=== PATIENT | female | born 1960 | race Caucasian/White ===

== ENCOUNTER 2023-12-01 02:53 | Emergency (ER) | payer OTHER, MEDICARE, SELFPAY ==
--- NOTE | 2023-12-01 02:40 | ED.FALL ---
HPI - Fall General Chief Complaint: Fall Stated Complaint: fall going to BR History of Present Illness HPI Narrative: 63-year-old female who presents with right shoulder pain after falling from standing height while attempting to return to bed after going to the bathroom. No head injury or loss of consciousness reported. Patient reports being in her usual state of health prior to incident. Patient stated right shoulder pain is described as a dull, throbbing ache that is worse with range of motion and palpation. No medications used for symptom relief. EMS contacted the patient arrives via ambulance awake, alert, oriented x3, in no apparent distress and maintaining her own airway. Related Data Previous Rx's Medication Instructions Recorded oxycodone-acetaminophen 5 mg-325 1 tab PO Q4-6H PRN pain #20 tabs 12/01/23 mg tablet (Percocet) Allergies Allergy/AdvReac Type Severity Reaction Status Date / Time Sulfa (Sulfonamide Allergy Verified 12/01/23 03:16 Antibiotics) Penicillins AdvReac Verified 12/01/23 03:16 Review of Systems Review of Systems Narrative: See HPI for pertinent positives, otherwise review of systems negative Exam Initial Vital Signs Initial Vital Signs: Vital Signs Temperature 98.0 F 12/01/23 03:01 Pulse Rate 100 H 12/01/23 03:01 Respiratory Rate 22 12/01/23 03:01 Blood Pressure 161/70 H 12/01/23 03:01 Pulse Oximetry 95 12/01/23 03:01 Oxygen Delivery Method Room Air 12/01/23 03:01 Const General: cooperative, well developed, well groomed and No acute distress [facility] Head: normal to inspection, normocephalic, atraumatic, No contusion, No hematoma, No palpable skull fracture and No scalp tenderness Ears: external ears normal and TM's normal bilaterally Mouth: oral mucosae normal, tongue normal and oropharynx normal Teeth and gingiva: dentition normal Throat: uvula midline Eyes General: Yes appearance normal, both eyes and all related structures Neck Neck: normal visual inspection and full ROM Chest Chest: normal inspection of the chest, No crepitus and No tenderness Resp Effort & Inspection: normal respiratory effort and able to speak in complete sentences Cardio Rate: regular rate Rhythm: regular rhythm Pulses: radial pulses present GI Inspection: normal to inspection Palpation: soft, No guarding and No tender Other: Exam deferred Back/Spine/Pelvis Back: normal to inspection, No back tenderness, No ecchymosis and No erythema Cervical Spine: No cervical spinal tenderness and No step off deformity Thoracic/Lumbar Spine: thoracic and lumbar spine normal to inspection, No thoracic spinal tenderness and No lumbar spinal tenderness Skin General: no rashes or lesions noted Neuro General: patient alert, patient awake, patient oriented x3 and moves all extremities Extrem General: normal to inspection and capillary refill normal Other: Diffuse right tenderness, no obvious deformity, ecchymoses. Distal sensation and circulation intact of right upper extremity Psych Appearance: grossly normal (obese) Speech and Movement: speech and movement normal, agitated, speech clear and restless Mood: anxious mood and labile mood Course Course Course Narrative: See MDM Orders Ordered: ED Orders 12/01/23 02:54 XR shoulder RT 1V Stat 12/01/23 03:20 XR hand LT min 3V Stat Discontinued Medications Fentanyl (Fentanyl 100 Mcg/2 Ml Inj) 25 mcg IV NOW ONE Stop: 12/01/23 02:55 Last Admin: 12/01/23 03:17 Dose: 25 mcg Lidocaine (Lidocaine 5% Patch) 1 each TOP NOW ONE Stop: 12/01/23 03:05 Last Admin: 12/01/23 03:39 Dose: 1 each Midazolam HCl (Midazolam 2 Mg/2 Ml Vial) 0.5 mg IV NOW ONE Stop: 12/01/23 03:17 Last Admin: 12/01/23 03:30 Dose: 0.5 mg Morphine Sulfate (Morphine 4 Mg/Ml Inj) 4 mg IV NOW ONE Stop: 12/01/23 03:28 Last Admin: 12/01/23 03:38 Dose: 4 mg Morphine Sulfate (Morphine 4 Mg/Ml Inj) 4 mg IV NOW ONE Stop: 12/01/23 04:03 Last Admin: 12/01/23 04:13 Dose: 4 mg Vital Signs Vital signs: Vital Signs - 8 hr 12/01/23 03:01 12/01/23 03:02 12/01/23 03:02 Temperature 98.0 F Pulse Rate 100 H 107 H Respiratory Rate 22 Blood Pressure 161/70 H 188/88 H Pulse Oximetry 95 93 Oxygen Delivery Method Room Air 12/01/23 03:12 12/01/23 03:12 12/01/23 03:30 Temperature Pulse Rate 103 H 101 H Respiratory Rate Blood Pressure 161/70 H Pulse Oximetry 93 94 Oxygen Delivery Method 12/01/23 04:04 Temperature Pulse Rate 98 H Respiratory Rate 20 Blood Pressure Pulse Oximetry 94 Oxygen Delivery Method Room Air MDM - Fall Differential Diagnosis Differential diagnosis: Likely dislocation of shoulder region and other (Shoulder contusion, shoulder strain, left hand contusion, left neck strain) Imaging Data Shoulder and hand XR: My Impression: Right proximal humeral fracture, left hand x-ray not suggestive acute disease, fracture dislocation MDM Narrative Medical decision making narrative: Patient presents with mechanical fall from standing height while attempting to return from going to the bathroom. Patient denies head injury and loss of consciousness. No emergent imaging patient's head is warranted at this time looking for calvarial fracture, hemorrhage or infarct. Patient appears very anxious and acutely agitated with anxiety largely driving patient is Dung/presenting symptoms. Imaging shows right proximal humeral fracture. Splint given along with pain control and anxiolysis. Lidoderm patch given for further pain control. Orthopedic follow-up recommended for further evaluation and management. Return precautions given. Patient discharged home in stable condition. Discharge Plan Departure Patient Disposition: Home Clinical Impression: Contusion of right shoulder, initial encounter, Contusion of left hand, initial encounter Proximal humeral fracture Qualifiers: Encounter type: initial encounter Fracture type: closed Fracture morphology: unspecified fracture morphology Laterality: right Qualified Code(s): S42.201A - Unspecified fracture of upper end of right humerus, initial encounter for closed fracture Acute strain of neck muscle Qualifiers: Encounter type: initial encounter Qualified Code(s): S16.1XXA - Strain of muscle, fascia and tendon at neck level, initial encounter Instructions: DI for Contusion, How to Prevent Falls, DI for Humeral Fracture Activity Restrictions/Additional Instructions: No use of right upper extremity until cleared by orthopedics Prescriptions: New oxycodone-acetaminophen [Percocet] 5-325 mg tablet 1 tab PO Q4-6H PRN (Reason: pain) Qty: 20 0RF Referrals: Munir Navarrete MD [Physician] - As soon as possible (Right proximal humerus fracture) Elsa Munson ARNP [Primary Care Provider] - Stand Alone Forms: Patient Portal/API
--- NOTE | 2023-12-01 02:54 | DI.RAD.S_ITS ---
PROCEDURE: XR SHOULDER RT 1V INDICATIONS: fall with right shoulder pain TECHNIQUE: One-view of the shoulder was acquired. COMPARISON: None. FINDINGS: Bones: No acute fractures or dislocations on this single AP view. No suspicious bony lesions. Visualized ribs appear intact. Soft tissues: No suspicious soft tissue calcifications. IMPRESSION: No gross acute osseous abnormality on this single view. If clinical suspicion and/or symptoms persist, additional imaging with repeat plain films, or advanced imaging (e.g. CT, MRI) may be helpful for further assessment. Approved by: Amaury Roberts M.D. on 12/01/2023 at 8:01
[2023-12-01 03:01] VITALS: BP 161/70; PULSE 100; RESP 22; TEMP 36.7; O2SAT 95; BMI 42.3
[2023-12-01 03:02] VITALS: BP 188/88; PULSE 107; O2SAT 93
[2023-12-01 03:12] VITALS: BP 161/70; PULSE 103; O2SAT 93
[2023-12-01] MEDS: fentaNYL 100 MCG/2 ML INJ 25 MCG IV (03:17)
--- NOTE | 2023-12-01 03:20 | DI.RAD.S_ITS ---
PROCEDURE: XR HAND LT MIN 3V INDICATIONS: fall with left thumb bruising TECHNIQUE: Three views of the hand acquired. COMPARISON: None. FINDINGS: Bones: Small ossification is seen ulnar to the 1st metacarpal head and there is mild osseous irregularity at the ulnar base of the 1st proximal phalanx seen which could represent a displaced avulsion fracture fragment. Is subtle linear lucency is seen at the radial styloid that may be related to prominent trabecular markings although a nondisplaced fracture is not excluded. Carpal bones are normally aligned. Area of refraction versus small lucent lesion in the 2nd metacarpal shaft. [id number] osteoarthrosis throughout the hand and wrist. Bones are osteopenic. Soft tissues: No suspicious soft tissue calcifications. IMPRESSION: 1. Suspected small displaced avulsion fracture at the ulnar base of the 1st proximal phalanx. 2. Questionable lucency of the radial styloid on one view only could is likely related to the orientation of the trabecular markings although a nondisplaced fracture is not excluded. Recommend correlation for point tenderness. 3. Small lucent lesion in the 2nd metacarpal shaft is nonspecific but could represent an enchondroma versus focal osteopenia/refraction, although other osseous lesions are not excluded. Recommend correlation with any prior radiographs if available and follow-up radiographs in 6 months if asymptomatic. Findings of 1st proximal phalangeal fracture were discussed with Dr. Romero by telephone on 12/01/2023 at 8:25 AM. Approved by: Amaury Roberts M.D. on 12/01/2023 at 8:27
[2023-12-01 03:30] VITALS: PULSE 101; O2SAT 94
[2023-12-01] MEDS: MIDAZOLAM 2 MG/2 ML VIAL 0.5 MG IV (03:30)
[2023-12-01] MEDS: MORPHINE 4 MG/ML INJ IV ×2 (03:38→04:13)
[2023-12-01] MEDS: LIDOCAINE 5% PATCH 1 EACH TOP (03:39)
--- NOTE | 2023-12-01 04:03 | PC.NURSE ---
pt assisted to [facility] to urinate w/ tech, pt able to stand and bear weight to bilateral lower extremities, R arm in sling, pt able to manuever self w/ standby assist and gait belt in place. transferred to after.
[2023-12-01 04:04] VITALS: PULSE 98; RESP 20; O2SAT 94
== END 2023-12-01 04:28 | disposition home or self-care (01) ==
PROVIDERS: Emergency Provider Emergency Medicine; PCP Nurse Practitioner Family
DX: S42.201A Unspecified fracture of upper end of right humerus, initial encounter for closed fracture (principal); S16.1XXA Strain of muscle, fascia and tendon at neck level, initial encounter; S40.011A Contusion of right shoulder, initial encounter; S60.222A Contusion of left hand, initial encounter; W06.XXXA Fall from bed, initial encounter
CPT/HCPCS: 73020; 73130; 96374; 96375; 96376; 99283; 99284; J2250; J2270; J3010

== ENCOUNTER 2023-12-05 06:16 | Observation (INO) | payer OTHER, MEDICARE, SELFPAY ==
[2023-12-05] VITALS (39 sets, daily range): BP systolic 141–219; BP diastolic 68–100; PULSE 98–144; RESP 16–37; TEMP 36.1–36.8; O2SAT 91–98; BMI 37.4
--- NOTE | 2023-12-05 07:47 | DI.CT.S_ITS ---
PROCEDURE: CT CERVICAL SPINE WO CON INDICATIONS: neck injury tender midline TECHNIQUE: Noncontrast 3 mm thick sections acquired from the skull base to the T4 level. Sagittal and coronal reformats were then constructed. For radiation dose reduction, the following was used: automated exposure control, adjustment of mA and/or kV according to patient size. COMPARISON: [facility], CT, CT HEAD/BRAIN WO CON, 12/05/2023, 8:21. FINDINGS: Image quality: Excellent. Bones: No fractures or dislocations. Visualized superior ribs are intact. Multilevel degenerative changes. Soft tissues: Prevertebral soft tissues are normal in thickness. No paravertebral hematomas. No apical pneumothoraces. IMPRESSION: Multilevel degenerative changes without visualized fracture. Dictated by: Andreea Nava M.D. on 12/05/2023 at 8:42 Approved by: Andreea Nava M.D. on 12/05/2023 at 8:44
--- NOTE | 2023-12-05 07:47 | DI.RAD.S_ITS ---
PROCEDURE: XR CHEST 1V INDICATIONS: dyspnea TECHNIQUE: One view of the chest was acquired. COMPARISON: None. FINDINGS: Surgical changes and devices: None. Lungs and pleura: Lungs are clear. No pleural effusions or pneumothorax. Mediastinum: Mediastinal contours appear normal. Heart size is enlarged. Bones and chest wall: No suspicious bony lesions. Overlying soft tissues appear unremarkable. IMPRESSION: No acute cardiopulmonary abnormality is seen. Dictated by: Yoel Iyer M.D. on 12/05/2023 at 8:23 Approved by: Yoel Iyer M.D. on 12/05/2023 at 8:23
--- NOTE | 2023-12-05 07:47 | DI.CT.S_ITS ---
PROCEDURE: CT HEAD/BRAIN WO CON INDICATIONS: head injury, on plavix TECHNIQUE: Noncontrast 4.5 mm thick angled axial sections acquired from the foramen magnum to the vertex, with coronal and sagittal reformats. For radiation dose reduction, the following was used: automated exposure control, adjustment of mA and/or kV according to patient size. COMPARISON: None. FINDINGS: Image quality: Diagnostic. CSF spaces: Basal cisterns are patent. No extra-axial fluid collections. Ventricles are normal in size and shape. Brain: No midline shift. No intracranial masses or hemorrhage. Smith-white matter interface is normal. Hypodensities in the periventricular and subcortical white matter present as well as ildia suggestive of chronic microvascular ischemia. Skull and face: Calvarium and visualized facial bones are intact, without suspicious lesions. Sinuses: Visualized sinuses and mastoids are clear. IMPRESSION: 1. No acute intracranial process. 2. Mild chronic microvascular ischemic changes. Dictated by: Andreea Nava M.D. on 12/05/2023 at 8:45 Approved by: Andreea Nava M.D. on 12/05/2023 at 8:46
--- NOTE | 2023-12-05 07:50 | ED_ITS ---
HPI - Weakness General Chief complaint: Weakness Stated complaint: Weakness Time Seen by Provider: 12/05/23 07:07 Source: patient Mode of arrival: EMS History of Present Illness HPI Narrative: This is a 63-year-old female with a history of multiple strokes and residual right-sided weakness. She comes in today by ambulance with a chief complaint of generalized pain. Had a ground level fall and was seen here on the 01 of December. Had x-rays of the right shoulder that showed no fracture x-rays of the left hand that showed a couple of small fractures and she was splinted on the left hand and has a right arm in a sling. At baseline she walks with a walker. She says she is having difficulty getting around also today hurts all over feels generally weak, short of breath, and her legs feel ?tight? he is difficult to bend her knees. She has not having any chest pain nausea vomiting. She does have a headache. She says she takes Plavix she also has neck pain. Related Data Home Medications Medication Instructions Recorded Confirmed atorvastatin 80 mg tablet 80 mg PO DAILY 12/05/23 12/05/23 clopidogrel 75 mg tablet 75 mg PO DAILY 12/05/23 12/05/23 ergocalciferol (vitamin D2) 1,250 1,250 mcg PO 12/05/23 mcg (50,000 unit) capsule fenofibrate 54 mg tablet 54 mg PO DAILY 12/05/23 12/05/23 gabapentin 100 mg capsule PO 12/05/23 gabapentin 100 mg capsule PO 12/05/23 insulin glargine 100 unit/mL (3 unit SUBCUT 12/05/23 mL) subcutaneous pen (Lantus Solostar U-100 Insulin) insulin glargine-yfgn 100 unit/mL unit SUBCUT 12/05/23 (3 mL) subcutaneous pen insulin lispro 100 unit/mL SUBCUT 12/05/23 subcutaneous pen (Humalog KwikPen (U-100) Insulin) isosorbide mononitrate 30 mg 30 mg PO DAILY 12/05/23 12/05/23 tablet,extended release 24 hr metformin 500 mg tablet,extended 500 mg PO BID 12/05/23 12/05/23 release 24 hr metoprolol succinate 25 mg 25 mg PO DAILY 12/05/23 12/05/23 tablet,extended release 24 hr oxycodone-acetaminophen 5 mg-325 1 tab PO 4XD PRN Pain (Scale Score 12/05/23 12/05/23 mg tablet 7-10) pantoprazole 40 mg tablet,delayed 40 mg PO DAILY 12/05/23 12/05/23 release trazodone 100 mg tablet 100 mg PO ONCE PM 12/05/23 12/05/23 valsartan 320 mg tablet 320 mg PO DAILY 12/05/23 12/05/23 Previous Rx's Medication Instructions Recorded oxycodone-acetaminophen 5 mg-325 1 tab PO Q4-6H PRN pain #20 tabs 12/01/23 mg tablet (Percocet) Allergies Allergy/AdvReac Type Severity Reaction Status Date / Time Sulfa (Sulfonamide Allergy Verified 12/01/23 03:16 Antibiotics) Penicillins AdvReac Verified 12/01/23 03:16 Exam Initial Vital Signs Initial Vital Signs: Vital Signs Pulse Rate 127 H 12/05/23 06:24 Respiratory Rate 20 12/05/23 06:24 Blood Pressure 167/82 H 12/05/23 06:24 Pulse Oximetry 92 12/05/23 06:24 Oxygen Delivery Method Room Air 12/05/23 06:24 Const General: in distress and anxious HENMT Head: normocephalic and atraumatic Eyes Pupils: PERRL EOM: EOM intact bilaterally Neck Neck: supple and tender Resp Effort & Inspection: audible wheezes, cough and no respiratory distress Cardio Other: Regular rhythm a rate tachycardic no murmur or gallop GI Other: Often nontender with normal bowel sounds no CVAT Back/Spine/Pelvis Other: Thoracic and lumbar spine are nontender Skin Other: Warm and dry without abrasions or bruising Neuro Cranial Nerves: CN's II-XI intact bilaterally Cognition: abnormal cognition (Appears to be baseline) Speech: speech normal Other: Mild right-sided weakness Extrem Other: Has a splint on her left hand. Sling of the right shoulder tenderness right shoulder without deformity distal neurovascular is intact Course Orders Ordered: ED Orders 12/05/23 07:35 CBC Auto Diff [Complete Blood Count AUTO DIFF] Stat Lactate (Lactic Acid) Stat 12/05/23 07:47 CT cervical spine wo con Stat CT head/brain wo con Stat Chest [XR chest 1V] Stat EKG-12 Lead Stat 12/05/23 07:55 D Dimer Stat 12/05/23 08:35 CMP [Comprehensive Metabolic Panel] Stat Troponin I Stat 12/05/23 08:38 Covid-19 + FLU A/B + RSV - PCR Stat 12/05/23 10:51 BMP [Basic Metabolic Panel] Stat Troponin I Stat 12/05/23 11:13 UA Complete [Urinalysis and Microscopic] Stat Urine Culture Stat 12/05/23 12:14 CK [Creatine Kinase] Stat Nitroglycerin (Nitroglycerin 0.4 Mg Sl Tab) 0.4 mg SL [id number] PRN PRN Reason: Chest Pain Last Admin: 12/05/23 11:18 Dose: 0.4 mg Documented By: NOELLE Discontinued Medications Albuterol/Ipratropium (Albuterol/Ipratropium 3 Ml Ampul) 3 ml INH NOW ONE Stop: 12/05/23 09:33 Last Admin: 12/05/23 09:54 Dose: 3 ml Documented By: KORI Aspirin (Aspirin 81 Mg Chew Tab) 324 mg PO NOW ONE Stop: 12/05/23 10:41 Last Admin: 12/05/23 11:01 Dose: 324 mg Documented By: NOELLE Hydromorphone HCl (Hydromorphone 0.5 Mg Inj) 0.5 mg IV NOW ONE Stop: 12/05/23 07:48 Last Admin: 12/05/23 08:05 Dose: 0.5 mg Documented By: MELVIN Sodium Chloride (Normal Saline 0.9%) 1,000 mls @ 1,000 mls/hr IV BOLUS ONE Stop: 12/05/23 10:31 Last Infusion: 12/05/23 10:50 Dose: Infused Documented By: Admin: 12/05/23 09:50 Dose: 1,000 mls/hr Documented By: NOELLE Calcium Gluconate 4.65 meq/ (Sodium Chloride) 60 mls @ 180 mls/hr IV NOW ONE Stop: 12/05/23 09:51 Last Infusion: 12/05/23 11:19 Dose: Infused Documented By: Admin: 12/05/23 10:55 Dose: 180 mls/hr Documented By: NOELLE Ceftriaxone Sodium 2,000 mg/ (Sodium Chloride) 100 mls @ 200 mls/hr IV NOW ONE Stop: 12/05/23 12:01 Metoprolol Tartrate (Metoprolol Tartrate 5 Mg/5 Ml Inj) 5 mg IV Q5M [facility] Stop: 12/05/23 10:56 Last Admin: 12/05/23 11:31 Dose: 5 mg Documented By: Admin: 12/05/23 11:16 Dose: 5 mg Documented By: Admin: 12/05/23 11:04 Dose: 5 mg Documented By: NOELLE Metoprolol Tartrate (Metoprolol Ir 25 Mg Tablet) 25 mg PO NOW ONE Stop: 12/05/23 12:03 Nitroglycerin (Nitroglycerin Oint 1 Inch/Gm Oint...G.) 1 inch TOP NOW ONE Stop: 12/05/23 11:28 Last Admin: 12/05/23 11:48 Dose: 1 inch Documented By: NOELLE Vital Signs Vital signs: Vital Signs - 8 hr 12/05/23 06:24 12/05/23 07:30 12/05/23 08:00 Pulse Rate 127 H 120 H 121 H Respiratory Rate 20 37 H Blood Pressure 167/82 H 187/84 H 188/78 H Pulse Oximetry 92 93 92 Oxygen Delivery Method Room Air Room Air Room Air 12/05/23 08:31 12/05/23 08:35 12/05/23 09:20 Pulse Rate 128 H 128 H 137 H Respiratory Rate 30 H 27 H Blood Pressure 141/70 H 141/70 H 219/91 H Pulse Oximetry 92 91 97 Oxygen Delivery Method Room Air Nasal Cannula Nasal Cannula 12/05/23 09:20 12/05/23 09:30 12/05/23 09:30 Pulse Rate 138 H 137 H Respiratory Rate 35 H 27 H Blood Pressure 209/100 H Pulse Oximetry 98 97 Oxygen Delivery Method 12/05/23 09:40 12/05/23 09:40 12/05/23 09:50 Pulse Rate 133 H Respiratory Rate 21 Blood Pressure 190/79 H 194/89 H Pulse Oximetry 95 Oxygen Delivery Method 12/05/23 09:50 12/05/23 10:00 12/05/23 10:00 Pulse Rate 132 H 134 H Respiratory Rate 20 17 Blood Pressure 186/82 H Pulse Oximetry 94 91 Oxygen Delivery Method Room Air 12/05/23 10:11 12/05/23 10:11 12/05/23 10:20 Pulse Rate 140 H Respiratory Rate 24 Blood Pressure 181/83 H 187/85 H Pulse Oximetry 92 Oxygen Delivery Method 12/05/23 10:20 12/05/23 10:30 12/05/23 10:30 Pulse Rate 144 H 141 H Respiratory Rate 27 H 25 H Blood Pressure 183/73 H Pulse Oximetry 93 93 Oxygen Delivery Method 12/05/23 10:46 12/05/23 10:46 12/05/23 11:00 Pulse Rate 139 H 138 H Respiratory Rate 27 H 22 Blood Pressure 186/84 H Pulse Oximetry 93 92 Oxygen Delivery Method Room Air 12/05/23 11:00 12/05/23 11:10 12/05/23 11:10 Pulse Rate 119 H Respiratory Rate 23 Blood Pressure 178/77 H 180/80 H Pulse Oximetry 91 Oxygen Delivery Method 12/05/23 11:15 12/05/23 11:15 12/05/23 11:18 Pulse Rate 119 H 120 H Respiratory Rate 22 Blood Pressure 176/77 H 176/77 H Pulse Oximetry 92 Oxygen Delivery Method 12/05/23 11:20 12/05/23 11:20 12/05/23 11:25 Pulse Rate 121 H Respiratory Rate 19 Blood Pressure 155/74 H 142/68 H Pulse Oximetry 92 Oxygen Delivery Method 12/05/23 11:25 12/05/23 11:30 12/05/23 11:30 Pulse Rate 113 H 114 H Respiratory Rate 27 H 22 Blood Pressure 163/75 H Pulse Oximetry 92 92 Oxygen Delivery Method 12/05/23 11:35 12/05/23 11:35 12/05/23 11:40 Pulse Rate 109 H Respiratory Rate 25 H Blood Pressure 163/77 H 164/77 H Pulse Oximetry 92 Oxygen Delivery Method 12/05/23 11:40 12/05/23 11:45 12/05/23 11:45 Pulse Rate 110 H 111 H Respiratory Rate 21 20 Blood Pressure 166/73 H Pulse Oximetry 91 92 Oxygen Delivery Method Room Air 12/05/23 11:48 Pulse Rate 114 H Respiratory Rate Blood Pressure 166/73 H Pulse Oximetry Oxygen Delivery Method MDM - Weakness Medical Records Medical records narrative: Obtain discharge summary from [place] and reviewed discharge summary from 2019 Lab Data Lab results narrative: Initial potassium on [facility] is 6.0, repeat is 0.5. CBC with diff is unremarkable. Troponin is elevated, 0.66 trending down on rechecked. D-dimer is normal when adjusted for age, urinalysis shows pyuria and bacteriuria 12/05/23 07:35 12/05/23 10:51 Labs: Lab Results 12/05/23 12/05/23 12/05/23 Range/Units 07:35 07:55 08:35 WBC 10.4 (4.5-11.0) X10^3/uL RBC 4.33 (4.0-5.2) X10^6/uL Hgb 12.3 (12.0-16.0) g/dL Hct 37.2 (36-46) % MCV 85.8 (80-100) fL MCH 28.5 (26-34) PG MCHC 33.2 (30-36) % RDW 15.9 H (11.6-14.8) % Plt Count 271 (150-400) X10^3/uL Neut % (Auto) 79.9 H (50-75) % Lymph % (Auto) 9.7 L (25-40) % [place] % (Auto) 7.2 (3-14) % Eos % (Auto) 2.1 (2-4) % Baso % (Auto) 1.1 (0-2) % Neut # (Auto) 8300 H (5808-7738) /uL Lymph # (Auto) 1000 L (9015-6263) /uL [place] # (Auto) 800 (0-900) /uL Eos # (Auto) 200 (0-450) /uL Baso # (Auto) 100 (0-100) /uL D-Dimer 618 H (<500) ng/ml Sodium 135 L (137-145) mmol/L Potassium 6.0 H (3.4-5.1) mmol/L Chloride 102 (98-107) mmol/L Carbon Dioxide 23 (22-32) mmol/L BUN 56 H (7-17) mg/dL Creatinine 1.32 H (0.52-1.04) mg/dL Estimated GFR 45 L (>60) mL/min BUN/Creatinine Ratio 42.4 H (6-22) Glucose 184 H (80-110) mg/dL Lactate 1.4 (0.7-2.1) mmol/L Calcium 10.2 (8.4-10.2) mg/dL Total Bilirubin 0.9 (0.2-1.3) mg/dL AST 49 H (14-36) IU/L ALT 31 (<35) IU/L Alkaline Phosphatase 75 (38-126) U/L Troponin I 0.066 H (0.01-0.034) ng/mL Total Protein 7.9 (6.3-8.2) g/dL Albumin 4.3 (3.5-5.0) g/dL Globulin 3.6 (1.7-4.1) g/dL Albumin/Globulin Ratio 1.2 (1.0-2.8) Urine Color Urine Appearance Urine pH (4.5-8.0) Ur Specific [place] (1.000-1.035) Urine Protein (Negative) Urine Glucose (UA) (Negative) g/dL Urine Ketones (NEGATIVE) Urine Occult Blood (Negative) Urine Nitrate (Negative) Urine Bilirubin (NEGATIVE) Urine Urobilinogen (0.2) E.U./dL Ur Leukocyte Esterase (NEGATIVE) Urine RBC (0-5/HPF) Urine WBC (0-5/HPF) Ur Squamous Epith Cells (0-5/HPF) Urine Bacteria (None) Ur Culture Indicated? SARS-CoV-2 (PCR) (Negative) Influenza A (RT-PCR) (NEGATIVE) Influenza B (RT-PCR) (NEGATIVE) RSV (PCR) (Negative) 12/05/23 12/05/23 12/05/23 Range/Units 08:38 10:51 11:13 WBC (4.5-11.0) X10^3/uL RBC (4.0-5.2) X10^6/uL Hgb (12.0-16.0) g/dL Hct (36-46) % MCV (80-100) fL MCH (26-34) PG MCHC (30-36) % RDW (11.6-14.8) % Plt Count (150-400) X10^3/uL Neut % (Auto) (50-75) % Lymph % (Auto) (25-40) % [place] % (Auto) (3-14) % Eos % (Auto) (2-4) % Baso % (Auto) (0-2) % Neut # (Auto) (2216-9593) /uL Lymph # (Auto) (0372-5947) /uL [place] # (Auto) (0-900) /uL Eos # (Auto) (0-450) /uL Baso # (Auto) (0-100) /uL D-Dimer (<500) ng/ml Sodium 135 L (137-145) mmol/L Potassium 5.5 H (3.4-5.1) mmol/L Chloride 103 (98-107) mmol/L Carbon Dioxide 24 (22-32) mmol/L BUN 52 H (7-17) mg/dL Creatinine 1.26 H (0.52-1.04) mg/dL Estimated GFR 47 L (>60) mL/min BUN/Creatinine Ratio 41.3 H (6-22) Glucose 180 H (80-110) mg/dL Lactate (0.7-2.1) mmol/L Calcium 9.6 (8.4-10.2) mg/dL Total Bilirubin (0.2-1.3) mg/dL AST (14-36) IU/L ALT (<35) IU/L Alkaline Phosphatase (38-126) U/L Troponin I 0.046 H (0.01-0.034) ng/mL Total Protein (6.3-8.2) g/dL Albumin (3.5-5.0) g/dL Globulin (1.7-4.1) g/dL Albumin/Globulin Ratio (1.0-2.8) Urine Color Yellow Urine Appearance Sl cloudy Urine pH 5.5 (4.5-8.0) Ur Specific [place] 1.015 (1.000-1.035) Urine Protein Negative (Negative) Urine Glucose (UA) Negative (Negative) g/dL Urine Ketones Negative (NEGATIVE) Urine Occult Blood Negative (Negative) Urine Nitrate Positive H (Negative) Urine Bilirubin Negative (NEGATIVE) Urine Urobilinogen 0.2 (0.2) E.U./dL Ur Leukocyte Esterase 2+ H (NEGATIVE) Urine RBC 0-1/hpf (0-5/HPF) Urine WBC 10-30/hpf H (0-5/HPF) Ur Squamous Epith Cells 0-1 /hpf (0-5/HPF) Urine Bacteria Many (>30) H (None) Ur Culture Indicated? Specimen cultured SARS-CoV-2 (PCR) Negative (Negative) Influenza A (RT-PCR) Flu a negative (NEGATIVE) Influenza B (RT-PCR) Flu b negative (NEGATIVE) RSV (PCR) Negative (Negative) Imaging Data Chest x-ray: My Impression: Independently reviewed, no acute findings Radiologist Impression: No acute abnormality reported by Radiology CT scan - head: My Impression: Independent review no acute findings Radiologist Impression: No acute findings reported by Radiology CT - cervical spine: My Impression: Independent review, no acute findings Radiologist Impression: No acute findings reported by Radiology ECG Data Interpretation: EKG shows a regular rhythm that is probably sinus with a left bundle-branch block. Rate is 128 no old EKGs available for comparison. MDM Narrative Medical decision making narrative: 63-year-old female complaining of generalized weakness and generalized pain on arrival. She is noted to be hypertensive and tachycardic on arrival as well, is also wheezy. She was treated with albuterol and wheezing improved. EKG showed a left bundle-branch block, we have no old EKG available for comparison. Potassium and troponin were elevated, she was treated with IV fluids, nitrates aspirin calcium gluconate, hypertension was treated with metoprolol. She remained hypertensive heart rate is trending down, she has not having chest pain did have some chest tightness earlier but never endorsed chest pain. Urine looked infected she was given ceftriaxone IV. She will be admitted to the hospitalist service Discharge Plan Departure Patient Disposition: Admitted As Inpatient Clinical Impression: Acute hyperkalemia, Elevated troponin I level Urinary tract infection Qualifiers: Urinary tract infection type: site unspecified Hematuria presence: without hematuria Qualified Code(s): N39.0 - Urinary tract infection, site not specified
[2023-12-05 08:03] LABS: Add Manual Diff / Slide Review NO; Basophils Absolute Auto 100 /uL (0-100); Basophils Percent Auto 1.1 % (0-2); Eosinophils Absolute Auto 200 /uL (0-450); Eosinophils Percent Auto 2.1 % (2-4); Hematocrit 37.2 % (36-46); Hemoglobin 12.3 g/dL (12.0-16.0); Lymphocytes Absolute Auto 1000 /uL (1100-4500); Lymphocytes Percent Auto 9.7 % (25-40); Mean Corpuscular HGB Conc 33.2 % (30-36); Mean Corpuscular Hemoglobin 28.5 PG (26-34); Mean Corpuscular Volume 85.8 fL (80-100); Monocytes Absolute Auto 800 /uL (0-900); Monocytes Percent Auto 7.2 % (3-14); Neutrophils Absolute Auto 8300 /uL (1500-7000); Neutrophils Percent Auto 79.9 % (50-75); Platelet Count 271 X10^3/uL (150-400); Red Blood Cell Count 4.33 X10^6/uL (4.0-5.2); Red Cell Distribution Width 15.9 % (11.6-14.8); White Blood Cell Count 10.4 X10^3/uL (4.5-11.0)
[2023-12-05] MEDS: HYDROMORPHONE 0.5 MG INJ IV (08:05)
--- NOTE | 2023-12-05 08:12 | PC.NURSE ---
Pt came to the ED because she was having increased and uncontrollable pain in right arm from recent fall. Pt was seen here on 12/01 and dx with right humerus fx and right hand fx. Pt reports that she is feeling weaker and tired and every time she moves a sharp, shooting pain radiates down her right arm that she rates as a 10/10. Pt also c/o generalized weakness and has hx of stroke. Denies any n/v, sob, cp. Pt HR 124, bp 189/88, o2 98% on RA and RR 30. Skin pale and cool to touch. Pt answers all questions appropriately and a&ox4 but must stop frequently due to pain and exhaustion. Pt reports that she does not want to go home because she does not feel as though she or her are able care for her. Pt awaiting RN WOUND CARE consult. Dr Jacobsen notified of pt condition.
[2023-12-05 08:18] LABS: Lactate (Lactic Acid) 1.4 mmol/L (0.7-2.1)
[2023-12-05 08:53] LABS: Alanine Aminotransferase 31 IU/L (<35); Albumin 4.3 g/dL (3.5-5.0); Albumin Globulin Ratio 1.2 (1.0-2.8); Alkaline Phosphatase 75 U/L (38-126); Aspartate Aminotransferase 49 IU/L (14-36); BUN Creatinine Ratio 42.4 (6-22); Bilirubin Total 0.9 mg/dL (0.2-1.3); Blood Urea Nitrogen 56 mg/dL (7-17); Calcium 10.2 mg/dL (8.4-10.2); Carbon Dioxide 23 mmol/L (22-32); Chloride 102 mmol/L (98-107); Estimated Glomerular Filt Rate 45 mL/min (>60); Globulin 3.6 g/dL (1.7-4.1); Glucose 184 mg/dL (80-110); HEMOLYSIS < 15 (0-50); Sodium 135 mmol/L (137-145); Total Protein 7.9 g/dL (6.3-8.2)
[2023-12-05 09:22] LABS: Influenza A - CEPHEID Flu A NEGATIVE (NEGATIVE); Influenza B - CEPHEID Flu B NEGATIVE (NEGATIVE); Respiratory Syncytial Virus Negative (Negative)
[2023-12-05 09:23] LABS: COVID-19 CEPHEID 4-PLEX PCR Negative (Negative)
--- NOTE | 2023-12-05 09:31 | PC.NURSE ---
This RNs first interaction with patient. Pt moved from room 13 to room 6. Full bedding and gown change immediately after room change. Purewick device in place. Pt resting comfortably, AOx4, GCS 15.
[2023-12-05 09:46] LABS: D Dimer 618 ng/ml (<500)
[2023-12-05] MEDS: SODIUM CHLORIDE 0.9% 1,000 ML 1000 ML IV (09:50)
[2023-12-05] MEDS: ALBUTEROL/IPRATROPIUM 3 ML AMPUL INH (09:54)
[2023-12-05 10:01] LABS: Troponin I 0.066 ng/mL (0.01-0.034)
[2023-12-05] MEDS: CALCIUM GLUCONATE 4.65 MEQ in SODIUM CHLORIDE 0.9% 50 ML 180 MEQ IV (10:55)
[2023-12-05] MEDS: ASPIRIN 81 MG CHEW TAB 324 MG PO (11:01)
[2023-12-05] MEDS: METOPROLOL TARTRATE 5 MG/5 ML INJ IV ×3 (11:04→11:31)
[2023-12-05] MEDS: NITROGLYCERIN 0.4 MG SL TAB SL (11:18)
[2023-12-05 11:21] LABS: BUN Creatinine Ratio 41.3 (6-22); Blood Urea Nitrogen 52 mg/dL (7-17); Calcium 9.6 mg/dL (8.4-10.2); Carbon Dioxide 24 mmol/L (22-32); Chloride 103 mmol/L (98-107); Estimated Glomerular Filt Rate 47 mL/min (>60); Glucose 180 mg/dL (80-110); HEMOLYSIS < 15 (0-50); Potassium 5.5 mmol/L (3.4-5.1); Sodium 135 mmol/L (137-145)
[2023-12-05 11:22] LABS: Appearance Urine UA SL CLOUDY; Bilirubin Urine UA NEGATIVE (NEGATIVE); Color Urine UA YELLOW; Glucose Urine UA NEGATIVE (Negative); Ketones Urine UA NEGATIVE (NEGATIVE); Leukocyte Esterase Urine UA 2+ (NEGATIVE); Nitrite Urine UA POSITIVE (Negative); Occult Blood Urine UA NEGATIVE (Negative); Protein Urine UA NEGATIVE (Negative); Specific Gravity Urine UA 1.015 (1.000-1.035); Urobilinogen Urine UA 0.2 E.U./dL (0.2)
[2023-12-05 11:23] LABS: pH Urine UA 5.5 (4.5-8.0)
[2023-12-05 11:31] LABS: Troponin I 0.046 ng/mL (0.01-0.034)
[2023-12-05 11:35] LABS: Bacteria Urine Many (>30); Culture Indicated Urine Specimen Cultured; RBC Urine 0-1/HPF (0-5/HPF); Squamous Epithelial Cell Urine 0-1 /HPF (0-5/HPF); WBC Urine 10-30/HPF (0-5/HPF)
[2023-12-05] MEDS: NITROGLYCERIN OINT 1 INCH/GM OINT...G. TOP (11:48)
[2023-12-05] MEDS: METOPROLOL IR 25 MG TABLET PO (12:17)
[2023-12-05] MEDS: cefTRIAXone 2,000 MG in SODIUM CHLORIDE 0.9% 100 ML 200 MG IV (12:18)
[2023-12-05 13:03] LABS: Creatine Kinase 557 U/L (30-135)
--- NOTE | 2023-12-05 13:22 | PM.HP.1 ---
History of Present Illness History of Present Illness Date Patient Seen: 12/05/23 Chief complaint: Weakness Narrative: Mary Small is a 63yo F with PMH of multiple strokes on plavix, chronic R-sided deficits and uses walker, DM2 on insulin, hypertension, hyperlipidemia, GERD and insomnia who presents with R shoulder pain, falls and INGRIS. Patient states she became acutely weak at home today and fell. She recently fell at home and broke her R shoulder which has been in a sling. She also broke her L thumb which has been in a spica splint. Was suppoed to see ortho yesterday but she missed the appt. She reports significant pain in her R shoulder with movement. In the ED found to have an INGRIS and hyperkalemia of 6. Given IVF and this improved. She denies CP, NV, abd pain or diarrhea. PFSH Social History household members: spouse Smoking Status: Former smoker Meds Home Medications and Allergies Home Medications Medication Instructions Recorded Confirmed Type oxycodone-acetaminophen 5 mg-325 1 tab PO Q4-6H PRN pain #20 tabs 12/01/23 12/05/23 Rx mg tablet (Percocet) atorvastatin 80 mg tablet 80 mg PO DAILY 12/05/23 12/05/23 History clopidogrel 75 mg tablet 75 mg PO DAILY 12/05/23 12/05/23 History ergocalciferol (vitamin D2) 1,250 1,250 mcg PO QWEEK 12/05/23 12/05/23 History mcg (50,000 unit) capsule fenofibrate 54 mg tablet 54 mg PO DAILY 12/05/23 12/05/23 History gabapentin 100 mg capsule 100 mg PO QPM 12/05/23 12/05/23 History insulin glargine 100 unit/mL (3 47 unit SUBCUT BID 12/05/23 12/05/23 History mL) subcutaneous pen (Lantus Solostar U-100 Insulin) insulin lispro 100 unit/mL See Protocol SUBCUT AC 12/05/23 12/05/23 History subcutaneous pen (Humalog KwikPen (U-100) Insulin) isosorbide mononitrate 30 mg 30 mg PO DAILY 12/05/23 12/05/23 History tablet,extended release 24 hr metformin 500 mg tablet,extended 500 mg PO BID 12/05/23 12/05/23 History release 24 hr metoprolol succinate 25 mg 25 mg PO DAILY 12/05/23 12/05/23 History tablet,extended release 24 hr oxycodone-acetaminophen 5 mg-325 1 tab PO 4XD PRN Pain (Scale Score 12/05/23 12/05/23 History mg tablet 7-10) pantoprazole 40 mg tablet,delayed 40 mg PO DAILY 12/05/23 12/05/23 History release trazodone 100 mg tablet 100 mg PO ONCE PM 12/05/23 12/05/23 History valsartan 320 mg tablet 320 mg PO DAILY 12/05/23 12/05/23 History Allergies Allergy/AdvReac Type Severity Reaction Status Date / Time Sulfa (Sulfonamide Allergy Verified 12/01/23 03:16 Antibiotics) Penicillins AdvReac Verified 12/01/23 03:16 Review of Systems Review of Systems Narrative: All other systems reviewed with the patient and are negative unless otherwise stated. Exam Vital Signs (past 8 hours): - 12/05/23 06:24 12/05/23 07:30 12/05/23 08:00 Pulse Rate 127 H 120 H 121 H Respiratory Rate 20 37 H Blood Pressure 167/82 H 187/84 H 188/78 H Pulse Oximetry 92 93 92 Oxygen Delivery Method Room Air Room Air Room Air 12/05/23 08:31 12/05/23 08:35 12/05/23 09:20 Pulse Rate 128 H 128 H 137 H Respiratory Rate 30 H 27 H Blood Pressure 141/70 H 141/70 H 219/91 H Pulse Oximetry 92 91 97 Oxygen Delivery Method Room Air Nasal Cannula Nasal Cannula 12/05/23 09:20 12/05/23 09:30 12/05/23 09:30 Pulse Rate 138 H 137 H Respiratory Rate 35 H 27 H Blood Pressure 209/100 H Pulse Oximetry 98 97 Oxygen Delivery Method 12/05/23 09:40 12/05/23 09:40 12/05/23 09:50 Pulse Rate 133 H Respiratory Rate 21 Blood Pressure 190/79 H 194/89 H Pulse Oximetry 95 Oxygen Delivery Method 12/05/23 09:50 12/05/23 10:00 12/05/23 10:00 Pulse Rate 132 H 134 H Respiratory Rate 20 17 Blood Pressure 186/82 H Pulse Oximetry 94 91 Oxygen Delivery Method Room Air 12/05/23 10:11 12/05/23 10:11 12/05/23 10:20 Pulse Rate 140 H Respiratory Rate 24 Blood Pressure 181/83 H 187/85 H Pulse Oximetry 92 Oxygen Delivery Method 12/05/23 10:20 12/05/23 10:30 12/05/23 10:30 Pulse Rate 144 H 141 H Respiratory Rate 27 H 25 H Blood Pressure 183/73 H Pulse Oximetry 93 93 Oxygen Delivery Method 12/05/23 10:46 12/05/23 10:46 12/05/23 11:00 Pulse Rate 139 H 138 H Respiratory Rate 27 H 22 Blood Pressure 186/84 H Pulse Oximetry 93 92 Oxygen Delivery Method Room Air 12/05/23 11:00 12/05/23 11:10 12/05/23 11:10 Pulse Rate 119 H Respiratory Rate 23 Blood Pressure 178/77 H 180/80 H Pulse Oximetry 91 Oxygen Delivery Method 12/05/23 11:15 12/05/23 11:15 12/05/23 11:18 Pulse Rate 119 H 120 H Respiratory Rate 22 Blood Pressure 176/77 H 176/77 H Pulse Oximetry 92 Oxygen Delivery Method 12/05/23 11:20 12/05/23 11:20 12/05/23 11:25 Pulse Rate 121 H Respiratory Rate 19 Blood Pressure 155/74 H 142/68 H Pulse Oximetry 92 Oxygen Delivery Method 12/05/23 11:25 12/05/23 11:30 12/05/23 11:30 Pulse Rate 113 H 114 H Respiratory Rate 27 H 22 Blood Pressure 163/75 H Pulse Oximetry 92 92 Oxygen Delivery Method 12/05/23 11:35 12/05/23 11:35 12/05/23 11:40 Pulse Rate 109 H Respiratory Rate 25 H Blood Pressure 163/77 H 164/77 H Pulse Oximetry 92 Oxygen Delivery Method 12/05/23 11:40 12/05/23 11:45 12/05/23 11:45 Pulse Rate 110 H 111 H Respiratory Rate 21 20 Blood Pressure 166/73 H Pulse Oximetry 91 92 Oxygen Delivery Method Room Air 12/05/23 11:48 12/05/23 11:50 12/05/23 11:50 Pulse Rate 114 H 114 H Respiratory Rate 23 Blood Pressure 166/73 H 176/79 H Pulse Oximetry 91 Oxygen Delivery Method 12/05/23 11:55 12/05/23 11:55 12/05/23 12:00 Pulse Rate 113 H Respiratory Rate 20 Blood Pressure 180/79 H 177/69 H Pulse Oximetry 93 Oxygen Delivery Method 12/05/23 12:00 12/05/23 12:05 12/05/23 12:05 Pulse Rate 113 H 114 H Respiratory Rate 22 19 Blood Pressure 176/76 H Pulse Oximetry 91 93 Oxygen Delivery Method 12/05/23 12:10 12/05/23 12:10 12/05/23 12:15 Pulse Rate 115 H Respiratory Rate 22 Blood Pressure 169/75 H 172/72 H Pulse Oximetry 92 Oxygen Delivery Method 12/05/23 12:15 12/05/23 12:21 12/05/23 12:21 Pulse Rate 116 H 115 H Respiratory Rate 30 H 24 Blood Pressure 186/98 H Pulse Oximetry 93 92 Oxygen Delivery Method 12/05/23 12:25 12/05/23 12:25 12/05/23 12:30 Pulse Rate 113 H Respiratory Rate 24 Blood Pressure 179/77 H 177/81 H Pulse Oximetry 93 Oxygen Delivery Method 12/05/23 12:30 12/05/23 12:35 12/05/23 12:35 Pulse Rate 115 H 115 H Respiratory Rate 18 24 Blood Pressure 164/79 H Pulse Oximetry 92 93 Oxygen Delivery Method 12/05/23 12:40 12/05/23 12:40 Pulse Rate 112 H Respiratory Rate 18 Blood Pressure 161/72 H Pulse Oximetry 93 Oxygen Delivery Method Oxygen Delivery Method Room Air Narrative Exam Narrative: GEN: no acute distress, obese HEENT: moist mucous membranes, PERRL NECK: trachea midline, no JVD CV: regular rate and rhythm, no murmurs PULM: clear bilaterally ABD: soft, nontender, nondistended, no organomegaly EXT: warm and well perfused with no edema, R shoulder in sling NEURO: awake, alert, oriented, R-sided deficits, speech impediment from prior strokes Objective Labs 12/05/23 07:35 12/05/23 10:51 Labs: Laboratory Results - last 24 hr 12/05/23 12/05/23 12/05/23 07:35 07:55 08:35 WBC 10.4 RBC 4.33 Hgb 12.3 Hct 37.2 MCV 85.8 MCH 28.5 MCHC 33.2 RDW 15.9 H Plt Count 271 Neut % (Auto) 79.9 H Lymph % (Auto) 9.7 L [place] % (Auto) 7.2 Eos % (Auto) 2.1 Baso % (Auto) 1.1 Neut # (Auto) 8300 H Lymph # (Auto) 1000 L [place] # (Auto) 800 Eos # (Auto) 200 Baso # (Auto) 100 D-Dimer 618 H Sodium 135 L Potassium 6.0 H Chloride 102 Carbon Dioxide 23 BUN 56 H Creatinine 1.32 H Estimated GFR 45 L BUN/Creatinine Ratio 42.4 H Glucose 184 H Lactate 1.4 Calcium 10.2 Total Bilirubin 0.9 AST 49 H ALT 31 Alkaline Phosphatase 75 Total Creatine Kinase Troponin I 0.066 H Total Protein 7.9 Albumin 4.3 Globulin 3.6 Albumin/Globulin Ratio 1.2 Urine Color Urine Appearance Urine pH Ur Specific Beaman Urine Protein Urine Glucose (UA) Urine Ketones Urine Occult Blood Urine Nitrate Urine Bilirubin Urine Urobilinogen Ur Leukocyte Esterase Urine RBC Urine WBC Ur Squamous Epith Cells Urine Bacteria Ur Culture Indicated? SARS-CoV-2 (PCR) Influenza A (RT-PCR) Influenza B (RT-PCR) RSV (PCR) 12/05/23 12/05/23 12/05/23 08:38 10:51 11:13 WBC RBC Hgb Hct MCV MCH MCHC RDW Plt Count Neut % (Auto) Lymph % (Auto) [place] % (Auto) Eos % (Auto) Baso % (Auto) Neut # (Auto) Lymph # (Auto) [place] # (Auto) Eos # (Auto) Baso # (Auto) D-Dimer Sodium 135 L Potassium 5.5 H Chloride 103 Carbon Dioxide 24 BUN 52 H Creatinine 1.26 H Estimated GFR 47 L BUN/Creatinine Ratio 41.3 H Glucose 180 H Lactate Calcium 9.6 Total Bilirubin AST ALT Alkaline Phosphatase Total Creatine Kinase 557 H Troponin I 0.046 H Total Protein Albumin Globulin Albumin/Globulin Ratio Urine Color Yellow Urine Appearance Sl cloudy Urine pH 5.5 Ur Specific Beaman 1.015 Urine Protein Negative Urine Glucose (UA) Negative Urine Ketones Negative Urine Occult Blood Negative Urine Nitrate Positive H Urine Bilirubin Negative Urine Urobilinogen 0.2 Ur Leukocyte Esterase 2+ H Urine RBC 0-1/hpf Urine WBC 10-30/hpf H Ur Squamous Epith Cells 0-1 /hpf Urine Bacteria Many (>30) H Ur Culture Indicated? Specimen cultured SARS-CoV-2 (PCR) Negative Influenza A (RT-PCR) Flu a negative Influenza B (RT-PCR) Flu b negative RSV (PCR) Negative Assessment & Plan Assessment & Plan narrative: # INGRIS with hyperkalemia -likely prerenal as improving with IVF -continue IVF -hold home valsartan -low K diet -monitor Cr # mildly elevated troponin -likely demand ischemia -no chest pain # generalized weakness and falls -likely due to prior strokes and dehydration -PT/OT evals -NWB on R arm per ortho, pendulum ok # UTI -UA with pyuria -rocephin x3 days # hypertension -holding valsartan due to INGRIS and hyperK # type 2 diabetes -continue lantus and SSI # hyperlipidemia -continue statin # GERD -continue PPI Code status is full code. DVT prophylaxis with heparin. Proxy is . I have reviewed home meds and used all available resources to reconcile the home meds. Case discussed with ED physician/APC and patient will be admitted to the hospitalist service for further workup and management. This patient will be admitted as observation and will require less than 2 midnights of hospital time to treat INGRIS and weakness.
[2023-12-05] MEDS: SODIUM CHLORIDE 0.9% 1,000 ML 100 ML IV (16:01)
--- NOTE | 2023-12-05 16:16 | PT-IP ANOTE ---
PT eval received and EMR reviewed. pt with previous ED visit 12/01/23 and found to have R shoulder fx and R phalangeal fx. pt was placed on a sling and spica thumb splint per ED note. Checked with hospitalist to clarify if pt is needing ortho consult, and to put in sling and weight bearingn orders. hospital will f/u and agreed to do PT eval order after clarifications. will f/u.
--- NOTE | 2023-12-05 16:23 | PT-IP ANOTE ---
PT eval received and EMR reviewed. pt with previous ED visit 12/01/23 and found to have R shoulder fx and L 1st phalangeal fx. pt was placed on a sling and spica thumb splint per ED note. Checked with hospitalist to clarify if pt is needing ortho consult, and to put in sling and weight bearing orders. hospital will f/u and agreed to do PT eval order after clarifications. will f/u. Hospitalist informed PT regarding clarification but to do PT eval tomorrow. Stated that ortho MD Secrist consulted with pt and pt R shoulder is non-operative but is ok to do pendulum, NWB and sling on RUE and also spica thumb splint on L thumb. will checked on pt tomorrow for PT eval.
[2023-12-05] MEDS: OXYCODONE IR 10 MG TABLET PO ×2 (16:32→21:55)
[2023-12-05 16:55] LABS: Hemoglobin A1C% w Est Avg Glu 7.7 % (4.0-6.0)
[2023-12-05] MEDS: INSULIN LISPRO 100 UNIT/ML 3ML VIAL SUBCUT ×2 (17:11→21:36)
[2023-12-05] MEDS: ACETAMINOPHEN 325 MG TABLET 650 MG PO (18:21)
[2023-12-05] MEDS: TRAZODONE 50 MG TABLET 100 MG PO (21:28)
[2023-12-05] MEDS: GABAPENTIN 100 MG CAPSULE PO (21:28)
[2023-12-05] MEDS: INSULIN GLARGINE 100 UNIT/ML 3ML PEN 47 UNIT SUBCUT (21:35)
[2023-12-06] VITALS (7 sets, daily range): BP systolic 134–149; BP diastolic 66–101; PULSE 72–112; RESP 17–18; TEMP 36.2–37; O2SAT 92–98
[2023-12-06] MEDS: SODIUM CHLORIDE 0.9% 1,000 ML 100 ML IV (01:16)
[2023-12-06] MEDS: ACETAMINOPHEN 325 MG TABLET 650 MG PO ×2 (06:02→21:49)
[2023-12-06] MEDS: OXYCODONE IR 10 MG TABLET PO ×4 (06:03→21:49)
[2023-12-06 06:56] LABS: Add Manual Diff / Slide Review NO; Basophils Absolute Auto 100 /uL (0-100); Basophils Percent Auto 1.2 % (0-2); Eosinophils Absolute Auto 200 /uL (0-450); Eosinophils Percent Auto 2.3 % (2-4); Hematocrit 34.3 % (36-46); Hemoglobin 11.4 g/dL (12.0-16.0); Lymphocytes Absolute Auto 1200 /uL (1100-4500); Lymphocytes Percent Auto 14.4 % (25-40); Mean Corpuscular HGB Conc 33.3 % (30-36); Mean Corpuscular Hemoglobin 28.3 PG (26-34); Mean Corpuscular Volume 84.9 fL (80-100); Monocytes Absolute Auto 700 /uL (0-900); Monocytes Percent Auto 8.1 % (3-14); Neutrophils Absolute Auto 6200 /uL (1500-7000); Platelet Count 246 X10^3/uL (150-400); Red Blood Cell Count 4.03 X10^6/uL (4.0-5.2); Red Cell Distribution Width 16.3 % (11.6-14.8); White Blood Cell Count 8.3 X10^3/uL (4.5-11.0)
[2023-12-06 07:09] LABS: BUN Creatinine Ratio 34.5 (6-22); Blood Urea Nitrogen 30 mg/dL (7-17); Calcium 9.5 mg/dL (8.4-10.2); Carbon Dioxide 28 mmol/L (22-32); Chloride 102 mmol/L (98-107); Estimated Glomerular Filt Rate > 60 mL/min (>60); Glucose 139 mg/dL (80-110); HEMOLYSIS < 15 (0-50); Potassium 4.7 mmol/L (3.4-5.1); Sodium 136 mmol/L (137-145)
[2023-12-06 07:12] LABS: Magnesium 1.5 mg/dL (1.6-2.3)
[2023-12-06] MEDS: MAGNESIUM SULFATE 2 GM/50 ML PIGGYBACK IV (08:40)
[2023-12-06] MEDS: FENOFIBRATE, MICRONIZED 67 MG CAPSULE PO (08:52)
[2023-12-06] MEDS: ATORVASTATIN 20 MG TABLET 80 MG PO (08:52)
[2023-12-06] MEDS: PANTOPRAZOLE DR 40 MG TABLET PO (08:52)
[2023-12-06] MEDS: ISOSORBIDE MONONITRATE ER 30 MG TABLET PO (08:52)
[2023-12-06] MEDS: CLOPIDOGREL 75 MG TABLET PO (08:52)
[2023-12-06] MEDS: METOPROLOL ER 25 MG TABLET PO (08:52)
[2023-12-06] MEDS: INSULIN GLARGINE 100 UNIT/ML 3ML PEN 47 UNIT SUBCUT ×2 (08:57→21:57)
[2023-12-06] MEDS: INSULIN LISPRO 100 UNIT/ML 3ML VIAL SUBCUT ×4 (08:58→21:57)
--- NOTE | 2023-12-06 09:55 | PT.IIE ---
Current Diagnoses Acute kidney failure, unspecified (12/05/23) Physical Therapy Inpatient Evaluation/Re-Eval M1 PT/OT-IP Prior Functional Status Start: 12/06/23 11:18 Freq: NEEDED Status: Active Protocol: Document 12/06/23 09:55 AB (Rec: 12/06/23 11:48 AB [email or web address]) Medical Review Prior Functional Status Medical History Reviewed Yes Communication able to make needs known; [place] Mobility and Gait pt stated that she was modified independent with all mobilities and ambulation using a 4WW Prior Functional Level (Other details) pt went to the ED 12/01/23 after a fall. pt was sent home the same day. pt found to have a R shoulder fx and L 1st proximal phalangeal fx and was put on a sling and thumb spica splint. pt presented to the ED yesterday again due to weakness and difficulty moving at home and also c/o pain. Social History Household Members spouse Living Arrangements House Number of Floors (Floors) One Floor Number of Stairs To Enter/Railing? ramp to enter Home Environment Standard Height Toilet,Walk in Shower,Ramp Home Equipment Four Wheel Walker,Manual Wheelchair,Shower Seat with Backrest,Hand Held Shower,Lift Recliner,Grab Bars Near Toilet Additional Social History Comment pt has an adjustable bed at home but has been sleeping on her lift chair since shoulder fx M2 PT-IP Current Condition Start: 12/06/23 11:18 Freq: NEEDED Status: Active Protocol: Document 12/06/23 09:55 AB (Rec: 12/06/23 11:48 AB [email or web address]) Physical Therapy Current Condition Current Condition Evaluation Date 12/06/23 Treatment Diagnosis UTI; s/p fall; R shld fx; L 1st prox phalangeal fx; difficulty in walking Onset Date 12/05/23 M3 PT-IP Subjective Start: 12/06/23 11:18 Freq: NEEDED Status: Active Protocol: Document 12/06/23 09:55 AB (Rec: 12/06/23 11:48 AB [email or web address]) Subjective Physical Therapy Visit Type Type Initial Evaluation Visit Start Time 09:55 Visit Stop Time 11:03 Total Visit Minutes 68 Number of FIRER LOW PRESSURE Visits 0 Physical Therapy Visit Comments Patient Comments anxious and fearful of moving Therapy Pain Assessment Pain When Pain Assessed At Rest Pain Present Pain Present Pain Reported Location Right Shoulder Intensity 8 Scale Used Numeric (0 - 10) M4 PT-IP Mobility and Gait Start: 12/06/23 11:18 Freq: NEEDED Status: Active Protocol: Document 12/06/23 09:55 AB (Rec: 12/06/23 11:48 AB [email or web address]) PT-Bed Mobility Assessment Supine to Sit Supine to Sit Maximum Assistance,2 Person Assistance,Head of Bed Elevated Scooting Scooting to Edge of Bed Maximum Assistance PT-Transfer Assessment Sit to and From Stand Sit to and from Stand Maximum Assistance,2 Person Assistance,Use of Upper Extremities Equipment Transfer Assistive Device Gait Belt,Blue Walker Orthotic/Prosthetic Devices or Brace: No Transfers Transfer Destination Chair Transfer Technique Stand Step Pivot Transfer Ability Level of Assist Maximum Assistance,2 Person Assistance,Use of Upper Extremities Comments Mobility Comments pt supine in bed agreed to do PT but easily gets anxious and fearful of moving. PLOF and home set up obtained. BP: 133/ 78 O2 sat at RA varies: 88-94% MD: 112. pt tends to hold her breath and informed PT that she gets more anxious if she was told to breathe. asked nurse if pt can be given O2 during mobility and agreed . pt provided with 2L/min O2 and O2 sat increased to 98%. Assisted pt with donning of L thumb spica splint. pt completed supine to sit max Ax 2 and max cues with HOB elevated. pt sat on EOB CGA to min A and max cues. c/o increase pain. adjusted R shoulder sling on pt. attempted to obtain BP but pt is anxious and tensing up and unable to get an accurate reading. pt highly anxious and c/o increase pain requiring increase and frequent rest breaks in between activities. educated pt on use of hemiwalker for support. pt completed sit to stand max A x 2 and max cues. pt completed step transfer to chair using hemiwalker max A x 2 and max cues. positioned pt on the chair. Left pt with OT in room. Gait Assessment Comments Gait Comments unable at this time PT-Balance Assessment Sitting Balance and Reactions Static Sitting Balance Ability Fair Dynamic Sitting Balance Ability Fair Standing Balance and Reactions Static Standing Balance Ability Poor Dynamic Standing Balance Ability Poor Device Used hemiwalker M5 PT-IP Objective Assessments Start: 12/06/23 11:18 Freq: NEEDED Status: Active Protocol: Document 12/06/23 09:55 AB (Rec: 12/06/23 11:48 AB [email or web address]) Orientation Orientation/Cognition Level of Alertness Alert Orientation Name,Place,Situation Language Function Ability Hard of Hearing Safety Awareness Decreased Safety Awareness Memory Description No Deficits Noted Gross Range of Motion Lower Extremity ROM Assessment Within Functional Limits Impairments increase LLE extensor tightness Strength Lower Extremity Strength Assessment Bilaterally Impaired Hip 3+/5 Knee 4-/5 M6 PT-IP Treatment Start: 12/06/23 11:18 Freq: NEEDED Status: Active Protocol: Document 12/06/23 09:55 AB (Rec: 12/06/23 11:48 AB [email or web address]) Physical Therapy Treatment Education Education Provided Precautions,Weight Bearing Status,Safety M7 PT-IP Assessment and Plan Start: 12/06/23 11:18 Freq: NEEDED Status: Active Protocol: Document 12/06/23 09:55 AB (Rec: 12/06/23 11:48 AB [email or web address]) PT Summary Assessment and Plan Potential Rehabilitation Potential Fair Status of Condition at Evaluation Evolving Summary Impairments Pain,ROM,Strength,Balance, Coordination,Sensation,Tone, Cognition,Bed Mobility, Transfers,Gait,Activity Tolerance Assessment Summary pt is a 63 y/o F who presented to the ED due to weakness and pain. pt was at the ED 12/01 s/p fall and sustained a R shoulder fx and L thumb fx and was put on a R sling and L thumb spica splint. pt was having difficulty moving at home since pt was using a 4WW at baseline and after recent fall was unable to use a walker due to her fractures. pt requiring max A x 2 with bed mobility and transfers and unable to ambulate at this time. pt will require SNF rehab to improve overall strength and mobility. Goals Bed Mobility Goal Minimal Assistance Transfer Goal Moderate Assistance Gait Goal Moderate Assistance,Blue Walker Gait Distance 25 Other Goals improve bed mobility, transfers, ambulation using LRAD ~ 100 ft SBA Days to Meet Goals 10 Frequency of Treatment Frequency Of Treatment Once a Day Treatment Plan Physical Therapy Treatment Plan Bed Mobility Training,Transfer Training,Gait Training, Therapeutic Exercise,Balance Retraining,Discharge Planning, Hot or Cold Pack,Neuromuscular Re-ed,Coordination Retraining ,Manual Therapy Precautions Shoulder Precautions Sling,Pendulums Weight Bearing Status Weight Bearing Status Non-Weight Bearing Allowed Weight Bearing Amount (enter % RUE NWB or #) (%) Recommendations To Nursing Amount of Assist Needed Mechanical Lift Discharge Recommendations PT Discharge Recommendations SNF Rehab Transportation Needs at Discharge Wheelchair/Cabulance
[2023-12-06] MEDS: cefTRIAXone 1,000 MG in SODIUM CHLORIDE 0.9% 100 ML 200 MG IV (11:07)
--- NOTE | 2023-12-06 11:30 | OT.IP.EVAL ---
Current Diagnoses Acute kidney failure, unspecified (12/05/23) Occupational Therapy Inpatient Evaluation/Re-Eval M1 PT/OT-IP Prior Functional Status Start: 12/06/23 13:44 Freq: NEEDED Status: Active Protocol: Document 12/06/23 10:27 [facility] (Rec: 12/06/23 14:11 [facility] [id number]) Medical Review Prior Functional Status Medical History Reviewed Yes Communication able to make needs known; [place] Mobility and Gait pt stated that she was modified independent with all mobilities and ambulation using a 4WW Activities of Daily Living and IADL's Prior to her fall able to do ADL and IADL needs. Prior Functional Level (Other details) pt went to the ED 12/01/23 after a fall. pt was sent home the same day. pt found to have a R shoulder fx and L 1st proximal phalangeal fx and was put on a sling and thumb spica splint. pt presented to the ED yesterday again due to weakness and difficulty moving at home and also c/o pain. Social History Household Members spouse Living Arrangements House Number of Floors (Floors) One Floor Number of Stairs To Enter/Railing? ramp to enter Home Environment Standard Height Toilet,Walk in Shower,Ramp Home Equipment Four Wheel Walker,Manual Wheelchair,Bedside Commode, Shower Seat with Backrest,Hand Held Shower,Lift Recliner, Grab Bars Near Toilet Additional Social History Comment pt has an adjustable bed at home but has been sleeping on her lift chair since shoulder fx. Pt states had a large personal watermelon size ovarian cyst take out a few years ago and since that time has had a weak core and use of the lift chair to come to stand. M2 OT-IP Current Condition Start: 12/06/23 13:44 Freq: Status: Active Protocol: Document 12/06/23 10:27 [facility] (Rec: 12/06/23 14:11 [facility] [id number]) Occupational Therapy Current Condition Current Condition Evaluation Date 12/06/23 Treatment Diagnosis UTI, Right shoulder fx, Left 1st proximal phalangeal fx Post Operative Precautions Shoulder Precautions Sling Other Precautions RUE in sling, thumb spica for left hand. Weight Bearing Status Allowed Weight Bearing Amount (enter % NWB RUE, avoid pressure on base of left or #) (%) thumb. M3 OT- IP Subjective and Pain Start: 12/06/23 13:44 Freq: Status: Active Protocol: Document 12/06/23 10:27 [facility] (Rec: 12/06/23 14:11 [facility] [id number]) OT- Subjective Occupational Therapy Visit Type Type Initial Evaluation Visit Start Time : Visit Stop Time 11:30 Total Visit Minutes 63 Occupational Therapy Visit Comments Patient Comments Pt agreed to get up and PT also present during initial therapy evals. Patient/Caregiver Goals TO get better. OT Pain Assessment Pain When Pain Assessed During Mobility Pain Present Pain Present Pain Reported Location Right Shoulder Intensity 7 Scale Used Numeric (0 - 10) M4 OT- IP ADL's Start: 12/06/23 13:44 Freq: Status: Active Protocol: Document 12/06/23 10: [facility] (Rec: 12/06/23 14:11 [facility] [id number]) OT [id number] General Evaluation Areas Needing Assistance Cutting Food,Opening Containers Comments OT Self-Feeding Comments Pt needing assist with set-up and has requested finger foods from the kitchen. Pt state not wanting to have enlarged utensils at this time. OT ADL-Grooming General Evaluation Grooming Ability Minimal Assistance Areas Needing Assistance Retrieving/Set-up of Grooming Items,Combing/Brushing Hair Comments OT Grooming Comments Pt able to do with set-up , but needing assist to brush her hair due to difficulty to hold the brush in her left hand . OT ADL-Oral Care General Eval Oral Care Ability Standby Assistance Comments Oral Care Comments Able to do while seated in the recliner. OT ADL-Dressing General Eval Lower Body Dressing Ability Total Assistance Areas Needing Assistance Underpants/Brief,Socks Comments OT Dressing Comments Pt needing total assist at this time due to her NWB for RUE and left hand in the thumb spica. OT ADL-Toileting General Evaluation Toileting Ability Total Assistance Comments OT Toileting Comments Purewick in place at this time . OT ADL-Bathing Comments OT Bathing Comments Sponge bath more appropriate this time due to decreased mobility. M5 OT- IP IADL's Start: 12/06/23 13:44 Freq: Status: Active Protocol: Document 12/06/23 10:27 [facility] (Rec: 12/06/23 14:11 [facility] [id number]) OT-Instrumental Activities of Daily Living Deficits IADL Deficits Identified Deficits Home Safety Awareness Awareness of Need for Assistance at Home Good Awareness Ability to Problem Solve Emergency Able to Problem Solve Situations Medication Management Medication Management Comments Pt will need assist due to decreased use of her hands at this time. Money Management Money Management Caregiver Provides Assistance Meal Preparation Meal Preparation Caregiver Provides Assist Tie In Machine Operator Tie In Machine Operator Caregiver Provides Assist M6 OT- IP Functional Cognition Start: 12/06/23 13:44 Freq: Status: Active Protocol: Document 12/06/23 10:27 [facility] (Rec: 12/06/23 14:11 [facility] [id number]) Cognitive Factors Limiting Selfcare Function Cognitive Ability Level of Alertness Alert Patient Orientation Name,Age,Birthday,Month,Date, Year,Day of Week,Place, Situation Attention Span Ability Capable of Focused Attention, Capable of Sustained Attention Ability to Follow Commands Able to Follow One Step Commands Cognitive Comments Cognitive Assessment Comments Pt able to follow commands for ADL and mobility needs. Pt able to take deep breaths as needed. Pt let therapists know that it makes her more anxious if someone tells her to take deep breaths. OT- Vision and Hearing OT- Hearing Assessment OT- Hearing Assessment WFL OT- Vision Assessment Vision History Cataracts Visual Acuity Glasses All The Time Visual Attentiveness WFL Occular Pursuits WFL M7 OT- IP Mobility and Balance Start: 12/06/23 13:44 Freq: Status: Active Protocol: Document 12/06/23 10:27 [facility] (Rec: 12/06/23 14:11 [facility] [id number]) OT- Bed Mobility Assessment Supine to Sit Supine to Sit Assist Maximum Assistance,2 Person Assistance Scooting Scooting to Edge of Bed Maximum Assistance,1 Person Assistance OT-Transfer Assessment Sit to and From Stand Sit to and from Stand Maximum Assistance,2 Person Assistance Transfers Transfer Ability Maximum Assistance,2 Person Assistance Technique Transfer Destination Bed,Bedside Commode Transfer Technique Stand Step Pivot Devices Transfer Assistive Devices Gait Belt,Blue Walker Comments Mobility Comments MAXA X2 with HOB up and use of green pad to assist pt to get to the edge of the bed. MAX AX 2 to stand to the blue-walker and educated to use the ulnar side of her left hand to push on the blue-walker . In addition OT able to give support at her left forearm for stability. MAX AX 2 to guide pt to the recliner. Pt at this time is very weak and will benefit from use of wandy lift for nursing staff. OT- Balance Assessment Sitting Balance and Reactions Static Sitting Balance Ability Fair Dynamic Sitting Balance Ability Fair Standing Balance and Reactions Static Standing Balance Ability Poor Dynamic Standing Balance Ability Poor M8 OT- IP Objective Assessments Start: 12/06/23 13:44 Freq: Status: Active Protocol: Document 12/06/23 10:27 [facility] (Rec: 12/06/23 14:11 [facility] [id number]) OT Gross Range of Motion Upper Extremity Range of Motion Assessment Bilaterally Impaired OT Strength Upper Extremity Strength Assessment Bilaterally Impaired M9 OT- IP Assessment and Plan Start: 12/06/23 13:44 Freq: Status: Active Protocol: Document 12/06/23 10:27 [facility] (Rec: 12/06/23 14:11 [facility] [id number]) OT Summary Assessment and Plan Potential Rehabilitation Potential Good Analytic Complexity at Evaluation Moderate Summary OT Impairments Pain,Strength,Balance, Functional Mobility,Self- Feeding,Grooming,Dressing, Toileting,Bathing,Toilet Transfers,Shower Transfers, Activity Tolerance Progress Towards Goals Slow Progress due to Pain,Slow Progress due to Medical Issues,Slow Progress due to Activity Tolerance Assessment Summary Pt MOD complexity and main barriers are step at home and now needing use of wandy lift for nursing staff for mobility needs, and extensive assist for ADL needs. Pt will greatly benefit from skilled rehab to work on her core strengthening to improve her mobility needs. Pt looking to go to skilled rehab when medically stable. Goals Self-Feeding Goal Standby Assistance Grooming Goal Standby Assistance Dressing Goal Moderate Assistance Toileting Goal Moderate Assistance Bathing Goal Moderate Assistance Toilet Transfer Goal Standby Assistance Shower Transfer Goal Standby Assistance Days to Meet Goals 30 Frequency of Treatment Frequency Of Treatment Once a Day Treatment Plan OT Treatment Plan ADL Training,Functional Mobility,Patient/Family Education,Discharge Planning Other Treatment Recommendations and Next Transfer to [facility] with MAX AX 2 Treatment Focus with hemiwalker. Discharge Recommendations OT Discharge Recommendations SNF Rehab Transportation Needs at Discharge Stretcher/Ambulance
--- NOTE | 2023-12-06 13:48 | CM.DANOTE ---
Initial DCP Assessment Visit Reviewed EMR and team rounds for pt's medical status and initial anticipated d/c needs. Met with pt/spouse at bedside and introduced self/role. Discussed pt's admission status as OBS, and need to initiate any d/c placement or home planning disposition needs now, in order to ensure that her preferences have time for authorization and coordination. Pt found to be alert/oriented, however easily escalates in anxiety with decision making needs and the thought of leaving the hospital. Pt was assessed by PT/OT today for initial d/c recommendations, and are recommending SNF rehab due to pt's fractures making it too difficult for pt to bear weight/use her walker. She is requiring mechanical lift for care needs at this time. Payor: Alejandro Schwartz PCP: Elsa Munson Pt is a 63 year-old F who presented to the ED via EMS with worsening generalized pain, weakness, and had a second GLF this week. Pt was seen in the ED on 12/01 following a GLF and was found to have a R-shoulder fracture, and L-thumb fracture. She was also found to be hyertensive, hyperkalemic, tachycardic, and wheezing upon arrival. IV fluids and ABO's were started in the ED, and she was admitted for further eval and tx. She ambulates with a walker at baseline, lives with spouse modified-independently in their own home in [place]. This BUSINESS BANKING MANAGER did initiate a referral to [facility], as well as requested an auth from [facility] for SNF rehab, [facility] is pt/family preference. DCP will follow closely and assist with any further evolving d/c needs. Discharge Planning/Care Management CM Discharge Assessment Start: 12/06/23 13:44 Freq: Status: Active Protocol: Document 12/06/23 13:44 [facility] (Rec: 12/06/23 13:48 [facility] [id number]) Discharge Planning Assessment Assigned Power Superintendent SHAMA Pinon Advance Directives? No History Provided By Patient,Significant Other, Medical Record Has Patient been admitted in last 30 No days? Comment Pt presented in the ED on with R-shoulder fracure and L-thumb fracture from GLF. Prior Living Arrangements House Household Members spouse Type of transporation used prior to Relies on Others admit Independent with ADL's Yes: Modified independent. Is patient alert and oriented? Yes Needs Assistance With Home Chores / Shopping DME Already Rented / Owned Wheelchair,Elevated Toilet Seat,FWW / Walker Patient/Family Preference [facility] Facility Comment Pt is non-weight bearing, unable to ambulate due to fractures. Barriers to Discharge Yes Comment Pending [facility] for SNF rehab. Discharge Plan [facility] Community Services Physical Therapy,Occupational Therapy Transportation Arrangement SNF Referrals Initiated [facility] If patient plan is SNF: Has PASSR been No: Will complete once we have completed? obtained an auth from [facility] Inpatient Status as of 12/05/23 Medicare Choice List Provided Yes Medicare choice list reviewed on patient,family electronic tablet with SNF/HH Preference [facility] Has Agency SNF been contacted Yes Whiteboard Updated in Patient Room with Yes name and ext. # of Power Superintendent Review Status In Process Please Provide Date Initial DC 12/06/23 Assessment Was Performed
--- NOTE | 2023-12-06 14:41 | PM.PN.1 ---
Subjective Subjective Interval history: PT/OT rec SNF as patient is 2 person assist. She has no complaints today. at bedside and he was updated. Exam Vital Signs (past 8 hours): - 12/06/23 08:54 12/06/23 09:30 12/06/23 12:00 Temperature 97.1 F L Pulse Rate 104 H 84 112 H Respiratory Rate 18 18 Blood Pressure 134/84 143/101 H Pulse Oximetry 92 98 Oxygen Flow Rate 0 0 Oxygen Delivery Method Room Air Oxygen Flow Rate 0 Narrative Exam Narrative: GEN: no acute distress, obese HEENT: moist mucous membranes, PERRL NECK: trachea midline, no JVD CV: regular rate and rhythm, no murmurs PULM: clear bilaterally ABD: soft, nontender, nondistended, no organomegaly EXT: warm and well perfused with no edema, R shoulder in sling NEURO: awake, alert, oriented, R-sided deficits, speech impediment from prior strokes Objective Labs 12/06/23 06:35 12/06/23 06:35 Labs: Laboratory Results - last 24 hr 12/05/23 12/06/23 07:35 06:35 WBC 8.3 RBC 4.03 Hgb 11.4 L Hct 34.3 L MCV 84.9 MCH 28.3 MCHC 33.3 RDW 16.3 H Plt Count 246 Neut % (Auto) 74.0 Lymph % (Auto) 14.4 L [place] % (Auto) 8.1 Eos % (Auto) 2.3 Baso % (Auto) 1.2 Neut # (Auto) 6200 Lymph # (Auto) 1200 [place] # (Auto) 700 Eos # (Auto) 200 Baso # (Auto) 100 Sodium 136 L Potassium 4.7 Chloride 102 Carbon Dioxide 28 BUN 30 H Creatinine 0.87 Estimated GFR > 60 BUN/Creatinine Ratio 34.5 H Glucose 139 H Hemoglobin A1c 7.7 H Calcium 9.5 Magnesium 1.5 L PFSH Social History household members: spouse Smoking Status: Former smoker Assessment & Plan Assessment & Plan narrative: # INGRIS with hyperkalemia, resolved -likely prerenal as improving with IVF -continue IVF -hold home valsartan -low K diet -CR and K now normal # mildly elevated troponin -likely demand ischemia -no chest pain # generalized weakness and falls -likely due to prior strokes and dehydration -PT/OT eval rec SNF -NWB on R arm per ortho, pendulum ok # UTI -UA with pyuria -rocephin x3 days # hypertension -can resume valsartan # type 2 diabetes -continue lantus and SSI # hyperlipidemia -continue statin # GERD -continue PPI Code status is full code. DVT prophylaxis with heparin. Proxy is . I have reviewed home meds and used all available resources to reconcile the home meds. Dispo: HEALTH POLICY ANALYST arranging SNF.
[2023-12-06] MEDS: VALSARTAN 80 MG TABLET 320 MG PO (15:01)
[2023-12-06] MEDS: HYDROMORPHONE 0.5 MG INJ IV (16:50)
[2023-12-06] MEDS: OXYCODONE IR 5 MG TABLET PO (18:15)
[2023-12-06] MEDS: TRAZODONE 50 MG TABLET 100 MG PO (21:49)
[2023-12-06] MEDS: GABAPENTIN 100 MG CAPSULE PO (21:49)
[2023-12-06] MEDS: SENNOSIDES 8.6 MG TABLET PO (21:49)
[2023-12-07] MEDS: OXYCODONE IR 10 MG TABLET PO ×2 (03:59→12:00)
[2023-12-07] MEDS: ACETAMINOPHEN 325 MG TABLET 650 MG PO (03:59)
[2023-12-07 04:00] VITALS: BP 133/80; PULSE 62; RESP 16; TEMP 37.1; O2SAT 96
[2023-12-07 07:15] LABS: Add Manual Diff / Slide Review NO; Basophils Absolute Auto 100 /uL (0-100); Eosinophils Absolute Auto 200 /uL (0-450); Eosinophils Percent Auto 2.7 % (2-4); Hematocrit 33.2 % (36-46); Hemoglobin 11.1 g/dL (12.0-16.0); Lymphocytes Absolute Auto 1300 /uL (1100-4500); Lymphocytes Percent Auto 17.9 % (25-40); Mean Corpuscular HGB Conc 33.6 % (30-36); Mean Corpuscular Hemoglobin 28.5 PG (26-34); Mean Corpuscular Volume 84.8 fL (80-100); Monocytes Absolute Auto 500 /uL (0-900); Monocytes Percent Auto 7.2 % (3-14); Neutrophils Absolute Auto 5100 /uL (1500-7000); Neutrophils Percent Auto 71.2 % (50-75); Platelet Count 258 X10^3/uL (150-400); Red Blood Cell Count 3.91 X10^6/uL (4.0-5.2); White Blood Cell Count 7.1 X10^3/uL (4.5-11.0)
[2023-12-07 07:28] LABS: BUN Creatinine Ratio 30.4 (6-22); Blood Urea Nitrogen 28 mg/dL (7-17); Calcium 9.6 mg/dL (8.4-10.2); Carbon Dioxide 30 mmol/L (22-32); Chloride 99 mmol/L (98-107); Estimated Glomerular Filt Rate > 60 mL/min (>60); Glucose 155 mg/dL (80-110); HEMOLYSIS < 15 (0-50); Potassium 4.9 mmol/L (3.4-5.1); Sodium 135 mmol/L (137-145)
[2023-12-07 07:30] LABS: Magnesium 1.8 mg/dL (1.6-2.3)
[2023-12-07 08:51] VITALS: BP 147/73; PULSE 106; RESP 18; TEMP 35.9; O2SAT 96
[2023-12-07 08:56] VITALS: BP 147/73
[2023-12-07] MEDS: ATORVASTATIN 20 MG TABLET 80 MG PO (08:56)
[2023-12-07] MEDS: VALSARTAN 80 MG TABLET 320 MG PO (08:56)
[2023-12-07] MEDS: ISOSORBIDE MONONITRATE ER 30 MG TABLET PO (08:56)
[2023-12-07] MEDS: FENOFIBRATE, MICRONIZED 67 MG CAPSULE PO (08:56)
[2023-12-07] MEDS: METOPROLOL ER 25 MG TABLET PO (08:56)
[2023-12-07] MEDS: PANTOPRAZOLE DR 40 MG TABLET PO (08:56)
[2023-12-07] MEDS: INSULIN GLARGINE 100 UNIT/ML 3ML PEN 47 UNIT SUBCUT (08:57)
[2023-12-07] MEDS: CLOPIDOGREL 75 MG TABLET PO (08:57)
[2023-12-07] MEDS: INSULIN LISPRO 100 UNIT/ML 3ML VIAL SUBCUT ×2 (08:58→12:01)
--- NOTE | 2023-12-07 10:45 | CM.DPC ---
Addendum entered and electronically signed by SHAMA Pineda 12/07/23 12:48: [facility] accepts and will f/u with pt post-d/c. Original Note: DCP Cont. Reviewed EMR and team rounds for status updates. Pt has changed her mind, now does not want SNF rehab, but wants to d/c home with her 's assistance and [facility]. This FOREST MANAGEMENT PROFESSOR sent the referral and clinicals for review. Pt will d/c home today once her spouse is available to transport her home. Will monitor status of HH acceptance, and confirm w/pt before she leaves.
--- NOTE | 2023-12-07 10:55 | PT.IPTN ---
Current Diagnoses Acute kidney failure, unspecified (12/05/23) Physical Therapy Treatment Note M2 PT-IP Current Condition Start: 12/06/23 11:18 Freq: NEEDED Status: Active Protocol: Document 12/06/23 09:55 AB (Rec: 12/06/23 11:48 AB [id number]) Physical Therapy Current Condition Current Condition Evaluation Date 12/06/23 Treatment Diagnosis UTI; s/p fall; R shld fx; L 1st prox phalangeal fx; difficulty in walking Onset Date 12/05/23 M3 PT-IP Subjective Start: 12/06/23 11:18 Freq: NEEDED Status: Active Protocol: Document 12/07/23 11:56 TS (Rec: 12/07/23 12:12 TS [id number]) Subjective Physical Therapy Visit Type Type Treatment Note Visit Start Time 10:55 Visit Stop Time 11:20 Total Visit Minutes 25 Notes Split treatment with OT. Number of THERAPIST SPEECH Visits 1 Physical Therapy Visit Comments Patient Comments Pt found resting in bed, agreeable to PT. Therapy Pain Assessment Pain When Pain Assessed During Mobility Pain Present Pain Present Pain Reported M4 PT-IP Mobility and Gait Start: 12/06/23 11:18 Freq: NEEDED Status: Active Protocol: Document 12/07/23 11:56 TS (Rec: 12/07/23 12:12 TS [id number]) PT-Bed Mobility Assessment Supine to Sit Supine to Sit Minimal Assistance,1 Person Assistance Scooting Scooting to Edge of Bed Minimal Assistance PT-Transfer Assessment Sit to and From Stand Sit to and from Stand Moderate Assistance,Maximum Assistance,1 Person Assistance Equipment Transfer Assistive Device None,Gait Belt Orthotic/Prosthetic Devices or Brace: No Transfers Transfer Destination Bed,Chair Transfer Technique Stand Step Pivot Transfer Ability Level of Assist Minimal Assistance,Moderate Assistance,1 Person Assistance Comments Mobility Comments Supine to sit Guy for uprighting trunk, cues provided for pushing through L elbow to assist in sitting EOB. Pt sat EOB with no UE support, required Guy to scoot TO EOB. Sling strap for R shoulder was replaced around waist for proper fit and education was provided to pt and spouse of donning and doffing sling. Sit to stand from bed ModA with LUE pushing from therapists forearm. She performed stand step pivot transfer to chair Guy for balance. Pt sat in chair, breathes heavily, Spo2 96%. Sit stand from chair MaxA with no AD for stand pivot transfer to bed. Spouse performed stand step pivot with pt from bed back to chair . Spouse and pt were educated on proper sequencing of pivot transfers. Pt was left in chair, all needs met. Gait Assessment Gait Gait Assistance Required: Minimum Assistance,Moderate Assistance,1 Person Assist Distance (Feet) 6 Able to Maintain Weight Bearing Status Yes During Gait Assistive Devices Assistive Device None,Gait Belt Orthotic/Prosthetic Devices or Brace: Yes Gait Deviations General Gait Pattern Decreased Stride Length, Decreased Feet Clearance, Lateral Trunk Lean,Step-to Gait,Wide Based Gait Factors Limiting Gait Function Factors Limiting Gait Function Decreased Activity Tolerance, Decreased Strength,Limited Range of Motion,Pain,Poor Balance,Poor Safety Awareness Comments Gait Comments See mobility comments PT-Balance Assessment Sitting Balance and Reactions Static Sitting Balance Ability Fair Dynamic Sitting Balance Ability Fair Standing Balance and Reactions Static Standing Balance Ability Fair Dynamic Standing Balance Ability Fair Device Used No AD M5 PT-IP Objective Assessments Start: 12/06/23 11:18 Freq: NEEDED Status: Active Protocol: Document 12/06/23 09:55 AB (Rec: 12/06/23 11:48 AB [id number]) Orientation Orientation/Cognition Level of Alertness Alert Orientation Name,Place,Situation Language Function Ability Hard of Hearing Safety Awareness Decreased Safety Awareness Memory Description No Deficits Noted Gross Range of Motion Lower Extremity ROM Assessment Within Functional Limits Impairments increase LLE extensor tightness Strength Lower Extremity Strength Assessment Bilaterally Impaired Hip 3+/5 Knee 4-/5 M6 PT-IP Treatment Start: 12/06/23 11:18 Freq: NEEDED Status: Active Protocol: Document 12/07/23 11:56 TS (Rec: 12/07/23 12:12 [id number]) Physical Therapy Treatment Education Education Provided Precautions,Weight Bearing Status,Safety M7 PT-IP Assessment and Plan Start: 12/06/23 11:18 Freq: NEEDED Status: Active Protocol: Document 12/07/23 11:56 TS (Rec: 12/07/23 12:12 TS [id number]) PT Summary Assessment and Plan Potential Rehabilitation Potential Fair Summary Impairments Pain,ROM,Strength,Balance, Coordination,Sensation,Tone, Cognition,Bed Mobility, Transfers,Gait,Activity Tolerance Progress Towards Goals Slow Progress due to Pain,Slow Progress due to Medical Issues,Slow Progress due to Activity Tolerance Assessment Summary Mary made some progress with her mobility but remains limited by fx in RUE and fx in L thumb. She required decreased assistance for bed mobility to Guy x1 PA for sitting up to EOB. She performed sit to stand x4, x2 from higher surface of bed and x1 from lower surface of chair with no AD. She progressed gait with stand step pivot transfer to ~6' with no AD. Spousee and pt were instructed in and performed transfers and donning of gait belt. PT at this time is recommending SNF vs Home. Pt is unsteady with gait and ddecreased activity tolerance, she could benefit from daily PT to progress Ind before returning home. Goals Bed Mobility Goal Minimal Assistance Transfer Goal Moderate Assistance Gait Goal Moderate Assistance,Blue Walker Gait Distance 25 Other Goals improve bed mobility, transfers, ambulation using LRAD ~ 100 ft SBA Days to Meet Goals 10 Frequency of Treatment Frequency Of Treatment Once a Day Treatment Plan Physical Therapy Treatment Plan Bed Mobility Training,Transfer Training,Gait Training, Therapeutic Exercise,Balance Retraining,Discharge Planning, Hot or Cold Pack,Neuromuscular Re-ed,Coordination Retraining ,Manual Therapy Precautions Shoulder Precautions Sling,Pendulums Weight Bearing Status Allowed Weight Bearing Amount (enter % NWB RUE, NWB on base of left or #) (%) thumb. Recommendations To Nursing Amount of Assist Needed 2 Person Assist Discharge Recommendations PT Discharge Recommendations Home Health,Home vs SNF Transportation Needs at Discharge Private Vehicle,Wheelchair/ Cabulance
--- NOTE | 2023-12-07 11:06 | PM.DS.1 ---
History of Present Illness History of Present Illness Chief complaint: Weakness Narrative: Mary Small is a 63yo F with PMH of multiple strokes on plavix, chronic R-sided deficits and uses walker, DM2 on insulin, hypertension, hyperlipidemia, GERD and insomnia who presents with R shoulder pain, falls and INGRIS. Patient states she became acutely weak at home today and fell. She recently fell at home and broke her R shoulder which has been in a sling. She also broke her L thumb which has been in a spica splint. Was suppoed to see ortho yesterday but she missed the appt. She reports significant pain in her R shoulder with movement. In the ED found to have an INGRIS and hyperkalemia of 6. Given IVF and this improved. She denies CP, NV, abd pain or diarrhea. Discharge Providers Provider Date of admission: 12/05/23 12:24 Discharge Date: 12/07/23 Primary care physician: WIL Abraham Consults: 12/05/23 15:38 Consult to Physical Therapy Evaluate & Treat Comment: Physician Instructions: Evaluate and Treat 12/05/23 16:24 Consult to Occupational Therapy Evaluate & Treat Comment: Physician Instructions: Evaluate and treat 12/07/23 10:44 Consult to Home Health Routine Comment: RN, PT, OT Reason For Exam: Home Health Services Discharge provider: Noe Rodríguez DO Summary Hospital Course Discharge Diagnosis: # INGRIS with hyperkalemia, resolved -likely prerenal as improving with IVF -continue IVF -hold home valsartan -low K diet -CR and K now normal -lowered valsartan dose on discharge to 160 from 320 # mildly elevated troponin -likely demand ischemia -no chest pain # generalized weakness and falls -likely due to prior strokes and dehydration -PT/OT eval rec SNF -NWB on R arm per ortho, pendulum ok # R shoulder and L thumb fractures -curbsided ortho who said nonoperable and they will f/up with her in clinic -continue R arm sling and L spica thumb splint # UTI -UA with pyuria -rocephin x3 days # hypertension -lowered valsartan dose on discharge to 160 from 320 to avoid repeat hypkalemia -put on amlodipine 5mg daily to account for this # type 2 diabetes -continue lantus and SSI # hyperlipidemia -continue statin # GERD -continue PPI Hospital Course: Admitted for falls, INGRIS and K of 5.5. INGRIS and K resolved with IVF and holding valsartan. PT rec SNF but patient refused and preferred home health PT. Her home valsartan dose was lowered and amlodipine started. She will f/up with ortho in clinic about her R shoulder and L thumb fractures. Exam Vital Signs (past 8 hours): - 12/07/23 04:00 12/07/23 08:51 12/07/23 08:56 Temperature 98.7 F 96.6 F L Pulse Rate 62 106 H Respiratory Rate 16 18 Blood Pressure 133/80 147/73 H 147/73 H Pulse Oximetry 96 96 Oxygen Flow Rate 0 0 Oxygen Delivery Method Room Air Oxygen Flow Rate 0 Narrative Exam Narrative: GEN: no acute distress, obese HEENT: moist mucous membranes, PERRL NECK: trachea midline, no JVD CV: regular rate and rhythm, no murmurs PULM: clear bilaterally ABD: soft, nontender, nondistended, no organomegaly EXT: warm and well perfused with no edema, R shoulder in sling NEURO: awake, alert, oriented, R-sided deficits, speech impediment from prior strokes Objective Labs 12/07/23 06:30 12/07/23 06:30 Labs: Laboratory Results - last 24 hr 12/07/23 06:30 WBC 7.1 RBC 3.91 L Hgb 11.1 L Hct 33.2 L MCV 84.8 MCH 28.5 MCHC 33.6 RDW 16.0 H Plt Count 258 Neut % (Auto) 71.2 Lymph % (Auto) 17.9 L Bladen % (Auto) 7.2 Eos % (Auto) 2.7 Baso % (Auto) 1.0 Neut # (Auto) 5100 Lymph # (Auto) 1300 Bladen # (Auto) 500 Eos # (Auto) 200 Baso # (Auto) 100 Sodium 135 L Potassium 4.9 Chloride 99 Carbon Dioxide 30 BUN 28 H Creatinine 0.92 Estimated GFR > 60 BUN/Creatinine Ratio 30.4 H Glucose 155 H Calcium 9.6 Magnesium 1.8 PFSH Social History household members: spouse Smoking Status: Former smoker Discharge Plan Discharge Plan Patient Disposition: Home Provider Discharge Comment: You were admitted due to weakness and high potassium. This improved with IV fluids and holding your valsartan. I've lowered your valsartan dose to half what it was, so please cut your pills in half from now on. This medication can raise potassium. To account for this, I've put you on a different blood pressure medication which doesn't affect your potassium. It's called amlodipine and please take it once per day. Dr. Rodríguez Discharge orders & Medications Prescriptions: New amlodipine 5 mg tablet 5 mg PO DAILY Qty: 30 0RF Continued oxycodone-acetaminophen [Percocet] 5-325 mg tablet 1 tab PO Q4-6H PRN (Reason: pain) Qty: 20 0RF atorvastatin 80 mg tablet 80 mg PO DAILY clopidogrel 75 mg tablet 75 mg PO DAILY fenofibrate 54 mg tablet 54 mg PO DAILY insulin lispro [Humalog KwikPen Insulin] 100 unit/mL insulin pen See Protocol SUBCUT AC Protocol: TITRATE PER PROTOCOL Patient Comments: [NO ORIGINAL SIG] isosorbide mononitrate 30 mg tablet extended release 24 hr 30 mg PO DAILY insulin glargine [Lantus Solostar U-100 Insulin] 100 unit/mL (3 mL) insulin pen 47 unit SUBCUT BID Patient Comments: [NO ORIGINAL SIG] metformin 500 mg tablet extended release 24 hr 500 mg PO BID metoprolol succinate 25 mg tablet extended release 24 hr 25 mg PO DAILY oxycodone-acetaminophen 5-325 mg tablet 1 tab PO 4XD PRN (Reason: Pain (Scale Score 7-10)) pantoprazole 40 mg tablet,delayed release (DR/EC) 40 mg PO DAILY trazodone 100 mg tablet 100 mg PO ONCE PM ergocalciferol (vitamin D2) 1,250 mcg (50,000 unit) capsule 1,250 mcg PO QWEEK gabapentin 100 mg capsule 100 mg PO QPM Changed valsartan 320 mg tablet 160 mg PO DAILY Qty: 30 0RF Follow up/Referrals: Elsa Munson ARNP [Primary Care Provider] - 2 Weeks ( [facility] has been notified of your admission & they will call you with a 2 week post hospital stay appointment ) Visit Report/Discharge Packet Instructions: DI for Urinary Tract Infection (UTI), DI for Hyperkalemia, DI for Prescription Opioid Use, Amlodipine Stand Alone Forms: Patient Portal/API, Stroke Signs & Symptoms Discharge Data Primary Care Provider: Elsa Munson Attending Provider: Noe Rodríguez Admit Date/Time: 12/05/23 12:24
--- NOTE | 2023-12-07 11:50 | OT.IP.TRT ---
Current Diagnoses Acute kidney failure, unspecified (12/05/23) Occupational Therapy Treatment Note M2 OT-IP Current Condition Start: 12/06/23 13:44 Freq: Status: Active Protocol: Document 12/06/23 10:27 [facility] (Rec: 12/06/23 14:11 [facility] [id number]) Occupational Therapy Current Condition Current Condition Evaluation Date 12/06/23 Treatment Diagnosis UTI, Right shoulder fx, Left 1st proximal phalangeal fx Post Operative Precautions Shoulder Precautions Sling Other Precautions RUE in sling, thumb spica for left hand. Weight Bearing Status Allowed Weight Bearing Amount (enter % NWB RUE, NWB on base of left or #) (%) thumb. M3 OT- IP Subjective and Pain Start: 12/06/23 13:44 Freq: Status: Active Protocol: Document 12/07/23 11:52 [facility] (Rec: 12/07/23 12:10 [facility] [id number]) OT- Subjective Occupational Therapy Visit Type Type Treatment Note Visit Start Time 11:20 Visit Stop Time 11:50 Total Visit Minutes 30 Occupational Therapy Visit Comments Patient Comments Pt wanting to go home now. Pt' s present for caregiver training. Patient/Caregiver Goals TO go home. OT Pain Assessment Pain When Pain Assessed During Mobility Pain Present Pain Present Pain Reported Location Right Shoulder Pain Behaviors Facial Grimacing,Guarding M4 OT- IP ADL's Start: 12/06/23 13:44 Freq: Status: Active Protocol: Document 12/07/23 11:52 [facility] (Rec: 12/07/23 12:10 [facility] [id number]) OT [id number] Comments OT Self-Feeding Comments Not at meal time. OT ADL-Grooming Comments OT Grooming Comments not performed OT ADL-Oral Care Comments Oral Care Comments not performed OT ADL-Dressing General Eval Upper Body Dressing Ability Total Assistance Lower Body Dressing Ability Total Assistance Comments OT Dressing Comments Educated pt and her how to alecia/doff the sling and talked about clothing options . Able to issue pt a longer sling strap. OT ADL-Toileting General Evaluation Toileting Ability Total Assistance Comments OT Toileting Comments Purewick in place at this time . OT ADL-Bathing Comments OT Bathing Comments Sponge bath more appropriate this time due to decreased mobility. M5 OT- IP IADL's Start: 12/06/23 13:44 Freq: Status: Active Protocol: Document 12/06/23 10:27 [facility] (Rec: 12/06/23 14:11 [facility] [id number]) OT-Instrumental Activities of Daily Living Deficits IADL Deficits Identified Deficits Home Safety Awareness Awareness of Need for Assistance at Home Good Awareness Ability to Problem Solve Emergency Able to Problem Solve Situations Medication Management Medication Management Comments Pt will need assist due to decreased use of her hands at this time. Money Management Money Management Caregiver Provides Assistance Meal Preparation Meal Preparation Caregiver Provides Assist Waste Handling Technician Waste Handling Technician Caregiver Provides Assist M6 OT- IP Functional Cognition Start: 12/06/23 13:44 Freq: Status: Active Protocol: Document 12/07/23 11:52 [facility] (Rec: 12/07/23 12:10 [facility] [id number]) Cognitive Factors Limiting Selfcare Function Cognitive Comments Cognitive Assessment Comments Pt able to follow commands with increased time. Pt is also able to help instruct her to help remind him how to alecia/doff the gait belt . M7 OT- IP Mobility and Balance Start: 12/06/23 13:44 Freq: Status: Active Protocol: Document 12/07/23 11:52 [facility] (Rec: 12/07/23 12:10 [facility] [id number]) OT- Bed Mobility Assessment Supine to Sit Supine to Sit Assist Moderate Assistance,1 Person Assistance OT-Transfer Assessment Sit to and From Stand Sit to and from Stand Maximum Assistance,1 Person Assistance Transfers Transfer Ability Moderate Assistance,Maximum Assistance,1 Person Assistance Technique Transfer Destination Bed,Chair Transfer Technique Stand Step Pivot Devices Transfer Assistive Devices None,Gait Belt Comments Mobility Comments Pt to be sleeping in her lift chair. MAX AX 1 to stand from the recliner and use of momentum to assist. Once on her feet MODA/MAXA x1 to transfer to the from the bed. At this time emphasized if going home best to do just transfers only or use the WC. Pt's needing visual and physical cues to get closer to the pt when assisting her with the transfer as at this time pt not able to use an device to assist with transfers and has to rely of him for stability. OT- Balance Assessment Sitting Balance and Reactions Static Sitting Balance Ability Good Dynamic Sitting Balance Ability Fair Standing Balance and Reactions Static Standing Balance Ability Poor Dynamic Standing Balance Ability Poor M8 OT- IP Objective Assessments Start: 12/06/23 13:44 Freq: Status: Active Protocol: Document 12/06/23 10:27 [facility] (Rec: 12/06/23 14:11 [facility] [id number]) OT Gross Range of Motion Upper Extremity Range of Motion Assessment Bilaterally Impaired OT Strength Upper Extremity Strength Assessment Bilaterally Impaired M9 OT- IP Assessment and Plan Start: 12/06/23 13:44 Freq: Status: Active Protocol: Document 12/07/23 11:52 [facility] (Rec: 12/07/23 12:10 [facility] [id number]) OT Summary Assessment and Plan Potential Rehabilitation Potential Good Analytic Complexity at Evaluation Moderate Summary OT Impairments Pain,Strength,Balance, Functional Mobility,Self- Feeding,Grooming,Dressing, Toileting,Bathing,Toilet Transfers,Shower Transfers, Activity Tolerance Progress Towards Goals Progressing Toward Goals Assessment Summary Pt able to do caregiver training with her for mobility needs and able to assist her for transfers at this time after doing caregiver training. Spoke of equipment needs and how to best handle her ADl and mobility needs as pt now. Still recommend doing skilled rehab as pt is a high fall risk. Pt wanting to go home and will need 24/7 assist and home health. Goals Self-Feeding Goal Standby Assistance Grooming Goal Standby Assistance Dressing Goal Moderate Assistance Toileting Goal Moderate Assistance Bathing Goal Moderate Assistance Toilet Transfer Goal Standby Assistance Shower Transfer Goal Standby Assistance Days to Meet Goals 29 Frequency of Treatment Frequency Of Treatment Once a Day Treatment Plan OT Treatment Plan ADL Training,Functional Mobility,Patient/Family Education,Discharge Planning Discharge Recommendations OT Discharge Recommendations SNF Rehab Other Discharge Recommendations Pt insistent on going home and therefore will need 24/7 assist and home health. Transportation Needs at Discharge Private Vehicle,Wheelchair/ Cabulance
[2023-12-07] MEDS: cefTRIAXone 1,000 MG in SODIUM CHLORIDE 0.9% 100 ML 200 MG IV (11:58)
--- NOTE | 2023-12-07 12:46 | PC.NURSE ---
Pt is dressed and ready for discharge home with Spouse. IV has been removed. Went over d/c instructions with Pt and Spouse. Discussed d/c meds, time of last dose, reviewed stroke education, Pharmacist reviewed new med with Pt and Spouse. Encouraged fluid intake to prevent constipation or dehydration, and follow up appointment. Pt and Spouse denied further questions and will be taken out via w/c by [employer] to POV with Spouse and all belongings.
--- NOTE | 2023-12-07 13:17 | PC.NURSE ---
Pt out via w/c
== END 2023-12-07 13:17 | disposition home or self-care (01) ==
LOC: ED 12:16 → AC 12:29
PROVIDERS: Admitting Provider Student in an Organized Health Care Education/Training Program; Emergency Provider Emergency Medicine; PCP Nurse Practitioner Family; Referring Provider Emergency Medicine; Visit Provider Student in an Organized Health Care Education/Training Program
DX: R53.1 Weakness (principal); N17.9 Acute kidney failure, unspecified; N39.0 Urinary tract infection, site not specified; E87.5 Hyperkalemia; R79.89 Other specified abnormal findings of blood chemistry; I69.351 Hemiplegia and hemiparesis following cerebral infarction affecting right dominant side; I10 Essential (primary) hypertension; E11.9 Type 2 diabetes mellitus without complications; Z79.4 Long term (current) use of insulin; E78.5 Hyperlipidemia, unspecified; K21.9 Gastro-esophageal reflux disease without esophagitis; Z91.81 History of falling
CPT/HCPCS: 0241U; 36415; 70450; 71045; 72125; 80048; 80053; 81001; 82550; 82962; 83036; 83605; 83735; 84484; 85025; 85379; 87077; 87086; 87186; 93005; 93010; 94640; 96361; 96365; 96366; 96372; 96375; 96376; 97163; 97166; 97530; 97535; 99285; G0378; J0612; J0696; J1170; J1815; J3475

== ENCOUNTER → 2024-07-16 13:33 | Outpatient (CLI) | payer OTHER, MEDICARE, SELFPAY ==
[2023-12-05 13:30] VITALS: BMI 37.4
--- NOTE | 2024-08-19 23:40 | DI.NM.S_ITS ---
DATE OF SERVICE: 07/16/2024 NUCLEAR CARDIOLOGY MYOCARDIAL PERFUSION STUDY PROCEDURE: Rest-only myocardial perfusion imaging with gating to assess ejection fraction and regional wall motion. ORDERING PROVIDER: Ingris Khanna M.D. INDICATIONS: The patient is a morbidly obese 63-year-old female with coronary artery calcification and possible diastolic heart failure. She was admitted due to her symptoms and a resting scan was obtained in anticipation of obtaining stress perfusion imaging, but she was transferred for cardiac catheterization prior to completion of the stress portion of the study. Therefore, only resting images are available for review. FINDINGS: RAW DATA: There is fair myocardial tracer uptake with obvious significant breast shadows noted that clearly produce some attenuation artifact. GATED STUDY: Quantitated gated SPECT: Post-stress, her resting ejection fraction appears to be at the lower limits of normal with an estimated ejection fraction of 54%, although visually appears to be possibly slightly lower than this. There are no focal wall motion abnormalities with mild global hypokinesis. Resting end-diastolic volume is normal at 88 mL. MYOCARDIAL PERFUSION SCAN: Resting images show a fairly uniform pattern of tracer activity although with mildly reduced tracer activity in the mid anterior wall, sparing the apex, in a pattern consistent with breast attenuation artifact but no concerning perfuision defects. There are no stress images to assess for any ischemia. IMPRESSION: 1. Rest-only perfusion imaging as the patient was transferred for cardiac catheterization prior to completion of the stress portion of the study. 2. Mild mid anterior perfusion defect that most likely reflects breast attenuation artifact but no concerning perfusion defects. There are no stress images to assess for ischemia or previous infarction. 3. Low-normal left ventricular systolic function with an ejection fraction estimated at 54%, although visually appears to be slighlty lower than this with mild global hypokinesis. Left ventricular volumes appear normal. GeovannyMary - RS/fn/[place] doc#: [id number]/job#: [id number] dd: 08/19/2024 17:38:00 dt: 08/19/2024 23:29:00 DICTATING MD/COPIES TO: Kelton Alex MD; Ingris Khanna M.D. COPIES MNE: VISHNU;
== END ==
LOC: NUCM 13:37
PROVIDERS: PCP Nurse Practitioner Family; Referring Provider Internal Medicine Cardiovascular Disease; Visit Provider Internal Medicine Cardiovascular Disease
DX: I25.10 Atherosclerotic heart disease of native coronary artery without angina pectoris (principal); E66.01 Morbid (severe) obesity due to excess calories; Z68.37 Body mass index [BMI] 37.0-37.9, adult
CPT/HCPCS: 78451; A9502

== ENCOUNTER → 2024-07-17 13:28 | Outpatient (CLI) | payer OTHER, MEDICARE, SELFPAY ==
[2023-12-05 13:30] VITALS: BMI 37.4
--- NOTE | 2024-07-17 13:30 | DI.ECHO.S_ITS ---
[facility] : : [address] : [place] : : [id number] : : Phone: [phone] Echocardiogram Report + + :Name: KEON SOLANO Study Date: 07/17/2024 Height: 67 in : :Hospital ReadingLocation: Weight: 250 lb : : Gender: Female BSA: 2.2 m2 : :: 1960 Age: 63 yrs BP: 133/76 mmHg: :Reason For Study: CHRONIC HEART FAILURE : :Ordering Physician: LAURA, : :INGRIS Nath Performed By: Aure Chavarria : :Referring: INGRIS KHANNA : + + Interpretation Summary The study quality was technically difficult. The ejection fraction is estimated to be 50-55%. Diastolic function could not be accurately assessed due to unobtainable data. The right ventricle is normal in size and function. Mitral annular calcification with extension onto the posterior leaflet without significant mitral stenosis. Pulmonary artery pressures cannot be estimated because of the lack of a measurable TR jet velocity. Procedure: A two-dimensional transthoracic echocardiogram with color flow and Doppler was performed. The study quality was technically difficult. There is no prior echocardiogram noted for this patient. The patient had a bundle branch block rhythm during the exam. The heart rate ranged between 85-100 bpm during the study. Left Ventricle: The left ventricle is normal in size. Left ventricular wall thickness is mildly increased. The ejection fraction is estimated to be 50- 55%. Septal motion is consistent with conduction abnormality. Diastolic function could not be accurately assessed due to unobtainable data. Right Ventricle: The right ventricle is normal in size and function. Atria: The left atrial size is normal. Right atrial size is normal. There is no Doppler evidence for an interatrial shunt. Mitral Valve: There is moderate mitral annular calcification. The mitral valve leaflets appear mildly thickened, but open well. The mitral valve mean gradient is 4.4 mmHg. No significant mitral valve stenosis. There is trace mitral regurgitation. Aortic Valve: The aortic valve is slightly calcified. There is mild aortic valve sclerosis. There is no aortic valve stenosis. No aortic regurgitation is present. Tricuspid Valve: The tricuspid valve is normal in structure and function. No tricuspid regurgitation. Pulmonary artery pressures cannot be estimated because of the lack of a measurable TR jet velocity. Pulmonic Valve: The pulmonic valve leaflets are thin and pliable; valve motion is normal. There is no pulmonic valvular regurgitation. Great Vessels: The aortic root is normal size. The dimensions of the ascending aorta are normal. The inferior vena cava was not well visualized. Pericardium/ Pleura There is no pericardial effusion. There is no pleural effusion. MMode/2D Measurements & Calculations LVIDd: 5.4 cm LVOT diam: 2.0 cm LVIDs: 3.7 cm Ao root diam: 2.8 cm FS: 32.1 % asc Aorta Diam: 3.5 cm IVSd: 1.3 cm Ao Arch Diam (Prox Trans): 2.8 cm LVPWd: 0.96 cm LV wolfe. diameter/BSA (cm/m^2): 2.4 LV sys. diameter/BSA (cm/m^2): 1.6 LA A2 area: 19.7 cm2 RA long axis: 5.3 cm LA A4 area: 17.3 cm2 RA area: 17.7 cm2 LA length (vol): 5.5 cm RA vol: 50.4 ml LA vol: 52.9 ml RA : 22.7 ml/m2 LA vol index: 23.8 ml/m2 RVD1 (basal): 3.7 cm TAPSE: 1.8 cm Doppler Measurements & Calculations Ao V2 max: 175.3 cm/sec LVOT Max Chandra: 106.5 cm/sec Ao V2 mean: 127.9 cm/sec LV V1 max P.5 mmHg Ao max P.3 mmHg LV V1 VTI: 18.8 cm Ao mean P.2 mmHg MEMO(I,D): 1.8 cm2 Ao V2 VTI: 33.0 cm MEMO(V,D): 1.9 cm2 sev ratio: 0.57 MEMO indexed to BSA (cm^2/m^2): 0.82 MV E max chandra: 105.5 cm/sec PA V2 max: 135.2 cm/sec MV A max chandra: 146.1 cm/sec PA V2 mean: 91.0 cm/sec MV E/A: 0.72 PA mean P.8 mmHg Med Peak E' Chandra: 5.7 cm/sec PA pr(Accel): 44.7 mmHg E/E' med: 18.6 Lat Peak E' Chandra: 7.5 cm/sec E/E' lat: 14.1 E/e' average: 16.3 MV dec time: 0.25 sec MVA(VTI): 1.8 cm2 MV V2 mean: 95.8 cm/sec SV(LVOT): 60.3 ml MV mean P.4 mmHg MV V2 VTI: 33.4 cm Reading Physician:02:04 PM
== END ==
PROVIDERS: PCP Family Medicine; Referring Provider Internal Medicine Cardiovascular Disease; Visit Provider Internal Medicine Cardiovascular Disease
DX: I50.32 Chronic diastolic (congestive) heart failure (principal); I51.5 Myocardial degeneration
CPT/HCPCS: 93306

== ENCOUNTER 2024-08-08 11:55 | Inpatient (IN) | payer OTHER, MEDICARE, SELFPAY ==
[2023-12-05 13:30] VITALS: BMI 37.4
[2024-08-08] VITALS (99 sets, daily range): BP systolic 84–182; BP diastolic 50–83; PULSE 103–145; RESP 0–38; TEMP 32–36.9; O2SAT 79–100; BMI 39.5
--- NOTE | 2024-08-08 12:03 | DI.RAD.S_ITS ---
PROCEDURE: XR CHEST 1V INDICATIONS: short of breath TECHNIQUE: One view of the chest was acquired. COMPARISON: [facility], CR, XR CHEST 1V, 12/05/2023, 8:00. FINDINGS: Moderately enlarged cardiopericardial silhouette mildly increased. Increased prominent geovanni, pulmonary vascular congestion with interstitial edema. New small bilateral pleural effusions or pleural thickening. New moderate diffuse peribronchial thickening with diffuse alveolar opacities suspicious for multifocal pneumonia, bronchopneumonia, viral infection or other process. New mild bibasilar subsegmental atelectasis some of which may be related expiratory result. Moderate calcifications of the aortic arch unchanged. Moderate degenerate changes of the thoracic spine unchanged. IMPRESSION: Moderately enlarged cardiopericardial silhouette increased. Increased pulmonary vascular congestion with interstitial edema. New small bilateral pleural effusions. New moderate diffuse peribronchial thickening with diffuse alveolar opacities suspicious for multifocal pneumonia, bronchopneumonia, viral infection or other process. New mild bibasilar subsegmental atelectasis. Continued follow-up is needed. If symptoms persist or worsen, CT chest could be performed Dictated by: Edward Colunga M.D. on 08/08/2024 at 12:23 Approved by: Edward Colunga M.D. on 08/08/2024 at 12:37
[2024-08-08] MEDS: NITROGLYCERIN 0.4 MG SL TAB SL ×2 (12:11→12:36)
[2024-08-08] MEDS: FUROSEMIDE 40 MG/4 ML VIAL IV ×2 (12:12→15:26)
--- NOTE | 2024-08-08 12:17 | EKG_ITS ---
[address] [address] Test Date: 2024-08-08 Pat Name: Mary Small Department: [facility] Room: Gender: Female Battery Checker: LIZBETH : 1960 Requested By: Order Number: [id number] Reading MD: Seamus Valdez Measurements Intervals Ney Rate: 137 P: ID: [id number] QRS: 13 QRSD: 150 T: 150 QT: 348 QTc: 525 Interpretive Statements Sinus tachycardia Left bundle branch block Electronically Signed On 08-09-2024 17:56:23 PDT by Seamus Valdez
[2024-08-08 12:26] LABS: Add Manual Diff / Slide Review NO; Basophils Absolute Auto 100 /uL (0-100); Basophils Percent Auto 0.7 % (0-2); Eosinophils Absolute Auto 100 /uL (0-450); Eosinophils Percent Auto 0.4 % (2-4); Hematocrit 24.3 % (36-46); Hemoglobin 7.1 g/dL (12.0-16.0); Lymphocytes Absolute Auto 2100 /uL (1100-4500); Lymphocytes Percent Auto 11.8 % (25-40); Mean Corpuscular HGB Conc 29.2 % (30-36); Mean Corpuscular Hemoglobin 21.6 PG (26-34); Monocytes Absolute Auto 700 /uL (0-900); Monocytes Percent Auto 3.8 % (3-14); Neutrophils Absolute Auto 15200 /uL (1500-7000); Neutrophils Percent Auto 83.3 % (50-75); Platelet Count 580 X10^3/uL (150-400); Red Blood Cell Count 3.29 X10^6/uL (4.0-5.2); White Blood Cell Count 18.2 X10^3/uL (4.5-11.0)
--- NOTE | 2024-08-08 12:28 | ED_ITS ---
HPI - SOB/Dyspnea General Chief Complaint: Shortness of Breath/Dyspnea Stated Complaint: SOB Time Seen by Provider: 08/08/24 12:03 Source: patient and EMS Mode of arrival: EMS Limitations: no limitations History of Present Illness HPI Narrative: Patient is a 63 female history of multiple strokes on Plavix chronic right-sided weakness uses a walker diabetes on insulin hypertension hyperlipidemia no known history of congestive heart failure but takes Lasix presenting today with increasing shortness of breath. She reports it has been ongoing for the last 24 hours feeling some abdominal pain and swelling. EMS reports that she was hypoxic upon arrival actually started giving her DuoNeb. She is this has she required 6 L nasal cannula she improved somewhat with a DuoNeb however right before arrival she is quickly decompensated. She denies any sort of chest pain he is unable to have a conversation continues to be hypoxic and appears in moderate to severe respiratory distress. Upon further questioning after respiratory distress has improved with BiPAP she reports some right upper quadrant pain and abdominal pain that started 1st and then she suddenly got very short of breath. She also reports that she was having some black tarry stools a couple of days ago but that has since resolved Related Data Home Medications Medication Instructions Recorded Confirmed atorvastatin 80 mg tablet 80 mg PO DAILY 12/05/23 08/08/24 ergocalciferol (vitamin D2) 1,250 1,250 mcg PO QWEEK 12/05/23 12/05/23 mcg (50,000 unit) capsule gabapentin 100 mg capsule 100 mg PO QPM 12/05/23 08/08/24 insulin glargine 100 unit/mL (3 47 unit SUBCUT BID 12/05/23 12/05/23 mL) subcutaneous pen (Lantus Solostar U-100 Insulin) insulin lispro 100 unit/mL See Protocol SUBCUT AC 12/05/23 12/05/23 subcutaneous pen (Humalog KwikPen (U-100) Insulin) isosorbide mononitrate 30 mg 30 mg PO DAILY 12/05/23 08/08/24 tablet,extended release 24 hr metformin 500 mg tablet,extended 500 mg PO BID 12/05/23 08/08/24 release 24 hr metoprolol succinate 25 mg 25 mg PO DAILY 12/05/23 08/08/24 tablet,extended release 24 hr pantoprazole 40 mg tablet,delayed 40 mg PO DAILY 12/05/23 08/08/24 release trazodone 100 mg tablet 100 mg PO ONCE PM 12/05/23 08/08/24 clopidogrel 75 mg tablet 75 mg PO DAILY 08/08/24 08/08/24 fenofibrate 54 mg tablet 54 mg PO DAILY 08/08/24 08/08/24 furosemide 20 mg tablet 20 mg PO BID 08/08/24 08/08/24 potassium chloride 10 mEq 10 meq PO DAILY 08/08/24 08/08/24 tablet,extended release(part/cryst) spironolactone 25 mg tablet 25 mg PO BID 08/08/24 08/08/24 Previous Rx's Medication Instructions Recorded amlodipine 5 mg tablet 5 mg PO DAILY #30 tabs 12/07/23 valsartan 320 mg tablet 160 mg (1/2 x 320 mg) PO DAILY #30 12/07/23 tabs Allergies Allergy/AdvReac Type Severity Reaction Status Date / Time neomycin Allergy Mild Redness of Verified 08/08/24 12:05 Skin Sulfa (Sulfonamide Allergy Verified 08/08/24 12:05 Antibiotics) Patient History Social History household members: spouse Smoking Status: Former smoker alcohol intake: current Smoking Status: Former smoker alcohol intake frequency: holidays/special occasions only Substance Use Type: does not use Exam Initial Vital Signs Initial Vital Signs: Vital Signs Pulse Rate 136 H 08/08/24 12:03 Respiratory Rate 36 H 08/08/24 12:03 Pulse Oximetry 84 L 08/08/24 12:03 Oxygen Delivery Method Nasal Cannula 08/08/24 12:03 Oxygen Flow Rate 6 08/08/24 12:03 GENERAL alert 63-year-old female with moderate to severe respiratory distress HEENT: Head atraumatic,EOMI, pupils reactive, face symmetric, moist mucous membranes CARDIOVASCULAR: Regular rate and rhythm without murmurs, rubs or gallops. RESPIRATORY: Coarse breath sounds tachypneic conversational dyspnea ABDOMEN: Soft, nontender. Normoactive bowel sounds all 4 quadrants. No guarding or rebound. RECTAL: No stool or blood EXTREMITIES: Normal range of motion, no clubbing or edema. Neurovascularly intact NEUROLOGICAL: Alert moving extremities SKIN: Warm, dry, no laceration, no petechiae, no rashes or lesions. Course Orders Ordered: ED Orders 08/08/24 12:03 XR chest 1V Stat EKG-12 Lead Stat 08/08/24 12:10 Complete Blood Count AUTO DIFF Stat Comprehensive Metabolic Panel Stat Lactate (Lactic Acid) Stat Lipase Stat NT-proBNP (BNP-Adult 18+) Stat PTT Partial Thromboplastin Robert Stat Procalcitonin Stat Prothrombin Time INR Stat Troponin & CK Cardiac Panel Stat 08/08/24 12:11 Blood Culture Stat 08/08/24 12:31 Urinalysis and Microscopic Stat Urine Culture Stat 08/08/24 12:42 Respiratory Panel (Film Array) Stat 08/08/24 12:49 US abdomen limited Stat 08/08/24 13:40 PRBC [Packed Cells] Stat Type and Screen Stat 08/08/24 14:18 CT angio Abd/Pel GI Bleed Stat 08/08/24 15:32 Trop I [Troponin I] Stat 08/08/24 16:13 EKG-12 Lead Stat Enoxaparin Sodium (Enoxaparin 40 Mg/0.4 Ml Syringe) 40 mg SUBCUT DAILY [facility] Hydromorphone HCl (Hydromorphone 0.5 Mg Inj) 0.5 mg IV Q2H PRN PRN Reason: Pain, Severe (7-10) Nitroglycerin (Nitroglycerin) 50 mg in 250 mls @ 1.5 mls/hr IV TITRATE [facility]; Protocol Last Admin: 08/08/24 18:21 Dose: 5 mcg/min, 1.5 mls/hr Documented By: MS Piperacillin Sod/Tazobactam (Sod 4.5 gm/ Sodium Chloride) 100 mls @ 25 mls/hr IV Q8H [facility] Insulin Human Lispro (Insulin Lispro 100 Unit/Ml 3ml Vial) 0 unit SUBCUT Q6H [facility]; Protocol Naloxone HCl (Naloxone 0.4 Mg/Ml Vial) 0.2 mg IV Q2MIN PRN PRN Reason: Opiate Reversal Naloxone HCl (Naloxone 0.4 Mg/Ml Vial) 0.2 mg IV Q2MIN PRN PRN Reason: Opiate Reversal Discontinued Medications Furosemide (Furosemide 40 Mg/4 Ml Vial) 40 mg IV NOW ONE Stop: 08/08/24 12:04 Last Admin: 08/08/24 12:12 Dose: 40 mg Documented By: HADLEY Furosemide (Furosemide 40 Mg/4 Ml Vial) 40 mg IV NOW ONE Stop: 08/08/24 15:09 Last Admin: 08/08/24 15:26 Dose: 40 mg Documented By: KARL Hydralazine HCl (Hydralazine 20 Mg/Ml Vial) 10 mg IV NOW ONE Stop: 08/08/24 17:27 Hydralazine HCl (Hydralazine 20 Mg/Ml Vial) 10 mg IV NOW ONE Stop: 08/08/24 18:01 Piperacillin Sod/Tazobactam (Sod 4.5 gm/ Sodium Chloride) 100 mls @ 200 mls/hr IV NOW ONE Stop: 08/08/24 13:13 Last Infusion: 08/08/24 14:30 Dose: Infused Documented By: Admin: 08/08/24 13:37 Dose: 200 mls/hr Documented By: KARL Furosemide 100 mg/ Sodium (Chloride) 60 mls @ 120 mls/hr IV NOW ONE Stop: 08/08/24 17:21 Last Admin: 08/08/24 17:41 Dose: 120 mls/hr Documented By: Nitroglycerin (Nitroglycerin 0.4 Mg Sl Tab) 0.4 mg SL NOW ONE Stop: 08/08/24 12:04 Last Admin: 08/08/24 12:11 Dose: 0.4 mg Documented By: HADLEY Nitroglycerin (Nitroglycerin 0.4 Mg Sl Tab) 0.4 mg SL NOW ONE Stop: 08/08/24 12:36 Last Admin: 08/08/24 12:36 Dose: 0.4 mg Documented By: HADLEY Pantoprazole Sodium (Pantoprazole 40 Mg Vial) 80 mg IV NOW ONE Stop: 08/08/24 13:56 Last Admin: 08/08/24 14:25 Dose: 80 mg Documented By: MIGUE Vital Signs Vital signs: Vital Signs - 8 hr 08/08/24 12:03 08/08/24 12:04 08/08/24 12:04 Temperature Pulse Rate 136 H 140 H Respiratory Rate 36 H 36 H Blood Pressure 132/61 Pulse Oximetry 84 L 79 L Oxygen Delivery Method Nasal Cannula Oxygen Flow Rate 6 Fraction of Inspired Oxygen 08/08/24 12:05 08/08/24 12:06 08/08/24 12:08 Temperature 98.5 F Pulse Rate 145 H 145 H 144 H Respiratory Rate 37 H 37 H 35 H Blood Pressure 132/61 Pulse Oximetry 80 L 99 98 Oxygen Delivery Method Aerosol Mask BiPAP Oxygen Flow Rate 16 Fraction of Inspired Oxygen 08/08/24 12:10 08/08/24 12:12 08/08/24 12:13 Temperature Pulse Rate 140 H 138 H Respiratory Rate 36 H 36 H Blood Pressure Pulse Oximetry 93 97 Oxygen Delivery Method Oxygen Flow Rate Fraction of Inspired Oxygen 75 08/08/24 12:14 08/08/24 12:14 08/08/24 12:15 Temperature Pulse Rate 137 H Respiratory Rate 34 H Blood Pressure 132/63 131/67 Pulse Oximetry 98 Oxygen Delivery Method Oxygen Flow Rate Fraction of Inspired Oxygen 08/08/24 12:15 08/08/24 12:16 08/08/24 12:18 Temperature Pulse Rate 137 H 136 H 138 H Respiratory Rate 37 H 38 H 36 H Blood Pressure Pulse Oximetry 98 96 99 Oxygen Delivery Method Oxygen Flow Rate Fraction of Inspired Oxygen 08/08/24 12:20 08/08/24 12:20 08/08/24 12:22 Temperature Pulse Rate 137 H 138 H Respiratory Rate 32 H 34 H Blood Pressure 127/61 Pulse Oximetry 100 100 Oxygen Delivery Method Oxygen Flow Rate Fraction of Inspired Oxygen 08/08/24 12:24 08/08/24 12:26 08/08/24 12:28 Temperature Pulse Rate 139 H 141 H Respiratory Rate 34 H Blood Pressure 128/68 Pulse Oximetry 99 Oxygen Delivery Method Oxygen Flow Rate Fraction of Inspired Oxygen 08/08/24 12:28 08/08/24 12:30 08/08/24 12:30 Temperature Pulse Rate 137 H 133 H Respiratory Rate 32 H 0 L Blood Pressure 112/59 L Pulse Oximetry 100 100 Oxygen Delivery Method Oxygen Flow Rate Fraction of Inspired Oxygen 08/08/24 12:32 08/08/24 12:34 08/08/24 12:35 Temperature Pulse Rate 134 H 134 H Respiratory Rate Blood Pressure 98/54 L Pulse Oximetry 99 99 Oxygen Delivery Method Oxygen Flow Rate Fraction of Inspired Oxygen 08/08/24 12:35 08/08/24 12:36 08/08/24 12:36 Temperature Pulse Rate 133 H 132 H Respiratory Rate 32 H Blood Pressure 98/54 L Pulse Oximetry 99 99 Oxygen Delivery Method Oxygen Flow Rate Fraction of Inspired Oxygen 08/08/24 12:37 08/08/24 12:37 08/08/24 12:38 Temperature Pulse Rate 131 H 130 H Respiratory Rate 31 H 34 H Blood Pressure 100/50 L Pulse Oximetry 100 100 Oxygen Delivery Method Oxygen Flow Rate Fraction of Inspired Oxygen 08/08/24 12:40 08/08/24 12:40 08/08/24 12:41 Temperature Pulse Rate 130 H Respiratory Rate 28 H Blood Pressure 84/52 L 90/55 L Pulse Oximetry 100 Oxygen Delivery Method Oxygen Flow Rate Fraction of Inspired Oxygen 08/08/24 12:41 08/08/24 12:42 08/08/24 12:44 Temperature Pulse Rate 129 H 127 H 131 H Respiratory Rate 32 H 33 H 32 H Blood Pressure Pulse Oximetry 100 100 100 Oxygen Delivery Method Oxygen Flow Rate Fraction of Inspired Oxygen 08/08/24 12:45 08/08/24 12:45 08/08/24 12:46 Temperature Pulse Rate 128 H 128 H Respiratory Rate 29 H 29 H Blood Pressure 109/52 L Pulse Oximetry 100 99 Oxygen Delivery Method Oxygen Flow Rate Fraction of Inspired Oxygen 08/08/24 13:00 08/08/24 13:00 08/08/24 13:03 Temperature Pulse Rate 126 H Respiratory Rate 26 H Blood Pressure 112/55 L 107/55 L Pulse Oximetry 99 Oxygen Delivery Method Oxygen Flow Rate Fraction of Inspired Oxygen 08/08/24 13:03 08/08/24 13:06 08/08/24 13:06 Temperature Pulse Rate 123 H 122 H Respiratory Rate 29 H 25 H Blood Pressure 99/51 L Pulse Oximetry 98 100 Oxygen Delivery Method Oxygen Flow Rate Fraction of Inspired Oxygen 08/08/24 13:09 08/08/24 13:09 08/08/24 13:12 Temperature Pulse Rate 122 H Respiratory Rate 26 H Blood Pressure 100/53 L 103/52 L Pulse Oximetry 100 Oxygen Delivery Method Oxygen Flow Rate Fraction of Inspired Oxygen 08/08/24 13:12 08/08/24 13:15 08/08/24 13:15 Temperature Pulse Rate 120 H 119 H Respiratory Rate 22 25 H Blood Pressure 103/51 L Pulse Oximetry 99 100 Oxygen Delivery Method Oxygen Flow Rate Fraction of Inspired Oxygen 08/08/24 13:18 08/08/24 13:18 08/08/24 13:21 Temperature Pulse Rate 118 H Respiratory Rate 25 H Blood Pressure 104/51 L 103/54 L Pulse Oximetry 99 Oxygen Delivery Method BiPAP Oxygen Flow Rate Fraction of Inspired Oxygen 08/08/24 13:21 08/08/24 13:24 08/08/24 13:24 Temperature Pulse Rate 118 H 117 H Respiratory Rate 25 H 24 Blood Pressure 107/53 L Pulse Oximetry 100 100 Oxygen Delivery Method Oxygen Flow Rate Fraction of Inspired Oxygen 08/08/24 13:27 08/08/24 13:27 08/08/24 13:30 Temperature Pulse Rate 118 H Respiratory Rate 22 Blood Pressure 105/53 L 112/59 L Pulse Oximetry 100 Oxygen Delivery Method Oxygen Flow Rate Fraction of Inspired Oxygen 08/08/24 13:30 08/08/24 13:33 08/08/24 13:33 Temperature Pulse Rate 122 H 120 H Respiratory Rate 22 23 Blood Pressure 111/58 L Pulse Oximetry 100 100 Oxygen Delivery Method Oxygen Flow Rate Fraction of Inspired Oxygen 08/08/24 13:36 08/08/24 13:36 08/08/24 13:39 Temperature Pulse Rate 120 H Respiratory Rate 24 Blood Pressure 117/58 L 113/55 L Pulse Oximetry 100 Oxygen Delivery Method Oxygen Flow Rate Fraction of Inspired Oxygen 08/08/24 13:39 08/08/24 13:42 08/08/24 13:42 Temperature Pulse Rate 120 H 120 H Respiratory Rate 23 26 H Blood Pressure 122/57 L Pulse Oximetry 100 100 Oxygen Delivery Method Oxygen Flow Rate Fraction of Inspired Oxygen 08/08/24 13:45 08/08/24 13:45 08/08/24 13:46 Temperature Pulse Rate 120 H 120 H Respiratory Rate 26 H 22 Blood Pressure 113/59 L 113/59 L Pulse Oximetry 100 100 Oxygen Delivery Method Oxygen Flow Rate Fraction of Inspired Oxygen 08/08/24 14:00 08/08/24 14:00 08/08/24 14:06 Temperature Pulse Rate 122 H Respiratory Rate 28 H Blood Pressure 111/58 L 113/59 L Pulse Oximetry 100 Oxygen Delivery Method Oxygen Flow Rate Fraction of Inspired Oxygen 08/08/24 14:06 08/08/24 14:15 08/08/24 14:15 Temperature Pulse Rate 123 H 107 H Respiratory Rate 29 H 27 H Blood Pressure 119/59 L Pulse Oximetry 100 100 Oxygen Delivery Method Oxygen Flow Rate Fraction of Inspired Oxygen 08/08/24 14:18 08/08/24 14:18 08/08/24 14:22 Temperature Pulse Rate 115 H Respiratory Rate 28 H Blood Pressure 119/61 119/61 Pulse Oximetry 100 Oxygen Delivery Method Oxygen Flow Rate Fraction of Inspired Oxygen 45 08/08/24 14:30 08/08/24 14:30 08/08/24 14:45 Temperature Pulse Rate 118 H 120 H Respiratory Rate 26 H 26 H Blood Pressure 117/63 Pulse Oximetry 100 98 Oxygen Delivery Method Oxygen Flow Rate Fraction of Inspired Oxygen 08/08/24 14:45 08/08/24 15:00 08/08/24 15:00 Temperature Pulse Rate 120 H Respiratory Rate 26 H Blood Pressure 134/63 127/62 Pulse Oximetry 98 Oxygen Delivery Method Oxygen Flow Rate Fraction of Inspired Oxygen 08/08/24 15:15 08/08/24 15:15 08/08/24 15:30 Temperature Pulse Rate 121 H Respiratory Rate 25 H Blood Pressure 122/62 130/64 Pulse Oximetry 100 Oxygen Delivery Method Oxygen Flow Rate Fraction of Inspired Oxygen 08/08/24 15:30 08/08/24 15:45 08/08/24 15:45 Temperature Pulse Rate 117 H 116 H Respiratory Rate 24 23 Blood Pressure 139/66 Pulse Oximetry 100 98 Oxygen Delivery Method Oxygen Flow Rate Fraction of Inspired Oxygen 08/08/24 15:57 08/08/24 16:00 08/08/24 16:00 Temperature 96.9 F L Pulse Rate 116 H 115 H Respiratory Rate 15 25 H Blood Pressure 139/66 132/66 Pulse Oximetry 99 Oxygen Delivery Method Oxygen Flow Rate Fraction of Inspired Oxygen 08/08/24 16:14 08/08/24 16:15 08/08/24 16:15 Temperature 97.0 F L 97.0 F L Pulse Rate 118 H 118 H Respiratory Rate 18 18 Blood Pressure 134/70 134/70 134/70 Pulse Oximetry Oxygen Delivery Method Oxygen Flow Rate Fraction of Inspired Oxygen 08/08/24 16:15 08/08/24 16:30 08/08/24 16:30 Temperature Pulse Rate 117 H 114 H Respiratory Rate 23 22 Blood Pressure 143/73 H Pulse Oximetry 98 98 Oxygen Delivery Method Oxygen Flow Rate Fraction of Inspired Oxygen MDM - SOB/Dyspnea Lab Data 08/08/24 12:10 08/08/24 12:10 Labs: Lab Results 08/08/24 08/08/24 08/08/24 Range/Units 12:10 12:31 12:38 WBC 18.2 H (4.5-11.0) X10^3/uL RBC 3.29 L (4.0-5.2) X10^6/uL Hgb 7.1 L (12.0-16.0) g/dL Hct 24.3 L (36-46) % MCV 74.0 L (80-100) fL MCH 21.6 L (26-34) PG MCHC 29.2 L (30-36) % RDW 19.0 H (11.6-14.8) % Plt Count 580 H (150-400) X10^3/uL Neut % (Auto) 83.3 H (50-75) % Lymph % (Auto) 11.8 L (25-40) % [place] % (Auto) 3.8 (3-14) % Eos % (Auto) 0.4 L (2-4) % Baso % (Auto) 0.7 (0-2) % Neut # (Auto) 89341 H (3738-2325) /uL Lymph # (Auto) 2100 (8461-4593) /uL [place] # (Auto) 700 (0-900) /uL Eos # (Auto) 100 (0-450) /uL Baso # (Auto) 100 (0-100) /uL PT 11.9 (9.4-12.5) SECONDS INR 1.0 (0.9-1.3) APTT 29 (25.1-36.5) SECONDS ABG Sample Site Right radial ABG pH 7.31 L (7.35-7.45) ABG pCO2 49.3 H (35-45) mmHg ABG pO2 296 H* (80-100) mmHg ABG HCO3 25 (23-27) mmol/L ABG Total CO2 25 (23-27) mmol/L ABG O2 Saturation 100 (95-100) % ABG Base Excess -1.6 (-2-3) mmol/L [place] Test Positive Respiration Rate 15 O2 Delivery Device Bipap Mode of Support Bi-level ventilation FiO2 % 75 % % Pressure Support 16 PEEP or CPAP 6 Sodium 136 L (137-145) mmol/L Potassium 4.7 (3.4-5.1) mmol/L Chloride 100 (98-107) mmol/L Carbon Dioxide 22 (22-32) mmol/L BUN 36 H (7-17) mg/dL Creatinine 1.62 H (0.52-1.04) mg/dL Estimated GFR 35 L (>60) mL/min BUN/Creatinine Ratio 22.2 H (6-22) Glucose 276 H (80-110) mg/dL Lactate 5.0 H* (0.7-2.1) mmol/L Calcium 9.6 (8.4-10.2) mg/dL Total Bilirubin 0.8 (0.2-1.3) mg/dL AST 47 H (14-36) IU/L ALT 24 (<35) IU/L Alkaline Phosphatase 60 (38-126) U/L Total Creatine Kinase 126 (30-135) U/L Troponin I 0.084 H (0.01-0.034) ng/mL NT-Pro-B Natriuret Pep 1130 H (<125) pg/mL Total Protein 8.0 (6.3-8.2) g/dL Albumin 4.5 (3.5-5.0) g/dL Globulin 3.5 (1.7-4.1) g/dL Albumin/Globulin Ratio 1.3 (1.0-2.8) Lipase 95 (23-300) U/L Procalcitonin 0.117 (<0.5) ng/mL Urine Color Yellow Urine Appearance Clear Urine pH 5.0 (4.5-8.0) Ur Specific [place] 1.020 (1.000-1.035) Urine Protein Negative (Negative) Urine Glucose (UA) Negative (Negative) g/dL Urine Ketones Negative (NEGATIVE) Urine Occult Blood Negative (Negative) Urine Nitrate Negative (Negative) Urine Bilirubin Negative (NEGATIVE) Urine Urobilinogen 0.2 (0.2) E.U./dL Ur Leukocyte Esterase Trace H (NEGATIVE) Urine RBC 0-1/hpf (0-5/HPF) Urine WBC 0-1/hpf (0-5/HPF) Ur Squamous Epith Cells 1-5 /hpf (0-5/HPF) Urine Bacteria Many (>30) H (None) Ur Culture Indicated? Specimen cultured Vol Urine Centrifuged 10ml (spun) Chlamy pneumoniae PCR (Not Detect) Adenovirus (PCR) (Not Detect) B.parapertussis DNA PCR (Not Detecte) Coronavirus OC43 (PCR) (Not Detect) Coronavirus HKU1 (PCR) (Not Detect) Coronavirus 229E (PCR) (Not Detect) SARS-CoV-2 (PCR) (Not Detecte) Coronavirus NL63 (PCR) (Not Detect) Human Metapneumovir PCR (Not Detect) Influenza Type A (PCR) (Not Detect) Influenza Type B (PCR) (Not Detect) M. pneumoniae (PCR) (Not Detect) Parainfluenza 1 (PCR) (Not Detect) Parainfluenza 2 (PCR) (Not Detect) Parainfluenza 3 (PCR) (Not Detect) Parainfluenza 4 (PCR) (Not Detect) RSV (PCR) (Not Detect) Entero/Rhino (PCR) (Not Detect) Blood Type Antibody Screen Crossmatch 08/08/24 08/08/24 08/08/24 Range/Units 12:42 13:40 14:02 WBC (4.5-11.0) X10^3/uL RBC (4.0-5.2) X10^6/uL Hgb (12.0-16.0) g/dL Hct (36-46) % MCV (80-100) fL MCH (26-34) PG MCHC (30-36) % RDW (11.6-14.8) % Plt Count (150-400) X10^3/uL Neut % (Auto) (50-75) % Lymph % (Auto) (25-40) % [place] % (Auto) (3-14) % Eos % (Auto) (2-4) % Baso % (Auto) (0-2) % Neut # (Auto) (4485-3680) /uL Lymph # (Auto) (4177-5810) /uL [place] # (Auto) (0-900) /uL Eos # (Auto) (0-450) /uL Baso # (Auto) (0-100) /uL PT (9.4-12.5) SECONDS INR (0.9-1.3) APTT (25.1-36.5) SECONDS ABG Sample Site ABG pH (7.35-7.45) ABG pCO2 (35-45) mmHg ABG pO2 (80-100) mmHg ABG HCO3 (23-27) mmol/L ABG Total CO2 (23-27) mmol/L ABG O2 Saturation (95-100) % ABG Base Excess (-2-3) mmol/L [place] Test Respiration Rate O2 Delivery Device Mode of Support FiO2 % % Pressure Support PEEP or CPAP Sodium (137-145) mmol/L Potassium (3.4-5.1) mmol/L Chloride (98-107) mmol/L Carbon Dioxide (22-32) mmol/L BUN (7-17) mg/dL Creatinine (0.52-1.04) mg/dL Estimated GFR (>60) mL/min BUN/Creatinine Ratio (6-22) Glucose (80-110) mg/dL Lactate 4.2 H* (0.7-2.1) mmol/L Calcium (8.4-10.2) mg/dL Total Bilirubin (0.2-1.3) mg/dL AST (14-36) IU/L ALT (<35) IU/L Alkaline Phosphatase (38-126) U/L Total Creatine Kinase (30-135) U/L Troponin I (0.01-0.034) ng/mL NT-Pro-B Natriuret Pep (<125) pg/mL Total Protein (6.3-8.2) g/dL Albumin (3.5-5.0) g/dL Globulin (1.7-4.1) g/dL Albumin/Globulin Ratio (1.0-2.8) Lipase (23-300) U/L Procalcitonin (<0.5) ng/mL Urine Color Urine Appearance Urine pH (4.5-8.0) Ur Specific [place] (1.000-1.035) Urine Protein (Negative) Urine Glucose (UA) (Negative) g/dL Urine Ketones (NEGATIVE) Urine Occult Blood (Negative) Urine Nitrate (Negative) Urine Bilirubin (NEGATIVE) Urine Urobilinogen (0.2) E.U./dL Ur Leukocyte Esterase (NEGATIVE) Urine RBC (0-5/HPF) Urine WBC (0-5/HPF) Ur Squamous Epith Cells (0-5/HPF) Urine Bacteria (None) Ur Culture Indicated? Vol Urine Centrifuged Chlamy pneumoniae PCR Not detected (Not Detect) Adenovirus (PCR) Not detected (Not Detect) B.parapertussis DNA PCR Not detected (Not Detecte) Coronavirus OC43 (PCR) Not detected (Not Detect) Coronavirus HKU1 (PCR) Not detected (Not Detect) Coronavirus 229E (PCR) Not detected (Not Detect) SARS-CoV-2 (PCR) Not detected (Not Detecte) Coronavirus NL63 (PCR) Not detected (Not Detect) Human Metapneumovir PCR Not detected (Not Detect) Influenza Type A (PCR) Not detected (Not Detect) Influenza Type B (PCR) Not detected (Not Detect) M. pneumoniae (PCR) Not detected (Not Detect) Parainfluenza 1 (PCR) Not detected (Not Detect) Parainfluenza 2 (PCR) Not detected (Not Detect) Parainfluenza 3 (PCR) Not detected (Not Detect) Parainfluenza 4 (PCR) Not detected (Not Detect) RSV (PCR) Not detected (Not Detect) Entero/Rhino (PCR) Not detected (Not Detect) Blood Type A Positive Antibody Screen Negative Crossmatch See Detail 08/08/24 Range/Units 15:32 WBC (4.5-11.0) X10^3/uL RBC (4.0-5.2) X10^6/uL Hgb (12.0-16.0) g/dL Hct (36-46) % MCV (80-100) fL MCH (26-34) PG MCHC (30-36) % RDW (11.6-14.8) % Plt Count (150-400) X10^3/uL Neut % (Auto) (50-75) % Lymph % (Auto) (25-40) % [place] % (Auto) (3-14) % Eos % (Auto) (2-4) % Baso % (Auto) (0-2) % Neut # (Auto) (3256-9473) /uL Lymph # (Auto) (5658-0617) /uL [place] # (Auto) (0-900) /uL Eos # (Auto) (0-450) /uL Baso # (Auto) (0-100) /uL PT (9.4-12.5) SECONDS INR (0.9-1.3) APTT (25.1-36.5) SECONDS ABG Sample Site ABG pH (7.35-7.45) ABG pCO2 (35-45) mmHg ABG pO2 (80-100) mmHg ABG HCO3 (23-27) mmol/L ABG Total CO2 (23-27) mmol/L ABG O2 Saturation (95-100) % ABG Base Excess (-2-3) mmol/L [place] Test Respiration Rate O2 Delivery Device Mode of Support FiO2 % % Pressure Support PEEP or CPAP Sodium (137-145) mmol/L Potassium (3.4-5.1) mmol/L Chloride (98-107) mmol/L Carbon Dioxide (22-32) mmol/L BUN (7-17) mg/dL Creatinine (0.52-1.04) mg/dL Estimated GFR (>60) mL/min BUN/Creatinine Ratio (6-22) Glucose (80-110) mg/dL Lactate (0.7-2.1) mmol/L Calcium (8.4-10.2) mg/dL Total Bilirubin (0.2-1.3) mg/dL AST (14-36) IU/L ALT (<35) IU/L Alkaline Phosphatase (38-126) U/L Total Creatine Kinase (30-135) U/L Troponin I 0.698 H* (0.01-0.034) ng/mL NT-Pro-B Natriuret Pep (<125) pg/mL Total Protein (6.3-8.2) g/dL Albumin (3.5-5.0) g/dL Globulin (1.7-4.1) g/dL Albumin/Globulin Ratio (1.0-2.8) Lipase (23-300) U/L Procalcitonin (<0.5) ng/mL Urine Color Urine Appearance Urine pH (4.5-8.0) Ur Specific [place] (1.000-1.035) Urine Protein (Negative) Urine Glucose (UA) (Negative) g/dL Urine Ketones (NEGATIVE) Urine Occult Blood (Negative) Urine Nitrate (Negative) Urine Bilirubin (NEGATIVE) Urine Urobilinogen (0.2) E.U./dL Ur Leukocyte Esterase (NEGATIVE) Urine RBC (0-5/HPF) Urine WBC (0-5/HPF) Ur Squamous Epith Cells (0-5/HPF) Urine Bacteria (None) Ur Culture Indicated? Vol Urine Centrifuged Chlamy pneumoniae PCR (Not Detect) Adenovirus (PCR) (Not Detect) B.parapertussis DNA PCR (Not Detecte) Coronavirus OC43 (PCR) (Not Detect) Coronavirus HKU1 (PCR) (Not Detect) Coronavirus 229E (PCR) (Not Detect) SARS-CoV-2 (PCR) (Not Detecte) Coronavirus NL63 (PCR) (Not Detect) Human Metapneumovir PCR (Not Detect) Influenza Type A (PCR) (Not Detect) Influenza Type B (PCR) (Not Detect) M. pneumoniae (PCR) (Not Detect) Parainfluenza 1 (PCR) (Not Detect) Parainfluenza 2 (PCR) (Not Detect) Parainfluenza 3 (PCR) (Not Detect) Parainfluenza 4 (PCR) (Not Detect) RSV (PCR) (Not Detect) Entero/Rhino (PCR) (Not Detect) Blood Type Antibody Screen Crossmatch Imaging Data CT scan - abdomen/pelvis: Radiologist's Impression: PROCEDURE: CT ANGIO ABD/PEL GI BLEED INDICATIONS: Shortness of Breath/Dyspnea TECHNIQUE: After the administration of intravenous contrast, 2.5 mm thick sections acquired from the diaphragm to the symphysis. 10 mm maximum-intensity projection (MIP) reformats were then acquired. For radiation dose reduction, the following was used: automated exposure control. COMPARISON: None. FINDINGS: Image Quality: Diagnostic. Abdominal aorta: Normal caliber. Peripheral calcifications. No aneurysm or dissection or stenosis. Mesenteric arteries: Patent without hemodynamically significant stenosis. Renal arteries: The right kidney has 2 relatively small renal arteries. No left renal artery stenosis. OTHER: Lower Chest: Interstitial pulmonary edema and mild alveolar pulmonary edema. Small right pleural effusion. Normal heart size. Trace pericardial effusion. Liver: No solid mass. Gallbladder: No radiopaque gallstones or wall thickening. Biliary ducts: No biliary dilation. Pancreas: No ductal dilation. Spleen: Size is within normal limits. Adrenal Glands: No adrenal nodules. Kidneys and Ureters: No hydronephrosis. No solid mass. No complex renal cystic lesion which requires follow up. Stomach and Bowel: Normal colonic caliber, without significant wall thickening. Peritoneum: No abnormal intraperitoneal fluid. No free air. Ventral Wall: No hernia. Abdominal Nodes: No retroperitoneal or mesenteric adenopathy by size criteria. Vessels: Aorta and inferior vena cava are normal in size. PELVIS: Pelvic Organs: Uterus is surgically absent. No adnexal masses.. Bladder: Completely decompressed by a Luna catheter. Pelvic Nodes: No enlarged lymph nodes. Miscellaneous: Bilateral fat containing inguinal hernias are seen. Bones: No aggressive osseous abnormality. IMPRESSION: 1. Congestive heart failure exacerbation. 2. No acute GI bleed identified. 3. No acute abdominal process. 4. Remote hysterectomy. Dictated by: Solis Wileks M.D. on 08/08/2024 at 15:38 US - abdomen: Radiologist's Impression: PROCEDURE: US ABDOMEN LIMITED INDICATIONS: HIGH AST TECHNIQUE: Real-time scanning was performed of the abdominal and retroperitoneal organs, with image documentation. COMPARISON: None. FINDINGS: Tjhogcsu-ow-vahbbt diffuse increased echogenicity of the liver commonly hepatic steatosis or other intrinsic hepatic disease. Liver measures approximately 16.3 cm in CC dimension of the right lobe within normal limits in size. Hepatic contour is not well delineated but no gross lobulations Hepatic parenchyma is partially imaged due to limited penetration of the ultrasound. Gallbladder is nondistended without echogenic shadowing gallstones. No ultrasound evidence of gallbladder wall thickening or pericholecystic fluid to suggest cholecystitis. Common bile duct 4 mm within normal limits. Pancreas is not visualized due to overlying bowel gas. IMPRESSION: Nqpehpkd-wn-kxclrk diffuse increased echogenicity of the liver. Dictated by: Edward Colunga M.D. on 08/08/2024 at 13:30 ECG Data Attestation: I personally reviewed and interpreted this ECG as follows: Prior ECG tracings: available for review Interpretation: Sinus tachycardia rate 137 ME interval 120 QRS 150 QTC 525 no Sgarbossa criteria similar to previous EKGs MDM Narrative Medical decision making narrative: [facility] CC: Shortness of breath Complicating co-morbidities: Obesity CHF Medical records reviewed: yes Differential considered: Flash pulmonary edema, COPD acute coronary syndrome, pulmonary embolus, GI bleed Exam documented above, pertinent findings include: Acute respiratory distress, no peripheral edema wheezing bilaterally unable to speak in full sentences Lab Test results independently reviewed as above. Pertinent findings: Lactate 5.0-->4.4, hemoglobin 7.1 hematocrit 24.3 previously 11.1 and 33.2 12/07/2023, WBC 18.2 CMP sodium 136 potassium 4.7 chloride 100 carbon dioxide 22 BUN 36 creatinine 1.62 previously 0.9, bilirubin 0.8 AST 47 ALT 24 alk-phos 60 trop 0.084 BNP 1011 130 Respiratory panel negative Independently reviewed EKG as above: Persistent left bundle-branch block tachycardic no Sgarbossa Imaging studies independently reviewed: Chest x-ray increased pulmonary vascular congestion with bilateral pleural effusions Ultrasound no cholecystitis cholelithiasis CT angio no active bleeding or cause for abdominal Consultations: Dr. Zhang cardiology updated patient's symptoms test results agrees that this is likely demand ischemia related troponin. Does not need an urgent or emergent heart catheterization. Does not require heparin especially with anemia agrees with transfusion as needed. Treatments: BiPAP Lasix nitro 1 unit packed red blood cells, Zosyn Re-evaluations: Significant improvement with BiPAP nitro and Lasix Discussion: Patient is 63-year-old female presents today with sudden onset of worsening shortness of breath. It has been ongoing for 24 hours she was some abdominal pain. She reports that a few days ago she had some black tarry stool but says it has resolved she has had no nausea vomiting or bright red blood. Rectal exam there is no gross blood or stool. She did show me a picture of her last bowel movement which was formed brown stool. She does have anemia hemoglobin 7.1 hematocrit 24.3 previously 11.1/33.2. Concern for GI bleed CT angio does not show active bleeding. She is given 1 unit of blood and more Lasix. After the 1st dose of Lasix she actually did not have significant urinary output but did have son some and breathing did improve. He was also found have leukocytosis and elevated lactic acid. I suspect lactic acidosis is secondary to work of breathing and respiratory distress rather than sepsis nonetheless she has given a dose of Zosyn and blood cultures are pending. She has not a candidate for fluid bolus secondary to acute respiratory distress and pulmonary edema. She overall did improve. Dr. Valdez accepts. Dr. Saavedra in ED and updated on patient in person. Critical Care Time Critical Care Time Critical Care Time: Yes Total Critical Care Time: 45 Attestation: The high probability of a clinically significant, sudden or life threatening deterioration of the [cardiovascular] system(s) required my full and direct attention, intervention and personal management. The aggregate critical care time was [45] minutes. This time is in addition to time spent performing reported procedures but includes the following: [x] Data Review and interpretation [x] Patient assessment and monitoring of vital signs [x] Documentation [x] Medication orders and management Discharge Plan Departure Patient Disposition: Admitted As Inpatient Clinical Impression: CHF (congestive heart failure), Respiratory failure, Anemia Admit Date/Time: 08/08/24 16:44 Admit Provider: Noe Rider
[2024-08-08 12:31] LABS: Prothrombin Time 11.9 SECONDS (9.4-12.5)
[2024-08-08 12:34] LABS: Alanine Aminotransferase 24 IU/L (<35); Albumin 4.5 g/dL (3.5-5.0); Albumin Globulin Ratio 1.3 (1.0-2.8); Alkaline Phosphatase 60 U/L (38-126); BUN Creatinine Ratio 22.2 (6-22); Bilirubin Total 0.8 mg/dL (0.2-1.3); Blood Urea Nitrogen 36 mg/dL (7-17); Calcium 9.6 mg/dL (8.4-10.2); Carbon Dioxide 22 mmol/L (22-32); Chloride 100 mmol/L (98-107); Creatine Kinase 126 U/L (30-135); Estimated Glomerular Filt Rate 35 mL/min (>60); Globulin 3.5 g/dL (1.7-4.1); Glucose 276 mg/dL (80-110); Lipase 95 U/L (23-300); PTT Partial Thromboplastin Tim 29 SECONDS (25.1-36.5); Sodium 136 mmol/L (137-145)
[2024-08-08 12:43] LABS: Allen Test for ABG Passed? Positive; Base Excess ABG -1.6 mmol/L (-2-3); Blood Gas Collection Site Right Radial; Blood Gas Mode Bi-Level Ventilation; Delivery System BiPAP; HCO3 ABG 25 mmol/L (23-27); Oxygen Saturation ABG 100 % (95-100); PCO2 ABG 49.3 mmHg (35-45); PEEP 6; PO2 ABG 296 mmHg (80-100); Pressure Support 16; Respiratory Rate 15; TCO2 ABG 25 mmol/L (23-27); pH ABG 7.31 (7.35-7.45)
[2024-08-08 12:44] LABS: NT-proBNP (BNP-Adult 18+) 1130 pg/mL (<125)
[2024-08-08 12:47] LABS: Troponin I 0.084 ng/mL (0.01-0.034)
--- NOTE | 2024-08-08 12:49 | DI.US.S_ITS ---
PROCEDURE: US ABDOMEN LIMITED INDICATIONS: HIGH AST TECHNIQUE: Real-time scanning was performed of the abdominal and retroperitoneal organs, with image documentation. COMPARISON: None. FINDINGS: Owoagblw-wr-yeyfeb diffuse increased echogenicity of the liver commonly hepatic steatosis or other intrinsic hepatic disease. Liver measures approximately 16.3 cm in CC dimension of the right lobe within normal limits in size. Hepatic contour is not well delineated but no gross lobulations Hepatic parenchyma is partially imaged due to limited penetration of the ultrasound. Gallbladder is nondistended without echogenic shadowing gallstones. No ultrasound evidence of gallbladder wall thickening or pericholecystic fluid to suggest cholecystitis. Common bile duct 4 mm within normal limits. Pancreas is not visualized due to overlying bowel gas. IMPRESSION: Ozdlulcx-yl-wpgbsp diffuse increased echogenicity of the liver. Dictated by: Edward Colunga M.D. on 08/08/2024 at 13:30 Approved by: Edward Colunga M.D. on 08/08/2024 at 13:37
[2024-08-08 12:51] LABS: Aspartate Aminotransferase 47 IU/L (14-36); HEMOLYSIS 65 (0-50); Potassium 4.7 mmol/L (3.4-5.1)
[2024-08-08 12:52] LABS: Procalcitonin 0.117 ng/mL (<0.5)
[2024-08-08 13:02] LABS: Appearance Urine UA CLEAR; Bilirubin Urine UA NEGATIVE (NEGATIVE); Color Urine UA YELLOW; Glucose Urine UA NEGATIVE (Negative); Ketones Urine UA NEGATIVE (NEGATIVE); Leukocyte Esterase Urine UA TRACE (NEGATIVE); Nitrite Urine UA NEGATIVE (Negative); Occult Blood Urine UA NEGATIVE (Negative); Protein Urine UA NEGATIVE (Negative); Urobilinogen Urine UA 0.2 E.U./dL (0.2)
[2024-08-08 13:10] LABS: Bacteria Urine Many (>30); Culture Indicated Urine Specimen Cultured; RBC Urine 0-1/HPF (0-5/HPF); Squamous Epithelial Cell Urine 1-5 /HPF (0-5/HPF); Urine Volume 10mL (spun); WBC Urine 0-1/HPF (0-5/HPF)
[2024-08-08] MEDS: PIPERACILLIN/TAZO 4.5 GM in SODIUM CHLORIDE 0.9% 100 ML IV (13:37)
[2024-08-08 13:55] LABS: Reflexed Lactate in 2 Hours Y
[2024-08-08 14:12] LABS: Adenovirus Not Detected (Not Detect); B. parapertussis Not Detected (Not Detecte); Bordetella pertussis Not Detected (Not Detect); Chlamydophila pneumoniae Not Detected (Not Detect); Coronavirus 229E Not Detected (Not Detect); Coronavirus HKU1 Not Detected (Not Detect); Coronavirus NL 63 Not Detected (Not Detect); Coronavirus OC43 Not Detected (Not Detect); Human Metapneumovirus Not Detected (Not Detect); Human Rhinovirus/Enterovirus Not Detected (Not Detect); Influenza A Not Detected (Not Detect); Influenza B Not Detected (Not Detect); Mycoplasma pneumoniae Not Detected (Not Detect); Parainfluenza Virus 1 Not Detected (Not Detect); Parainfluenza Virus 2 Not Detected (Not Detect); Parainfluenza Virus 3 Not Detected (Not Detect); Parainfluenza Virus 4 Not Detected (Not Detect); Respiratory Syncytial Virus Not Detected (Not Detect); SARS- CoV-2 Not Detected (Not Detecte)
--- NOTE | 2024-08-08 14:18 | DI.CT.S_ITS ---
PROCEDURE: CT ANGIO ABD/PEL GI BLEED INDICATIONS: Shortness of Breath/Dyspnea TECHNIQUE: After the administration of intravenous contrast, 2.5 mm thick sections acquired from the diaphragm to the symphysis. 10 mm maximum-intensity projection (MIP) reformats were then acquired. For radiation dose reduction, the following was used: automated exposure control. COMPARISON: None. FINDINGS: Image Quality: Diagnostic. Abdominal aorta: Normal caliber. Peripheral calcifications. No aneurysm or dissection or stenosis. Mesenteric arteries: Patent without hemodynamically significant stenosis. Renal arteries: The right kidney has 2 relatively small renal arteries. No left renal artery stenosis. OTHER: Lower Chest: Interstitial pulmonary edema and mild alveolar pulmonary edema. Small right pleural effusion. Normal heart size. Trace pericardial effusion. Liver: No solid mass. Gallbladder: No radiopaque gallstones or wall thickening. Biliary ducts: No biliary dilation. Pancreas: No ductal dilation. Spleen: Size is within normal limits. Adrenal Glands: No adrenal nodules. Kidneys and Ureters: No hydronephrosis. No solid mass. No complex renal cystic lesion which requires follow up. Stomach and Bowel: Normal colonic caliber, without significant wall thickening. Peritoneum: No abnormal intraperitoneal fluid. No free air. Ventral Wall: No hernia. Abdominal Nodes: No retroperitoneal or mesenteric adenopathy by size criteria. Vessels: Aorta and inferior vena cava are normal in size. PELVIS: Pelvic Organs: Uterus is surgically absent. No adnexal masses.. Bladder: Completely decompressed by a Luna catheter. Pelvic Nodes: No enlarged lymph nodes. Miscellaneous: Bilateral fat containing inguinal hernias are seen. Bones: No aggressive osseous abnormality. IMPRESSION: 1. Congestive heart failure exacerbation. 2. No acute GI bleed identified. 3. No acute abdominal process. 4. Remote hysterectomy. Dictated by: Solis Wilkes M.D. on 08/08/2024 at 15:38 Approved by: Solis Wilkes M.D. on 08/08/2024 at 15:44
[2024-08-08] MEDS: PANTOPRAZOLE 40 MG VIAL 80 MG IV (14:25)
[2024-08-08 14:31] LABS: Lactate 2HR (Lactic Acid Rflx) 4.2 mmol/L (0.7-2.1)
--- NOTE | 2024-08-08 14:32 | PC.NURSE ---
Lab called stated repeat lactate is 4.2. MD Bar made aware
[2024-08-08 16:07] LABS: Troponin I 0.698 ng/mL (0.01-0.034)
--- NOTE | 2024-08-08 16:15 | EKG_ITS ---
[address] [address] Test Date: 2024-08-08 Pat Name: Mary Small Department: [facility] Room: Gender: Female [employer] Systems Engineer: IMTIAZ : 1960 Requested By: Order Number: [id number] Reading MD: Seamus Valdez Measurements Intervals [place] Rate: 117 P: 59 FL: 168 QRS: 20 QRSD: 144 T: 148 QT: 364 QTc: 507 Interpretive Statements Sinus tachycardia Left bundle branch block Electronically Signed On 08-09-2024 17:57:19 PDT by Seamus Valdez
--- NOTE | 2024-08-08 17:18 | PM.HP.1 ---
History of Present Illness History of Present Illness Date Patient Seen: 08/08/24 Chief complaint: SOB Narrative: 63 year old woman under the primary care of Dr. Humza Ferrer with a history of diastolic congestive heart failure, multiple strokes with chronic right-sided weakness and long-term variably controlled diabetes presents with onset of significant increased shortness of breath, abdominal discomfort, swelling and increased lower extremity edema. She notes that for the past 9 months she has had orthopnea symptoms and sleeps in a recliner, with chronic refractory lower extremity edema. She has been followed by Cardiology on diuretic therapy. She was found to be hypoxic in the field with oxygen saturations in the 70s 80s% range, misread 6 L of nasal cannula oxygen and brought to the emergency department. She was placed on BiPAP due to progressive hypoxemia, administered IV furosemide and transferred to the ICU. ER note: Patient is a 63 female history of multiple strokes on Plavix chronic right-sided weakness uses a walker diabetes on insulin hypertension hyperlipidemia no known history of congestive heart failure but takes Lasix presenting today with increasing shortness of breath. She reports it has been ongoing for the last 24 hours feeling some abdominal pain and swelling. EMS reports that she was hypoxic upon arrival actually started giving her DuoNeb. She is this has she required 6 L nasal cannula she improved somewhat with a DuoNeb however right before arrival she is quickly decompensated. She denies any sort of chest pain he is unable to have a conversation continues to be hypoxic and appears in moderate to severe respiratory distress. [facility] Social History household members: spouse Smoking Status: Former smoker alcohol intake: current Meds Home Medications and Allergies Home Medications Medication Instructions Recorded Confirmed Type atorvastatin 80 mg tablet 80 mg PO DAILY 12/05/23 08/08/24 History ergocalciferol (vitamin D2) 1,250 1,250 mcg PO QWEEK 12/05/23 12/05/23 History mcg (50,000 unit) capsule gabapentin 100 mg capsule 100 mg PO QPM 12/05/23 08/08/24 History insulin glargine 100 unit/mL (3 47 unit SUBCUT BID 12/05/23 12/05/23 History mL) subcutaneous pen (Lantus Solostar U-100 Insulin) insulin lispro 100 unit/mL See Protocol SUBCUT AC 12/05/23 12/05/23 History subcutaneous pen (Humalog KwikPen (U-100) Insulin) isosorbide mononitrate 30 mg 30 mg PO DAILY 12/05/23 08/08/24 History tablet,extended release 24 hr metformin 500 mg tablet,extended 500 mg PO BID 12/05/23 08/08/24 History release 24 hr metoprolol succinate 25 mg 25 mg PO DAILY 12/05/23 08/08/24 History tablet,extended release 24 hr pantoprazole 40 mg tablet,delayed 40 mg PO DAILY 12/05/23 08/08/24 History release trazodone 100 mg tablet 100 mg PO ONCE PM 12/05/23 08/08/24 History amlodipine 5 mg tablet 5 mg PO DAILY #30 tabs 12/07/23 Rx valsartan 320 mg tablet 160 mg (1/2 x 320 mg) PO DAILY #30 12/07/23 08/08/24 Rx tabs clopidogrel 75 mg tablet 75 mg PO DAILY 08/08/24 08/08/24 History fenofibrate 54 mg tablet 54 mg PO DAILY 08/08/24 08/08/24 History furosemide 20 mg tablet 20 mg PO BID 08/08/24 08/08/24 History potassium chloride 10 mEq 10 meq PO DAILY 08/08/24 08/08/24 History tablet,extended release(part/cryst) spironolactone 25 mg tablet 25 mg PO BID 08/08/24 08/08/24 History Allergies Allergy/AdvReac Type Severity Reaction Status Date / Time neomycin Allergy Mild Redness of Verified 08/08/24 12:05 Skin Sulfa (Sulfonamide Allergy Verified 08/08/24 12:05 Antibiotics) Review of Systems Review of Systems ROS: Yes All systems reviewed with the patient and are negative except as otherwise documented Exam Vital Signs (past 8 hours): - 08/08/24 12:03 08/08/24 12:04 08/08/24 12:04 Temperature Pulse Rate 136 H 140 H Respiratory Rate 36 H 36 H Blood Pressure 132/61 Pulse Oximetry 84 L 79 L Oxygen Delivery Method Nasal Cannula Oxygen Flow Rate 6 Fraction of Inspired Oxygen 08/08/24 12:05 08/08/24 12:06 08/08/24 12:08 Temperature 98.5 F Pulse Rate 145 H 145 H 144 H Respiratory Rate 37 H 37 H 35 H Blood Pressure 132/61 Pulse Oximetry 80 L 99 98 Oxygen Delivery Method Aerosol Mask BiPAP Oxygen Flow Rate 16 Fraction of Inspired Oxygen 08/08/24 12:10 08/08/24 12:12 08/08/24 12:13 Temperature Pulse Rate 140 H 138 H Respiratory Rate 36 H 36 H Blood Pressure Pulse Oximetry 93 97 Oxygen Delivery Method Oxygen Flow Rate Fraction of Inspired Oxygen 75 08/08/24 12:14 08/08/24 12:14 08/08/24 12:15 Temperature Pulse Rate 137 H Respiratory Rate 34 H Blood Pressure 132/63 131/67 Pulse Oximetry 98 Oxygen Delivery Method Oxygen Flow Rate Fraction of Inspired Oxygen 08/08/24 12:15 08/08/24 12:16 08/08/24 12:18 Temperature Pulse Rate 137 H 136 H 138 H Respiratory Rate 37 H 38 H 36 H Blood Pressure Pulse Oximetry 98 96 99 Oxygen Delivery Method Oxygen Flow Rate Fraction of Inspired Oxygen 08/08/24 12:20 08/08/24 12:20 08/08/24 12:22 Temperature Pulse Rate 137 H 138 H Respiratory Rate 32 H 34 H Blood Pressure 127/61 Pulse Oximetry 100 100 Oxygen Delivery Method Oxygen Flow Rate Fraction of Inspired Oxygen 08/08/24 12:24 08/08/24 12:26 08/08/24 12:28 Temperature Pulse Rate 139 H 141 H Respiratory Rate 34 H Blood Pressure 128/68 Pulse Oximetry 99 Oxygen Delivery Method Oxygen Flow Rate Fraction of Inspired Oxygen 08/08/24 12:28 08/08/24 12:30 08/08/24 12:30 Temperature Pulse Rate 137 H 133 H Respiratory Rate 32 H 0 L Blood Pressure 112/59 L Pulse Oximetry 100 100 Oxygen Delivery Method Oxygen Flow Rate Fraction of Inspired Oxygen 08/08/24 12:32 08/08/24 12:34 08/08/24 12:35 Temperature Pulse Rate 134 H 134 H Respiratory Rate Blood Pressure 98/54 L Pulse Oximetry 99 99 Oxygen Delivery Method Oxygen Flow Rate Fraction of Inspired Oxygen 08/08/24 12:35 08/08/24 12:36 08/08/24 12:36 Temperature Pulse Rate 133 H 132 H Respiratory Rate 32 H Blood Pressure 98/54 L Pulse Oximetry 99 99 Oxygen Delivery Method Oxygen Flow Rate Fraction of Inspired Oxygen 08/08/24 12:37 08/08/24 12:37 08/08/24 12:38 Temperature Pulse Rate 131 H 130 H Respiratory Rate 31 H 34 H Blood Pressure 100/50 L Pulse Oximetry 100 100 Oxygen Delivery Method Oxygen Flow Rate Fraction of Inspired Oxygen 08/08/24 12:40 08/08/24 12:40 08/08/24 12:41 Temperature Pulse Rate 130 H Respiratory Rate 28 H Blood Pressure 84/52 L 90/55 L Pulse Oximetry 100 Oxygen Delivery Method Oxygen Flow Rate Fraction of Inspired Oxygen 08/08/24 12:41 08/08/24 12:42 08/08/24 12:44 Temperature Pulse Rate 129 H 127 H 131 H Respiratory Rate 32 H 33 H 32 H Blood Pressure Pulse Oximetry 100 100 100 Oxygen Delivery Method Oxygen Flow Rate Fraction of Inspired Oxygen 08/08/24 12:45 08/08/24 12:45 08/08/24 12:46 Temperature Pulse Rate 128 H 128 H Respiratory Rate 29 H 29 H Blood Pressure 109/52 L Pulse Oximetry 100 99 Oxygen Delivery Method Oxygen Flow Rate Fraction of Inspired Oxygen 08/08/24 13:00 08/08/24 13:00 08/08/24 13:03 Temperature Pulse Rate 126 H Respiratory Rate 26 H Blood Pressure 112/55 L 107/55 L Pulse Oximetry 99 Oxygen Delivery Method Oxygen Flow Rate Fraction of Inspired Oxygen 08/08/24 13:03 08/08/24 13:06 08/08/24 13:06 Temperature Pulse Rate 123 H 122 H Respiratory Rate 29 H 25 H Blood Pressure 99/51 L Pulse Oximetry 98 100 Oxygen Delivery Method Oxygen Flow Rate Fraction of Inspired Oxygen 08/08/24 13:09 08/08/24 13:09 08/08/24 13:12 Temperature Pulse Rate 122 H Respiratory Rate 26 H Blood Pressure 100/53 L 103/52 L Pulse Oximetry 100 Oxygen Delivery Method Oxygen Flow Rate Fraction of Inspired Oxygen 08/08/24 13:12 08/08/24 13:15 08/08/24 13:15 Temperature Pulse Rate 120 H 119 H Respiratory Rate 22 25 H Blood Pressure 103/51 L Pulse Oximetry 99 100 Oxygen Delivery Method Oxygen Flow Rate Fraction of Inspired Oxygen 08/08/24 13:18 08/08/24 13:18 08/08/24 13:21 Temperature Pulse Rate 118 H Respiratory Rate 25 H Blood Pressure 104/51 L 103/54 L Pulse Oximetry 99 Oxygen Delivery Method BiPAP Oxygen Flow Rate Fraction of Inspired Oxygen 08/08/24 13:21 08/08/24 13:24 08/08/24 13:24 Temperature Pulse Rate 118 H 117 H Respiratory Rate 25 H 24 Blood Pressure 107/53 L Pulse Oximetry 100 100 Oxygen Delivery Method Oxygen Flow Rate Fraction of Inspired Oxygen 08/08/24 13:27 08/08/24 13:27 08/08/24 13:30 Temperature Pulse Rate 118 H Respiratory Rate 22 Blood Pressure 105/53 L 112/59 L Pulse Oximetry 100 Oxygen Delivery Method Oxygen Flow Rate Fraction of Inspired Oxygen 08/08/24 13:30 08/08/24 13:33 08/08/24 13:33 Temperature Pulse Rate 122 H 120 H Respiratory Rate 22 23 Blood Pressure 111/58 L Pulse Oximetry 100 100 Oxygen Delivery Method Oxygen Flow Rate Fraction of Inspired Oxygen 08/08/24 13:36 08/08/24 13:36 08/08/24 13:39 Temperature Pulse Rate 120 H Respiratory Rate 24 Blood Pressure 117/58 L 113/55 L Pulse Oximetry 100 Oxygen Delivery Method Oxygen Flow Rate Fraction of Inspired Oxygen 08/08/24 13:39 08/08/24 13:42 08/08/24 13:42 Temperature Pulse Rate 120 H 120 H Respiratory Rate 23 26 H Blood Pressure 122/57 L Pulse Oximetry 100 100 Oxygen Delivery Method Oxygen Flow Rate Fraction of Inspired Oxygen 08/08/24 13:45 08/08/24 13:45 08/08/24 13:46 Temperature Pulse Rate 120 H 120 H Respiratory Rate 26 H 22 Blood Pressure 113/59 L 113/59 L Pulse Oximetry 100 100 Oxygen Delivery Method Oxygen Flow Rate Fraction of Inspired Oxygen 08/08/24 14:00 08/08/24 14:00 08/08/24 14:06 Temperature Pulse Rate 122 H Respiratory Rate 28 H Blood Pressure 111/58 L 113/59 L Pulse Oximetry 100 Oxygen Delivery Method Oxygen Flow Rate Fraction of Inspired Oxygen 08/08/24 14:06 08/08/24 14:15 08/08/24 14:15 Temperature Pulse Rate 123 H 107 H Respiratory Rate 29 H 27 H Blood Pressure 119/59 L Pulse Oximetry 100 100 Oxygen Delivery Method Oxygen Flow Rate Fraction of Inspired Oxygen 08/08/24 14:18 08/08/24 14:18 08/08/24 14:22 Temperature Pulse Rate 115 H Respiratory Rate 28 H Blood Pressure 119/61 119/61 Pulse Oximetry 100 Oxygen Delivery Method Oxygen Flow Rate Fraction of Inspired Oxygen 45 08/08/24 14:30 08/08/24 14:30 08/08/24 14:45 Temperature Pulse Rate 118 H 120 H Respiratory Rate 26 H 26 H Blood Pressure 117/63 Pulse Oximetry 100 98 Oxygen Delivery Method Oxygen Flow Rate Fraction of Inspired Oxygen 08/08/24 14:45 08/08/24 15:00 08/08/24 15:00 Temperature Pulse Rate 120 H Respiratory Rate 26 H Blood Pressure 134/63 127/62 Pulse Oximetry 98 Oxygen Delivery Method Oxygen Flow Rate Fraction of Inspired Oxygen 08/08/24 15:15 08/08/24 15:15 08/08/24 15:30 Temperature Pulse Rate 121 H Respiratory Rate 25 H Blood Pressure 122/62 130/64 Pulse Oximetry 100 Oxygen Delivery Method Oxygen Flow Rate Fraction of Inspired Oxygen 08/08/24 15:30 08/08/24 15:45 08/08/24 15:45 Temperature Pulse Rate 117 H 116 H Respiratory Rate 24 23 Blood Pressure 139/66 Pulse Oximetry 100 98 Oxygen Delivery Method Oxygen Flow Rate Fraction of Inspired Oxygen 08/08/24 15:57 08/08/24 16:00 08/08/24 16:00 Temperature 96.9 F L Pulse Rate 116 H 115 H Respiratory Rate 15 25 H Blood Pressure 139/66 132/66 Pulse Oximetry 99 Oxygen Delivery Method Oxygen Flow Rate Fraction of Inspired Oxygen 08/08/24 16:14 08/08/24 16:15 08/08/24 16:15 Temperature 97.0 F L 97.0 F L Pulse Rate 118 H 118 H Respiratory Rate 18 18 Blood Pressure 134/70 134/70 134/70 Pulse Oximetry Oxygen Delivery Method Oxygen Flow Rate Fraction of Inspired Oxygen 08/08/24 16:15 08/08/24 16:30 08/08/24 16:30 Temperature Pulse Rate 117 H 114 H Respiratory Rate 23 22 Blood Pressure 143/73 H Pulse Oximetry 98 98 Oxygen Delivery Method Oxygen Flow Rate Fraction of Inspired Oxygen 08/08/24 16:45 08/08/24 16:45 08/08/24 16:59 Temperature 97.7 F Pulse Rate 113 H 120 H Respiratory Rate 23 22 Blood Pressure 143/76 H 143/83 H Pulse Oximetry 98 Oxygen Delivery Method Oxygen Flow Rate Fraction of Inspired Oxygen Fraction of Inspired Oxygen 45 Oxygen Delivery Method BiPAP Oxygen Flow Rate 16 Narrative Exam Narrative: GENERAL: This is an obese female, in severe respiratory distress, BiPAP mask in place, speaking 1-2 words between breaths with accessory muscle use. HEAD: Atraumatic. Normocephalic. No temporal or scalp tenderness. severe and her geniculate jannet. EYES: Pupils equal round and reactive. Extraocular motions intact. No scleral icterus. No injection or drainage. ENT: Mucous membranes pink and moist. NECK: Trachea midline. No JVD, bruits or lymphadenopathy. Supple, nontender, no meningeal signs. CARDIOVASCULAR: Regular rhythm, tachycardic, without audible murmur. RESPIRATORY: Diffuse coarse crackles all lung [place] anteriorly and posteriorly. GASTROINTESTINAL: Abdomen soft, non-tender, nondistended. EXTREMITIES: 2 to 3+ edema to upper thigh. NEUROLOGIC: Alert, oriented, speech fluent, full upper and lower motor strength, no focal deficits evident. DERMATOLOGIC: No rashes or skin lesions. Objective ECG Impression: Sinus tachycardia at 117bpm Left bundle branch block Imaging Chest x-ray: Radiologist's impression: Moderately enlarged cardiopericardial silhouette increased. Increased pulmonary vascular congestion with interstitial edema. New small bilateral pleural effusions. New moderate diffuse peribronchial thickening with diffuse alveolar opacities suspicious for multifocal pneumonia, bronchopneumonia, viral infection or other process. New mild bibasilar subsegmental atelectasis. Continued follow-up is needed. If symptoms persist or worsen, CT chest could be performed US - abdomen: Radiologist's impression: [id number] diffuse increased echogenicity of the liver. CTA Abdomen-pelvis: Radiologist's impression: 1. Congestive heart failure exacerbation. 2. No acute GI bleed identified. 3. No acute abdominal process. 4. Remote hysterectomy. Echocardiogram 07/17/2024:: Radiologist's impression: The study quality was technically difficult. The ejection fraction is estimated to be 50-55%. Diastolic function could not be accurately assessed due to unobtainable data. The right ventricle is normal in size and function. Mitral annular calcification with extension onto the posterior leaflet without significant mitral stenosis. Pulmonary artery pressures cannot be estimated because of the lack of a measurable TR jet velocity. Labs 08/08/24 12:10 08/08/24 12:10 Labs: Laboratory Results - last 24 hr 08/08/24 08/08/24 08/08/24 12:10 12:31 12:38 WBC 18.2 H RBC 3.29 L Hgb 7.1 L Hct 24.3 L MCV 74.0 L MCH 21.6 L MCHC 29.2 L RDW 19.0 H Plt Count 580 H Neut % (Auto) 83.3 H Lymph % (Auto) 11.8 L [place] % (Auto) 3.8 Eos % (Auto) 0.4 L Baso % (Auto) 0.7 Neut # (Auto) 23227 H Lymph # (Auto) 2100 [place] # (Auto) 700 Eos # (Auto) 100 Baso # (Auto) 100 PT 11.9 INR 1.0 APTT 29 ABG Sample Site Right radial ABG pH 7.31 L ABG pCO2 49.3 H ABG pO2 296 H* ABG HCO3 25 ABG Total CO2 25 ABG O2 Saturation 100 ABG Base Excess -1.6 Seamus Test Positive Respiration Rate 15 O2 Delivery Device Bipap Mode of Support Bi-level ventilation FiO2 % 75 % Pressure Support 16 PEEP or CPAP 6 Sodium 136 L Potassium 4.7 Chloride 100 Carbon Dioxide 22 BUN 36 H Creatinine 1.62 H Estimated GFR 35 L BUN/Creatinine Ratio 22.2 H Glucose 276 H Lactate 5.0 H* Calcium 9.6 Total Bilirubin 0.8 AST 47 H ALT 24 Alkaline Phosphatase 60 Total Creatine Kinase 126 Troponin I 0.084 H NT-Pro-B Natriuret Pep 1130 H Total Protein 8.0 Albumin 4.5 Globulin 3.5 Albumin/Globulin Ratio 1.3 Lipase 95 Procalcitonin 0.117 Urine Color Yellow Urine Appearance Clear Urine pH 5.0 Ur Specific [place] 1.020 Urine Protein Negative Urine Glucose (UA) Negative Urine Ketones Negative Urine Occult Blood Negative Urine Nitrate Negative Urine Bilirubin Negative Urine Urobilinogen 0.2 Ur Leukocyte Esterase Trace H Urine RBC 0-1/hpf Urine WBC 0-1/hpf Ur Squamous Epith Cells 1-5 /hpf Urine Bacteria Many (>30) H Ur Culture Indicated? Specimen cultured Vol Urine Centrifuged 10ml (spun) Chlamy pneumoniae PCR Adenovirus (PCR) B.parapertussis DNA PCR Coronavirus OC43 (PCR) Coronavirus HKU1 (PCR) Coronavirus 229E (PCR) SARS-CoV-2 (PCR) Coronavirus NL63 (PCR) Human Metapneumovir PCR Influenza Type A (PCR) Influenza Type B (PCR) M. pneumoniae (PCR) Parainfluenza 1 (PCR) Parainfluenza 2 (PCR) Parainfluenza 3 (PCR) Parainfluenza 4 (PCR) RSV (PCR) Entero/Rhino (PCR) Blood Type Antibody Screen Crossmatch 08/08/24 08/08/24 08/08/24 12:42 13:40 14:02 WBC RBC Hgb Hct MCV MCH MCHC RDW Plt Count Neut % (Auto) Lymph % (Auto) [place] % (Auto) Eos % (Auto) Baso % (Auto) Neut # (Auto) Lymph # (Auto) [place] # (Auto) Eos # (Auto) Baso # (Auto) PT INR APTT ABG Sample Site ABG pH ABG pCO2 ABG pO2 ABG HCO3 ABG Total CO2 ABG O2 Saturation ABG Base Excess [place] Test Respiration Rate O2 Delivery Device Mode of Support FiO2 % Pressure Support PEEP or CPAP Sodium Potassium Chloride Carbon Dioxide BUN Creatinine Estimated GFR BUN/Creatinine Ratio Glucose Lactate 4.2 H* Calcium Total Bilirubin AST ALT Alkaline Phosphatase Total Creatine Kinase Troponin I NT-Pro-B Natriuret Pep Total Protein Albumin Globulin Albumin/Globulin Ratio Lipase Procalcitonin Urine Color Urine Appearance Urine pH Ur Specific [place] Urine Protein Urine Glucose (UA) Urine Ketones Urine Occult Blood Urine Nitrate Urine Bilirubin Urine Urobilinogen Ur Leukocyte Esterase Urine RBC Urine WBC Ur Squamous Epith Cells Urine Bacteria Ur Culture Indicated? Vol Urine Centrifuged Chlamy pneumoniae PCR Not detected Adenovirus (PCR) Not detected B.parapertussis DNA PCR Not detected Coronavirus OC43 (PCR) Not detected Coronavirus HKU1 (PCR) Not detected Coronavirus 229E (PCR) Not detected SARS-CoV-2 (PCR) Not detected Coronavirus NL63 (PCR) Not detected Human Metapneumovir PCR Not detected Influenza Type A (PCR) Not detected Influenza Type B (PCR) Not detected M. pneumoniae (PCR) Not detected Parainfluenza 1 (PCR) Not detected Parainfluenza 2 (PCR) Not detected Parainfluenza 3 (PCR) Not detected Parainfluenza 4 (PCR) Not detected RSV (PCR) Not detected Entero/Rhino (PCR) Not detected Blood Type A Positive Antibody Screen Negative Crossmatch See Detail 08/08/24 15:32 WBC RBC Hgb Hct MCV MCH MCHC RDW Plt Count Neut % (Auto) Lymph % (Auto) [place] % (Auto) Eos % (Auto) Baso % (Auto) Neut # (Auto) Lymph # (Auto) [place] # (Auto) Eos # (Auto) Baso # (Auto) PT INR APTT ABG Sample Site ABG pH ABG pCO2 ABG pO2 ABG HCO3 ABG Total CO2 ABG O2 Saturation ABG Base Excess [place] Test Respiration Rate O2 Delivery Device Mode of Support FiO2 % Pressure Support PEEP or CPAP Sodium Potassium Chloride Carbon Dioxide BUN Creatinine Estimated GFR BUN/Creatinine Ratio Glucose Lactate Calcium Total Bilirubin AST ALT Alkaline Phosphatase Total Creatine Kinase Troponin I 0.698 H* NT-Pro-B Natriuret Pep Total Protein Albumin Globulin Albumin/Globulin Ratio Lipase Procalcitonin Urine Color Urine Appearance Urine pH Ur Specific [place] Urine Protein Urine Glucose (UA) Urine Ketones Urine Occult Blood Urine Nitrate Urine Bilirubin Urine Urobilinogen Ur Leukocyte Esterase Urine RBC Urine WBC Ur Squamous Epith Cells Urine Bacteria Ur Culture Indicated? Vol Urine Centrifuged Chlamy pneumoniae PCR Adenovirus (PCR) B.parapertussis DNA PCR Coronavirus OC43 (PCR) Coronavirus HKU1 (PCR) Coronavirus 229E (PCR) SARS-CoV-2 (PCR) Coronavirus NL63 (PCR) Human Metapneumovir PCR Influenza Type A (PCR) Influenza Type B (PCR) M. pneumoniae (PCR) Parainfluenza 1 (PCR) Parainfluenza 2 (PCR) Parainfluenza 3 (PCR) Parainfluenza 4 (PCR) RSV (PCR) Entero/Rhino (PCR) Blood Type Antibody Screen Crossmatch Assessment & Plan Assessment & Plan narrative: 1. Acute diastolic congestive heart failure. Admit to ICU and treat with BiPAP, furosemide and nitroglycerin infusions, and monitor closely. 2. Bilateral pulmonary infiltrates, severe leukocytosis, possible community-acquired pneumonia. Treat with IV Zosyn. 3. Elevated troponin, consistent with myocardial ischemia. Monitor serial cardiac enzymes. Consider transfer to a tertiary facility if significant myocardial ischemia is present. 4. Chronic left bundle-branch block. 5. Acute hypoxic respiratory failure, multifactorial due to above issues. Treat with BiPAP in ICU setting. Treat above factors. 6. Microcytic anemia, probable chronic GI bleeding. Transfuse 1 unit packed red blood cell in the emergency department. Follow closely given volume overload status. 7. Acute kidney injury. Follow with treatment of congestive heart failure. Possible prerenal due to decreased cardiac output state. 8. Sepsis with elevated serum lactate. Monitor with sepsis bundle protocol. 9. Diabetes mellitus. Monitor with sliding scale insulin coverage. 10. Hypertension. Hold antihypertensives. 11. Hyperlipidemia. Hold atorvastatin while NPO on BiPA P. 12. DVT prophylaxis. Place sequential compression devices. Avoid anticoagulation. 13. Code status: Full code. The patient states that she may reconsider this upon further discussion with her . Plan: -ICU admission -BiPAP -furosemide infusion -nitroglycerin infusion -serial cardiac enzymes and hematocrits -1 unit packed red blood cell transfusion -sepsis protocol -full code status Time-Based Coding :: 60 minutes of critical care time spent with the patient so far today. Quality MIPS - Admit I confirm the patient?s Advance Care Plan is present, Code status is documented, Surrogate decision maker is in patient?s record [If Yes, STOP here]: Yes MIPS - Meds 'Current medications' to include all prescriptions, [id number] products, herbals, cannabis/cannabidiol products, and vitamin/mineral/dietary (nutritional) supplements. I have utilized all available resources to obtain, update, or review the patient?s current medications. [If Yes, STOP here]: Yes PROFEE Charge Codes Critical Care: [id number]
[2024-08-08] MEDS: FUROSEMIDE 100 MG in SODIUM CHLORIDE 0.9% 50 ML 120 MG IV (17:41)
--- NOTE | 2024-08-08 17:58 | PC.NURSE ---
rbcs transfusing without incident upon transfer to icu.
[2024-08-08] MEDS: NITROGLYCERIN 50 MG/250 ML INFUS..BTL IV (18:21)
[2024-08-08 18:32] LABS: Allen Test for ABG Passed? Positive; Base Excess ABG 1.4 mmol/L (-2-3); Blood Gas Collection Site Left Radial; Delivery System BiPAP; HCO3 ABG 26 mmol/L (23-27); Oxygen Saturation ABG 96 % (95-100); PCO2 ABG 41.4 mmHg (35-45); PEEP 6; PO2 ABG 81 mmHg (80-100); Respiratory Rate 15; TCO2 ABG 26 mmol/L (23-27); pH ABG 7.41 (7.35-7.45)
--- NOTE | 2024-08-08 19:27 | PC.ADMIT ---
Addendum entered by Areli Alex R.N. 08/08/24 19:31: BBB, pt shows no signs of distress, no chest pain complaints. Oriented to room and call light system, bed low and locked, bed alarm active, no further needs at this time, will continue to monitor. Original Note: [email or web address] Admission Note: Pt arrived via gurney on 6LNC, intermittent confusion, RT at bedside O2 sats 82%, pt placed back on BIPAP 35% 16/6, Sats 97%. Pt hypertensive, Provider at bedside new orders placed for Nitro gtt and Lasix gtt. PRBC transfusing as ordered, started in ED. Pt connected to all monitoring equipment, tele shows ST with The patient,Mary Small,63 y/o, was given written information regarding hospital policies, unit procedures and contact persons. Patient's smoking status: Former smoker. Vital Signs - 8 hr 08/08/24 12:03 08/08/24 12:04 08/08/24 12:04 Temperature Pulse Rate 136 H 140 H Respiratory Rate 36 H 36 H Blood Pressure 132/61 Pulse Oximetry 84 L 79 L Oxygen Delivery Method Nasal Cannula Oxygen Flow Rate 6 Fraction of Inspired Oxygen 08/08/24 12:05 08/08/24 12:06 08/08/24 12:08 Temperature 98.5 F Pulse Rate 145 H 145 H 144 H Respiratory Rate 37 H 37 H 35 H Blood Pressure 132/61 Pulse Oximetry 80 L 99 98 Oxygen Delivery Method Aerosol Mask BiPAP Oxygen Flow Rate 16 Fraction of Inspired Oxygen 08/08/24 12:10 08/08/24 12:12 08/08/24 12:13 Temperature Pulse Rate 140 H 138 H Respiratory Rate 36 H 36 H Blood Pressure Pulse Oximetry 93 97 Oxygen Delivery Method Oxygen Flow Rate Fraction of Inspired Oxygen 75 08/08/24 12:14 08/08/24 12:14 08/08/24 12:15 Temperature Pulse Rate 137 H Respiratory Rate 34 H Blood Pressure 132/63 131/67 Pulse Oximetry 98 Oxygen Delivery Method Oxygen Flow Rate Fraction of Inspired Oxygen 08/08/24 12:15 08/08/24 12:16 08/08/24 12:18 Temperature Pulse Rate 137 H 136 H 138 H Respiratory Rate 37 H 38 H 36 H Blood Pressure Pulse Oximetry 98 96 99 Oxygen Delivery Method Oxygen Flow Rate Fraction of Inspired Oxygen 08/08/24 12:20 08/08/24 12:20 08/08/24 12:22 Temperature Pulse Rate 137 H 138 H Respiratory Rate 32 H 34 H Blood Pressure 127/61 Pulse Oximetry 100 100 Oxygen Delivery Method Oxygen Flow Rate Fraction of Inspired Oxygen 08/08/24 12:24 08/08/24 12:26 08/08/24 12:28 Temperature Pulse Rate 139 H 141 H Respiratory Rate 34 H Blood Pressure 128/68 Pulse Oximetry 99 Oxygen Delivery Method Oxygen Flow Rate Fraction of Inspired Oxygen 08/08/24 12:28 08/08/24 12:30 08/08/24 12:30 Temperature Pulse Rate 137 H 133 H Respiratory Rate 32 H 0 L Blood Pressure 112/59 L Pulse Oximetry 100 100 Oxygen Delivery Method Oxygen Flow Rate Fraction of Inspired Oxygen 08/08/24 12:32 08/08/24 12:34 08/08/24 12:35 Temperature Pulse Rate 134 H 134 H Respiratory Rate Blood Pressure 98/54 L Pulse Oximetry 99 99 Oxygen Delivery Method Oxygen Flow Rate Fraction of Inspired Oxygen 08/08/24 12:35 08/08/24 12:36 08/08/24 12:36 Temperature Pulse Rate 133 H 132 H Respiratory Rate 32 H Blood Pressure 98/54 L Pulse Oximetry 99 99 Oxygen Delivery Method Oxygen Flow Rate Fraction of Inspired Oxygen 08/08/24 12:37 08/08/24 12:37 08/08/24 12:38 Temperature Pulse Rate 131 H 130 H Respiratory Rate 31 H 34 H Blood Pressure 100/50 L Pulse Oximetry 100 100 Oxygen Delivery Method Oxygen Flow Rate Fraction of Inspired Oxygen 08/08/24 12:40 08/08/24 12:40 08/08/24 12:41 Temperature Pulse Rate 130 H Respiratory Rate 28 H Blood Pressure 84/52 L 90/55 L Pulse Oximetry 100 Oxygen Delivery Method Oxygen Flow Rate Fraction of Inspired Oxygen 08/08/24 12:41 08/08/24 12:42 08/08/24 12:44 Temperature Pulse Rate 129 H 127 H 131 H Respiratory Rate 32 H 33 H 32 H Blood Pressure Pulse Oximetry 100 100 100 Oxygen Delivery Method Oxygen Flow Rate Fraction of Inspired Oxygen 08/08/24 12:45 08/08/24 12:45 08/08/24 12:46 Temperature Pulse Rate 128 H 128 H Respiratory Rate 29 H 29 H Blood Pressure 109/52 L Pulse Oximetry 100 99 Oxygen Delivery Method Oxygen Flow Rate Fraction of Inspired Oxygen 08/08/24 13:00 08/08/24 13:00 08/08/24 13:03 Temperature Pulse Rate 126 H Respiratory Rate 26 H Blood Pressure 112/55 L 107/55 L Pulse Oximetry 99 Oxygen Delivery Method Oxygen Flow Rate Fraction of Inspired Oxygen 08/08/24 13:03 08/08/24 13:06 08/08/24 13:06 Temperature Pulse Rate 123 H 122 H Respiratory Rate 29 H 25 H Blood Pressure 99/51 L Pulse Oximetry 98 100 Oxygen Delivery Method Oxygen Flow Rate Fraction of Inspired Oxygen 08/08/24 13:09 08/08/24 13:09 08/08/24 13:12 Temperature Pulse Rate 122 H Respiratory Rate 26 H Blood Pressure 100/53 L 103/52 L Pulse Oximetry 100 Oxygen Delivery Method Oxygen Flow Rate Fraction of Inspired Oxygen 08/08/24 13:12 08/08/24 13:15 08/08/24 13:15 Temperature Pulse Rate 120 H 119 H Respiratory Rate 22 25 H Blood Pressure 103/51 L Pulse Oximetry 99 100 Oxygen Delivery Method Oxygen Flow Rate Fraction of Inspired Oxygen 08/08/24 13:18 08/08/24 13:18 08/08/24 13:21 Temperature Pulse Rate 118 H Respiratory Rate 25 H Blood Pressure 104/51 L 103/54 L Pulse Oximetry 99 Oxygen Delivery Method BiPAP Oxygen Flow Rate Fraction of Inspired Oxygen 08/08/24 13:21 08/08/24 13:24 08/08/24 13:24 Temperature Pulse Rate 118 H 117 H Respiratory Rate 25 H 24 Blood Pressure 107/53 L Pulse Oximetry 100 100 Oxygen Delivery Method Oxygen Flow Rate Fraction of Inspired Oxygen 08/08/24 13:27 08/08/24 13:27 08/08/24 13:30 Temperature Pulse Rate 118 H Respiratory Rate 22 Blood Pressure 105/53 L 112/59 L Pulse Oximetry 100 Oxygen Delivery Method Oxygen Flow Rate Fraction of Inspired Oxygen 08/08/24 13:30 08/08/24 13:33 08/08/24 13:33 Temperature Pulse Rate 122 H 120 H Respiratory Rate 22 23 Blood Pressure 111/58 L Pulse Oximetry 100 100 Oxygen Delivery Method Oxygen Flow Rate Fraction of Inspired Oxygen 08/08/24 13:36 08/08/24 13:36 08/08/24 13:39 Temperature Pulse Rate 120 H Respiratory Rate 24 Blood Pressure 117/58 L 113/55 L Pulse Oximetry 100 Oxygen Delivery Method Oxygen Flow Rate Fraction of Inspired Oxygen 08/08/24 13:39 08/08/24 13:42 08/08/24 13:42 Temperature Pulse Rate 120 H 120 H Respiratory Rate 23 26 H Blood Pressure 122/57 L Pulse Oximetry 100 100 Oxygen Delivery Method Oxygen Flow Rate Fraction of Inspired Oxygen 08/08/24 13:45 08/08/24 13:45 08/08/24 13:46 Temperature Pulse Rate 120 H 120 H Respiratory Rate 26 H 22 Blood Pressure 113/59 L 113/59 L Pulse Oximetry 100 100 Oxygen Delivery Method Oxygen Flow Rate Fraction of Inspired Oxygen 08/08/24 14:00 08/08/24 14:00 08/08/24 14:06 Temperature Pulse Rate 122 H Respiratory Rate 28 H Blood Pressure 111/58 L 113/59 L Pulse Oximetry 100 Oxygen Delivery Method Oxygen Flow Rate Fraction of Inspired Oxygen 08/08/24 14:06 08/08/24 14:15 08/08/24 14:15 Temperature Pulse Rate 123 H 107 H Respiratory Rate 29 H 27 H Blood Pressure 119/59 L Pulse Oximetry 100 100 Oxygen Delivery Method Oxygen Flow Rate Fraction of Inspired Oxygen 08/08/24 14:18 08/08/24 14:18 08/08/24 14:22 Temperature Pulse Rate 115 H Respiratory Rate 28 H Blood Pressure 119/61 119/61 Pulse Oximetry 100 Oxygen Delivery Method Oxygen Flow Rate Fraction of Inspired Oxygen 45 08/08/24 14:30 08/08/24 14:30 08/08/24 14:45 Temperature Pulse Rate 118 H 120 H Respiratory Rate 26 H 26 H Blood Pressure 117/63 Pulse Oximetry 100 98 Oxygen Delivery Method Oxygen Flow Rate Fraction of Inspired Oxygen 08/08/24 14:45 08/08/24 15:00 08/08/24 15:00 Temperature Pulse Rate 120 H Respiratory Rate 26 H Blood Pressure 134/63 127/62 Pulse Oximetry 98 Oxygen Delivery Method Oxygen Flow Rate Fraction of Inspired Oxygen 08/08/24 15:15 08/08/24 15:15 08/08/24 15:30 Temperature Pulse Rate 121 H Respiratory Rate 25 H Blood Pressure 122/62 130/64 Pulse Oximetry 100 Oxygen Delivery Method Oxygen Flow Rate Fraction of Inspired Oxygen 08/08/24 15:30 08/08/24 15:45 08/08/24 15:45 Temperature Pulse Rate 117 H 116 H Respiratory Rate 24 23 Blood Pressure 139/66 Pulse Oximetry 100 98 Oxygen Delivery Method Oxygen Flow Rate Fraction of Inspired Oxygen 08/08/24 15:57 08/08/24 16:00 08/08/24 16:00 Temperature 96.9 F L Pulse Rate 116 H 115 H Respiratory Rate 15 25 H Blood Pressure 139/66 132/66 Pulse Oximetry 99 Oxygen Delivery Method Oxygen Flow Rate Fraction of Inspired Oxygen 08/08/24 16:14 08/08/24 16:15 08/08/24 16:15 Temperature 97.0 F L 97.0 F L Pulse Rate 118 H 118 H Respiratory Rate 18 18 Blood Pressure 134/70 134/70 134/70 Pulse Oximetry Oxygen Delivery Method Oxygen Flow Rate Fraction of Inspired Oxygen 08/08/24 16:15 08/08/24 16:30 08/08/24 16:30 Temperature Pulse Rate 117 H 114 H Respiratory Rate 23 22 Blood Pressure 143/73 H Pulse Oximetry 98 98 Oxygen Delivery Method Oxygen Flow Rate Fraction of Inspired Oxygen 08/08/24 16:45 08/08/24 16:45 08/08/24 16:59 Temperature 97.7 F Pulse Rate 113 H 120 H Respiratory Rate 23 22 Blood Pressure 143/76 H 143/83 H Pulse Oximetry 98 Oxygen Delivery Method Oxygen Flow Rate Fraction of Inspired Oxygen 08/08/24 17:00 08/08/24 17:15 08/08/24 17:19 Temperature Pulse Rate 120 H 131 H 128 H Respiratory Rate 25 H 22 24 Blood Pressure 145/83 H 182/76 H Pulse Oximetry 90 L 90 L 96 Oxygen Delivery Method BiPAP Oxygen Flow Rate Fraction of Inspired Oxygen 08/08/24 17:30 08/08/24 17:30 08/08/24 17:30 Temperature Pulse Rate 122 H Respiratory Rate 31 H Blood Pressure 182/76 H 169/71 H Pulse Oximetry 97 Oxygen Delivery Method Oxygen Flow Rate Fraction of Inspired Oxygen 35 08/08/24 17:42 08/08/24 17:46 08/08/24 18:00 Temperature 97.2 F L Pulse Rate 121 H Respiratory Rate 28 H Blood Pressure Pulse Oximetry 97 Oxygen Delivery Method BiPAP Oxygen Flow Rate Fraction of Inspired Oxygen 08/08/24 18:01 08/08/24 18:01 08/08/24 18:15 Temperature Pulse Rate 122 H 119 H Respiratory Rate 31 H 26 H Blood Pressure 169/64 H Pulse Oximetry 97 96 Oxygen Delivery Method Oxygen Flow Rate Fraction of Inspired Oxygen 08/08/24 18:30 08/08/24 18:30 08/08/24 18:37 Temperature Pulse Rate 115 H Respiratory Rate 27 H Blood Pressure 147/67 H 147/67 H Pulse Oximetry 97 Oxygen Delivery Method Oxygen Flow Rate Fraction of Inspired Oxygen 35 08/08/24 18:45 08/08/24 19:00 08/08/24 19:00 Temperature Pulse Rate 116 H 113 H Respiratory Rate 27 H 26 H Blood Pressure 168/79 H Pulse Oximetry 97 98 Oxygen Delivery Method Oxygen Flow Rate Fraction of Inspired Oxygen 08/08/24 19:15 08/08/24 19:24 Temperature 97.5 F L Pulse Rate 113 H 116 H Respiratory Rate 32 H 32 H Blood Pressure 167/79 H Pulse Oximetry 98 Oxygen Delivery Method Oxygen Flow Rate Fraction of Inspired Oxygen
[2024-08-08 19:44] LABS: Lactate (Lactic Acid) 2.5 mmol/L (0.7-2.1)
[2024-08-08] MEDS: PIPERACILLIN/TAZO 3.375 GM in SODIUM CHLORIDE 0.9% 100 ML IV (19:58)
[2024-08-08] MEDS: INSULIN LISPRO 100 UNIT/ML 3ML VIAL SUBCUT (20:11)
[2024-08-08] MEDS: HYDROMORPHONE 0.5 MG INJ IV ×2 (20:20→22:13)
[2024-08-08 20:54] LABS: Reflexed Lactate in 2 Hours Y
[2024-08-08] MEDS: INSULIN GLARGINE 100 UNIT/ML 3ML PEN 52 UNIT SUBCUT (22:00)
[2024-08-08 22:07] LABS: Lactate 2HR (Lactic Acid Rflx) 2.4 mmol/L (0.7-2.1)
--- NOTE | 2024-08-08 23:14 | EKG_ITS ---
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
[2024-08-08 23:23] LABS: MRSA (Nasal) PCR NOT DETECTED (Not Detect)
--- NOTE | 2024-08-08 23:46 | DI.ECHO.S_ITS ---
[facility]---------+ [facility] : : [address] : : [place] : : [id number] : : Phone: [phone] Echocardiogram Report + + :Name: KEON SOLANO Study Date: 08/09/2024 Height: 67 in : :Hospital ReadingLocation: Weight: 252 lb : : Gender: Female BSA: 2.2 m2 : :: 1960 Age: 63 yrs BP: 134/64 mmHg: :Reason For Study: ELEVATED TROPONIN : :Ordering Physician: BRADFORD, : :DHAVAL MAHONEY Performed By: Aure Chavarria : :Referring: DHAVAL FELDER MD : + + Interpretation Summary Limited Echo: 1) Normal left ventricular size with mildly reduced systolic function (EF 45- 50%). 2) There is a significant dyssynchronous contraction pattern, consistent with a conduction abnormality. 3) The right ventricle grossly appears normal in size with probable normal systolic function. 4) Compared to the Echo done 07/17/2024, LVEF has decreased slightly from 50- 55% to 45-50% on this study. Procedure: Images were not obtained from all of the standard acoustic windows due to the limited scope of the study. The study quality was technically difficult. Comparison is made with the echocardiogram of 07/17/2024. A contrast injection of Definity was performed to improve assessment of LV function. The patient had a bundle branch block rhythm during the exam. The heart rate ranged between 93-112 bpm during the study. Left Ventricle: The left ventricle is normal in size. Left ventricular wall thickness is mildly increased. The ejection fraction is estimated to be 45- 50%. There is a significant dyssynchronous contraction pattern, consistent with a conduction abnormality. Right Ventricle: The right ventricle grossly appears normal in size with probable normal systolic function. Pericardium/ Pleura There is no pericardial effusion. There is no pleural effusion. MMode/2D Measurements & Calculations LVIDd: 5.6 cm LVIDs: 4.5 cm FS: 19.8 % IVSd: 1.1 cm LVPWd: 1.1 cm LV wolfe. diameter/BSA (cm/m^2): 2.5 LV sys. diameter/BSA (cm/m^2): 2.0 Reading Physician:10:53 AM
--- NOTE | 2024-08-08 23:51 | P.EN_ITS ---
Event Note Event Note (Rapid Response, Code, or fall): Was notified by patient's nurse that trop came back 13 from 0.6. Patient is hemodynamically stable on Bipap and denies any chest pain. 1 unit of pRBC transfused due to hemoglobin of 7.1. No clear source at this time and patient has no active sign of bleeding. Repeat STAT EKG ord ered shows sinus tach but no clear sign of ischemia. I did talk to principal gifts officer personal care service provider Dr. Wang who recommmended that we continue to trend trop and get echo in AM. At this point, Dr. Wang does not think we can add any anticoagulation due to severe anemia. Dr. Wang recommended that we continue to treat underlying anemia, CHF exacerbation and possible pneumonia. I have added pantoprazole 40mg BID first dose now. Will also get stat H/H post transfusion to keep Hb > [address] Wang. Per Dr. Wang, patient does not need to be transfer at this point but to continue with current recommendation as above.
[2024-08-08 23:53] LABS: Hemoglobin 7.7 g/dL (12.0-16.0)
[2024-08-09] VITALS (105 sets, daily range): BP systolic 117–157; BP diastolic 51–72; PULSE 87–115; RESP 13–31; TEMP 36.1–36.6; O2SAT 87–100
[2024-08-09 00:13] LABS: Lactate (Lactic Acid) 2.6 mmol/L (0.7-2.1)
[2024-08-09] MEDS: PANTOPRAZOLE DR 40 MG TABLET PO ×3 (00:19→20:57)
[2024-08-09] MEDS: FUROSEMIDE 40 MG/4 ML VIAL IV (00:45)
[2024-08-09] MEDS: HYDROMORPHONE 0.5 MG INJ IV ×4 (01:06→23:51)
[2024-08-09] MEDS: INSULIN LISPRO 100 UNIT/ML 3ML VIAL SUBCUT ×2 (01:24→06:45)
[2024-08-09 01:27] LABS: Reflexed Lactate in 2 Hours Y
[2024-08-09] MEDS: PIPERACILLIN/TAZO 3.375 GM in SODIUM CHLORIDE 0.9% 100 ML IV ×3 (03:05→18:11)
[2024-08-09 04:27] LABS: Add Manual Diff / Slide Review NO; Basophils Absolute Auto 0 /uL (0-100); Basophils Percent Auto 0.3 % (0-2); Eosinophils Absolute Auto 0 /uL (0-450); Hematocrit 25.9 % (36-46); Hemoglobin 8.4 g/dL (12.0-16.0); Lymphocytes Absolute Auto 800 /uL (1100-4500); Mean Corpuscular HGB Conc 32.4 % (30-36); Mean Corpuscular Hemoglobin 24.3 PG (26-34); Monocytes Absolute Auto 900 /uL (0-900); Neutrophils Absolute Auto 11200 /uL (1500-7000); Neutrophils Percent Auto 86.7 % (50-75); Platelet Count 390 X10^3/uL (150-400); Red Blood Cell Count 3.45 X10^6/uL (4.0-5.2); Red Cell Distribution Width 19.9 % (11.6-14.8)
[2024-08-09 04:29] LABS: BUN Creatinine Ratio 20.5 (6-22); Blood Urea Nitrogen 38 mg/dL (7-17); Calcium 9.4 mg/dL (8.4-10.2); Carbon Dioxide 30 mmol/L (22-32); Chloride 99 mmol/L (98-107); Estimated Glomerular Filt Rate 30 mL/min (>60); Glucose 222 mg/dL (80-110); HEMOLYSIS < 15 (0-50); Potassium 4.7 mmol/L (3.4-5.1); Sodium 136 mmol/L (137-145)
--- NOTE | 2024-08-09 05:00 | DI.RAD.S_ITS ---
PROCEDURE: XR CHEST 1V INDICATIONS: CHF TECHNIQUE: One view of the chest was acquired. COMPARISON: [facility], CR, XR CHEST 1V, 08/08/2024, 12:03. FINDINGS: Moderately enlarged cardiopericardial silhouette unchanged. Moderately prominent geovanni, pulmonary vascular congestion and interstitial edema mildly decreased. Underlying prominent hilar lymph nodes not excluded. Small bilateral pleural effusions or pleural thickening unchanged. Moderate diffuse peribronchial thickening with diffuse alveolar opacities suspicious for multifocal pneumonia, bronchopneumonia, viral infection or other process unchanged. Mild bibasilar subsegmental atelectasis unchanged. Moderate calcifications of the aortic arch unchanged. No pneumothorax IMPRESSION: Mildly decreased pulmonary vascular congestion and interstitial edema as discussed above. Remainder of the exam unchanged. Continued follow-up is needed. Dictated by: Edward Colunga M.D. on 08/09/2024 at 8:44 Approved by: Edward Colunga M.D. on 08/09/2024 at 8:50
--- NOTE | 2024-08-09 05:08 | PC.NURSE ---
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 BBB. EKG repeated after troponin went from 0.698 to 13.0 - unchanged from previous. BP high - nitro gtt titrated to keep SBP <140 GI: NPO d/t pt reporting black tarry stools 3 days ago. No BM here but stated last BM 08/08 was normal. Blood sugars remain elevated in 200s. : Luna in place d/t lasix administration, good output Repeated hgb was still low at 7.7 so another unit PRBC given and hgb increased to 8.4 Plan for today is echo and continue to trend troponins
--- NOTE | 2024-08-09 07:33 | P.PN_ITS ---
Subjective Subjective Interval history: 63 year old woman under the primary care of Dr. Humza Ferrer with a history of diastolic congestive heart failure, multiple strokes with chronic right-sided weakness and long-term variably controlled diabetes presents with onset of significant increased shortness of breath, abdominal discomfort, swelling and increased lower extremity edema. She notes that for the past 9 months she has had orthopnea symptoms and sleeps in a recliner, with chronic refractory lower extremity edema. She has been followed by Cardiology on diuretic therapy. She was found to be hypoxic in the field with oxygen saturations in the 70s 80s% range, misread 6 L of nasal cannula oxygen and brought to the emergency department. She was placed on BiPAP due to progressive hypoxemia, administered IV furosemide and transferred to the ICU. Bumped her troponin overnight. On BiPAP. She had rectal bleeding on admission. S: She denies chest pain, or dyspnea. She did have melena for 2 days, 2 days ago. No current bleeding. No epigastric abdominal pain. Case discussed with Cardiology overnight who recommended medical management. Her regular information security specialist is Dr. Bolden at [facility]. Exam Vital Signs (past 8 hours): - 08/08/24 23:45 08/09/24 00:00 08/09/24 00:00 Temperature Pulse Rate 104 H 100 H Respiratory Rate 20 17 Blood Pressure 136/63 Pulse Oximetry 97 97 Oxygen Delivery Method Oxygen Flow Rate Fraction of Inspired Oxygen 08/09/24 00:11 08/09/24 00:11 08/09/24 00:15 Temperature Pulse Rate 98 H Respiratory Rate 16 Blood Pressure Pulse Oximetry 95 Oxygen Delivery Method BiPAP Oxygen Flow Rate Fraction of Inspired Oxygen 25 08/09/24 00:30 08/09/24 00:30 08/09/24 00:41 Temperature Pulse Rate 101 H Respiratory Rate 20 Blood Pressure 154/72 H 146/67 H Pulse Oximetry 93 Oxygen Delivery Method Oxygen Flow Rate Fraction of Inspired Oxygen 08/09/24 00:41 08/09/24 00:43 08/09/24 00:45 Temperature 97 F L Pulse Rate 100 H 97 H 99 H Respiratory Rate 17 15 17 Blood Pressure 146/67 H Pulse Oximetry 95 95 Oxygen Delivery Method Oxygen Flow Rate Fraction of Inspired Oxygen 08/09/24 00:59 08/09/24 01:00 08/09/24 01:00 Temperature 97 F L 97 F L Pulse Rate 102 H 99 H Respiratory Rate 17 17 Blood Pressure 147/63 H 147/63 H 147/63 H Pulse Oximetry 95 Oxygen Delivery Method Oxygen Flow Rate Fraction of Inspired Oxygen 08/09/24 01:00 08/09/24 01:15 08/09/24 01:15 Temperature Pulse Rate 105 H 98 H Respiratory Rate 21 16 Blood Pressure 137/61 Pulse Oximetry 93 92 Oxygen Delivery Method Oxygen Flow Rate Fraction of Inspired Oxygen 08/09/24 01:30 08/09/24 01:30 08/09/24 01:40 Temperature Pulse Rate 101 H Respiratory Rate 16 Blood Pressure 144/65 H 144/65 H Pulse Oximetry 92 Oxygen Delivery Method Oxygen Flow Rate Fraction of Inspired Oxygen 35 08/09/24 01:45 08/09/24 01:45 08/09/24 02:00 Temperature Pulse Rate 97 H 97 H Respiratory Rate 16 18 Blood Pressure 129/58 L 127/51 L Pulse Oximetry 93 93 Oxygen Delivery Method Oxygen Flow Rate Fraction of Inspired Oxygen 08/09/24 02:00 08/09/24 02:00 08/09/24 02:15 Temperature Pulse Rate 96 H Respiratory Rate 16 Blood Pressure 127/58 L 129/62 Pulse Oximetry 92 Oxygen Delivery Method Oxygen Flow Rate Fraction of Inspired Oxygen 08/09/24 02:15 08/09/24 02:30 08/09/24 02:30 Temperature Pulse Rate 97 H 93 H Respiratory Rate 17 16 Blood Pressure 124/59 L Pulse Oximetry 93 94 Oxygen Delivery Method Oxygen Flow Rate Fraction of Inspired Oxygen 08/09/24 02:45 08/09/24 02:45 08/09/24 02:54 Temperature Pulse Rate 97 H Respiratory Rate 21 Blood Pressure 123/67 Pulse Oximetry 95 96 Oxygen Delivery Method Oxygen Flow Rate 3 Fraction of Inspired Oxygen 08/09/24 03:00 08/09/24 03:00 08/09/24 03:00 Temperature Pulse Rate 92 H Respiratory Rate 16 Blood Pressure 130/70 Pulse Oximetry 96 Oxygen Delivery Method Nasal Cannula Oxygen Flow Rate 3 Fraction of Inspired Oxygen 32 08/09/24 03:04 08/09/24 03:16 08/09/24 03:16 Temperature 97.4 F L Pulse Rate 91 H 96 H Respiratory Rate 27 H 27 H Blood Pressure 130/70 152/72 H Pulse Oximetry 96 Oxygen Delivery Method Oxygen Flow Rate Fraction of Inspired Oxygen 08/09/24 03:30 08/09/24 03:45 08/09/24 04:00 Temperature Pulse Rate 91 H 91 H Respiratory Rate 16 16 Blood Pressure 140/66 Pulse Oximetry 97 97 Oxygen Delivery Method Oxygen Flow Rate Fraction of Inspired Oxygen 08/09/24 04:00 08/09/24 05:00 08/09/24 06:00 Temperature Pulse Rate 92 H 95 H Respiratory Rate 17 Blood Pressure 132/60 134/64 Pulse Oximetry 97 97 Oxygen Delivery Method Oxygen Flow Rate 1 Fraction of Inspired Oxygen Fraction of Inspired Oxygen 32 Oxygen Delivery Method Nasal Cannula Oxygen Flow Rate 1 Narrative Exam Narrative: NAD, alert and oriented. Fluent speech. Dyspneic with talking, on oxygen 4 L nasal cannula. Lungs are clear, normal rate and effort. Heart is regular, no murmur gallop or rub. Abdomen is soft, non distended. Extremities are with 2+ edema. Objective ECG Impression: NSR, LBBB Labs 08/09/24 03:55 08/09/24 03:55 Labs: Laboratory Results - last 24 hr 08/08/24 08/08/24 08/08/24 12:10 12:31 12:38 WBC 18.2 H RBC 3.29 L Hgb 7.1 L Hct 24.3 L MCV 74.0 L MCH 21.6 L MCHC 29.2 L RDW 19.0 H Plt Count 580 H Neut % (Auto) 83.3 H Lymph % (Auto) 11.8 L Bent % (Auto) 3.8 Eos % (Auto) 0.4 L Baso % (Auto) 0.7 Neut # (Auto) 91074 H Lymph # (Auto) 2100 Bent # (Auto) 700 Eos # (Auto) 100 Baso # (Auto) 100 PT 11.9 INR 1.0 APTT 29 ABG Sample Site Right radial ABG pH 7.31 L ABG pCO2 49.3 H ABG pO2 296 H* ABG HCO3 25 ABG Total CO2 25 ABG O2 Saturation 100 ABG Base Excess -1.6 Seamus Test Positive Respiration Rate 15 O2 Delivery Device Bipap Mode of Support Bi-level ventilation FiO2 % 75 % Pressure Support 16 PEEP or CPAP 6 Sodium 136 L Potassium 4.7 Chloride 100 Carbon Dioxide 22 BUN 36 H Creatinine 1.62 H Estimated GFR 35 L BUN/Creatinine Ratio 22.2 H Glucose 276 H Lactate 5.0 H* Calcium 9.6 Total Bilirubin 0.8 AST 47 H ALT 24 Alkaline Phosphatase 60 Total Creatine Kinase 126 Troponin I 0.084 H NT-Pro-B Natriuret Pep 1130 H Total Protein 8.0 Albumin 4.5 Globulin 3.5 Albumin/Globulin Ratio 1.3 Lipase 95 Procalcitonin 0.117 Urine Color Yellow Urine Appearance Clear Urine pH 5.0 Ur Specific [place] 1.020 Urine Protein Negative Urine Glucose (UA) Negative Urine Ketones Negative Urine Occult Blood Negative Urine Nitrate Negative Urine Bilirubin Negative Urine Urobilinogen 0.2 Ur Leukocyte Esterase Trace H Urine RBC 0-1/hpf Urine WBC 0-1/hpf Ur Squamous Epith Cells 1-5 /hpf Urine Bacteria Many (>30) H Ur Culture Indicated? Specimen cultured Vol Urine Centrifuged 10ml (spun) Nasal Screen MRSA (PCR) Chlamy pneumoniae PCR Adenovirus (PCR) B.parapertussis DNA PCR Coronavirus OC43 (PCR) Coronavirus HKU1 (PCR) Coronavirus 229E (PCR) SARS-CoV-2 (PCR) Coronavirus NL63 (PCR) Human Metapneumovir PCR Influenza Type A (PCR) Influenza Type B (PCR) M. pneumoniae (PCR) Parainfluenza 1 (PCR) Parainfluenza 2 (PCR) Parainfluenza 3 (PCR) Parainfluenza 4 (PCR) RSV (PCR) Entero/Rhino (PCR) Blood Type Antibody Screen Crossmatch 08/08/24 08/08/24 08/08/24 12:42 13:40 14:02 WBC RBC Hgb Hct MCV MCH MCHC RDW Plt Count Neut % (Auto) Lymph % (Auto) Bent % (Auto) Eos % (Auto) Baso % (Auto) Neut # (Auto) Lymph # (Auto) Bent # (Auto) Eos # (Auto) Baso # (Auto) PT INR APTT ABG Sample Site ABG pH ABG pCO2 ABG pO2 ABG HCO3 ABG Total CO2 ABG O2 Saturation ABG Base Excess Seamus Test Respiration Rate O2 Delivery Device Mode of Support FiO2 % Pressure Support PEEP or CPAP Sodium Potassium Chloride Carbon Dioxide BUN Creatinine Estimated GFR BUN/Creatinine Ratio Glucose Lactate 4.2 H* Calcium Total Bilirubin AST ALT Alkaline Phosphatase Total Creatine Kinase Troponin I NT-Pro-B Natriuret Pep Total Protein Albumin Globulin Albumin/Globulin Ratio Lipase Procalcitonin Urine Color Urine Appearance Urine pH Ur Specific [place] Urine Protein Urine Glucose (UA) Urine Ketones Urine Occult Blood Urine Nitrate Urine Bilirubin Urine Urobilinogen Ur Leukocyte Esterase Urine RBC Urine WBC Ur Squamous Epith Cells Urine Bacteria Ur Culture Indicated? Vol Urine Centrifuged Nasal Screen MRSA (PCR) Chlamy pneumoniae PCR Not detected Adenovirus (PCR) Not detected B.parapertussis DNA PCR Not detected Coronavirus OC43 (PCR) Not detected Coronavirus HKU1 (PCR) Not detected Coronavirus 229E (PCR) Not detected SARS-CoV-2 (PCR) Not detected Coronavirus NL63 (PCR) Not detected Human Metapneumovir PCR Not detected Influenza Type A (PCR) Not detected Influenza Type B (PCR) Not detected M. pneumoniae (PCR) Not detected Parainfluenza 1 (PCR) Not detected Parainfluenza 2 (PCR) Not detected Parainfluenza 3 (PCR) Not detected Parainfluenza 4 (PCR) Not detected RSV (PCR) Not detected Entero/Rhino (PCR) Not detected Blood Type A Positive Antibody Screen Negative Crossmatch See Detail 08/08/24 08/08/24 08/08/24 15:32 18:28 19:12 WBC RBC Hgb Hct MCV MCH MCHC RDW Plt Count Neut % (Auto) Lymph % (Auto) Bent % (Auto) Eos % (Auto) Baso % (Auto) Neut # (Auto) Lymph # (Auto) Bent # (Auto) Eos # (Auto) Baso # (Auto) PT INR APTT ABG Sample Site Left radial ABG pH 7.41 ABG pCO2 41.4 ABG pO2 81 ABG HCO3 26 ABG Total CO2 26 ABG O2 Saturation 96 ABG Base Excess 1.4 Seamus Test Positive Respiration Rate 15 O2 Delivery Device Bipap Mode of Support FiO2 % 35 % Pressure Support PEEP or CPAP 6 Sodium Potassium Chloride Carbon Dioxide BUN Creatinine Estimated GFR BUN/Creatinine Ratio Glucose Lactate 2.5 H Calcium Total Bilirubin AST ALT Alkaline Phosphatase Total Creatine Kinase Troponin I 0.698 H* NT-Pro-B Natriuret Pep Total Protein Albumin Globulin Albumin/Globulin Ratio Lipase Procalcitonin Urine Color Urine Appearance Urine pH Ur Specific [place] Urine Protein Urine Glucose (UA) Urine Ketones Urine Occult Blood Urine Nitrate Urine Bilirubin Urine Urobilinogen Ur Leukocyte Esterase Urine RBC Urine WBC Ur Squamous Epith Cells Urine Bacteria Ur Culture Indicated? Vol Urine Centrifuged Nasal Screen MRSA (PCR) Chlamy pneumoniae PCR Adenovirus (PCR) B.parapertussis DNA PCR Coronavirus OC43 (PCR) Coronavirus HKU1 (PCR) Coronavirus 229E (PCR) SARS-CoV-2 (PCR) Coronavirus NL63 (PCR) Human Metapneumovir PCR Influenza Type A (PCR) Influenza Type B (PCR) M. pneumoniae (PCR) Parainfluenza 1 (PCR) Parainfluenza 2 (PCR) Parainfluenza 3 (PCR) Parainfluenza 4 (PCR) RSV (PCR) Entero/Rhino (PCR) Blood Type Antibody Screen Crossmatch 08/08/24 08/08/24 08/08/24 20:14 21:30 23:40 WBC RBC Hgb 7.7 L Hct MCV MCH MCHC RDW Plt Count Neut % (Auto) Lymph % (Auto) Bent % (Auto) Eos % (Auto) Baso % (Auto) Neut # (Auto) Lymph # (Auto) Bent # (Auto) Eos # (Auto) Baso # (Auto) PT INR APTT ABG Sample Site ABG pH ABG pCO2 ABG pO2 ABG HCO3 ABG Total CO2 ABG O2 Saturation ABG Base Excess Seamus Test Respiration Rate O2 Delivery Device Mode of Support FiO2 % Pressure Support PEEP or CPAP Sodium Potassium Chloride Carbon Dioxide BUN Creatinine Estimated GFR BUN/Creatinine Ratio Glucose Lactate 2.4 H 2.6 H Calcium Total Bilirubin AST ALT Alkaline Phosphatase Total Creatine Kinase Troponin I 13.000 H* NT-Pro-B Natriuret Pep Total Protein Albumin Globulin Albumin/Globulin Ratio Lipase Procalcitonin Urine Color Urine Appearance Urine pH Ur Specific [place] Urine Protein Urine Glucose (UA) Urine Ketones Urine Occult Blood Urine Nitrate Urine Bilirubin Urine Urobilinogen Ur Leukocyte Esterase Urine RBC Urine WBC Ur Squamous Epith Cells Urine Bacteria Ur Culture Indicated? Vol Urine Centrifuged Nasal Screen MRSA (PCR) Not detected Chlamy pneumoniae PCR Adenovirus (PCR) B.parapertussis DNA PCR Coronavirus OC43 (PCR) Coronavirus HKU1 (PCR) Coronavirus 229E (PCR) SARS-CoV-2 (PCR) Coronavirus NL63 (PCR) Human Metapneumovir PCR Influenza Type A (PCR) Influenza Type B (PCR) M. pneumoniae (PCR) Parainfluenza 1 (PCR) Parainfluenza 2 (PCR) Parainfluenza 3 (PCR) Parainfluenza 4 (PCR) RSV (PCR) Entero/Rhino (PCR) Blood Type Antibody Screen Crossmatch 08/09/24 08/09/24 03:55 06:35 WBC 13.0 H RBC 3.45 L Hgb 8.4 L Hct 25.9 L MCV 75.0 L MCH 24.3 L MCHC 32.4 D RDW 19.9 H Plt Count 390 Neut % (Auto) 86.7 H Lymph % (Auto) 6.0 L Bent % (Auto) 7.0 Eos % (Auto) 0.0 L Baso % (Auto) 0.3 Neut # (Auto) 93382 H Lymph # (Auto) 800 L Bent # (Auto) 900 Eos # (Auto) 0 Baso # (Auto) 0 PT INR APTT ABG Sample Site ABG pH ABG pCO2 ABG pO2 ABG HCO3 ABG Total CO2 ABG O2 Saturation ABG Base Excess Seamus Test Respiration Rate O2 Delivery Device Mode of Support FiO2 % Pressure Support PEEP or CPAP Sodium 136 L Potassium 4.7 Chloride 99 Carbon Dioxide 30 BUN 38 H Creatinine 1.85 H Estimated GFR 30 L BUN/Creatinine Ratio 20.5 Glucose 222 H Lactate 2.0 Calcium 9.4 Total Bilirubin AST ALT Alkaline Phosphatase Total Creatine Kinase Troponin I 20.400 H* 17.800 H* NT-Pro-B Natriuret Pep Total Protein Albumin Globulin Albumin/Globulin Ratio Lipase Procalcitonin Urine Color Urine Appearance Urine pH Ur Specific [place] Urine Protein Urine Glucose (UA) Urine Ketones Urine Occult Blood Urine Nitrate Urine Bilirubin Urine Urobilinogen Ur Leukocyte Esterase Urine RBC Urine WBC Ur Squamous Epith Cells Urine Bacteria Ur Culture Indicated? Vol Urine Centrifuged Nasal Screen MRSA (PCR) Chlamy pneumoniae PCR Adenovirus (PCR) B.parapertussis DNA PCR Coronavirus OC43 (PCR) Coronavirus HKU1 (PCR) Coronavirus 229E (PCR) SARS-CoV-2 (PCR) Coronavirus NL63 (PCR) Human Metapneumovir PCR Influenza Type A (PCR) Influenza Type B (PCR) M. pneumoniae (PCR) Parainfluenza 1 (PCR) Parainfluenza 2 (PCR) Parainfluenza 3 (PCR) Parainfluenza 4 (PCR) RSV (PCR) Entero/Rhino (PCR) Blood Type Antibody Screen Crossmatch [facility] Social History household members: spouse Smoking Status: Former smoker alcohol intake: current Assessment & Plan Assessment & Plan narrative: 1. Acute diastolic congestive heart failure. Present on admission and improving. 2. Bilateral pulmonary infiltrates, severe leukocytosis, possible community- acquired pneumonia versus pulmonary edema. Present on admission and improving 3. NSTEMI. Present on admission and active. 4. Chronic left bundle-branch block. Present on admission and active. 5. Acute hypoxic respiratory failure, present on admission and improving. 6. Microcytic anemia, probable chronic GI bleeding. Transfuse 1 unit packed red blood cell in the emergency department. Follow closely given volume overload status. 7. Acute kidney injury. Present on admission and active. 8. Sepsis with elevated serum lactate. Present on admission and active. 9. Diabetes mellitus. Monitor with sliding scale insulin coverage. 10. Hypertension. Hold antihypertensives. 11. Hyperlipidemia. Stable. 12. DVT prophylaxis. Place sequential compression devices. Avoid anticoagulation. 13. Code status: Full code. The patient states that she may reconsider this upon further discussion with her . Plan: She was clinically improved today. Off BiPAP. She is still dyspneic with talking. She did have a significant bump in her troponin overnight. She was discussed with Cardiology. We will continue to diurese her. Limited echo was performed this morning with results pending, we will discuss case with her primary information security specialist later this morning when I have echo results. Monitor hemoglobin, and continue Protonix. Discuss with her information security specialist, is difficult to provide medical therapy with antiplatelets or anticoagulation with her blood loss anemia and recent melena. ANDERS: 08/11 Time-Based Coding :: [TOTAL MINUTES] spent with patient and on the chart (including review of chart, obtaining history, exam, reviewing outside data, placing orders, documenting exam and treatment plan, and counseling patient) on [DATE]. Quality VTE Deep Vein Thrombosis/Pulmonary Embolism Present on Admission: No
[2024-08-09] MEDS: INSULIN GLARGINE 100 UNIT/ML 3ML PEN 52 UNIT SUBCUT ×2 (08:13→20:56)
[2024-08-09] MEDS: FUROSEMIDE 120 MG in SODIUM CHLORIDE 0.9% 50 ML 124 MG IV (09:13)
[2024-08-09] MEDS: diphenhydrAMINE 50 MG/ML VIAL 25 MG IV (10:44)
--- NOTE | 2024-08-09 15:37 | CM.DANOTE ---
DCP Assessment Note: Pt is a 63yo female, resident of [place], is admitted for CHF, respiratory failure and anemia. Pt lives in a house with her spouse, Geovanny. Pt's Primary Care Provider is Dr. Humza Ferrer MD and insurance is [employer] and Medicare. Reviewed chart and team rounds for pt's medical status and initial discharge needs. Per hospitalist, pt might be a candidate for transfer to another hospital for higher level of care due to CHF, respiratory failure. DCP met w/patient at bedside; introduced self and role. Patient was found in bed, alert and oriented, cooperative with assessment. Pt confirmed living situation and good support in . Pt expressed preference in returning home when medically stable, pt understands there is a chance for transfer to higher level of care. Plan: Pending possible transfer to higher level of care, anticipating discharge home with spouse when medically stable. CM team will follow closely for coordination of discharge plans. EVANGELINA Ac Discharge Planning/Care Management CM Discharge Assessment Start: 08/09/24 15:35 Freq: Status: Active Protocol: Document 08/09/24 15:36 MW (Rec: 08/09/24 15:37 MW [id number]) Discharge Planning Assessment Assigned Monotype Operator SHAMA Hannah DPOA/Assigned Designee Name Geovanny, Spouse Contact Information [phone] Advance Directives? No History Provided By Patient,Significant Other, Medical Record Has Patient been admitted in last 30 No days? Prior Living Arrangements House Household Members spouse Type of transporation used prior to Relies on Others admit Independent with ADL's Yes Is patient alert and oriented? Yes Needs Assistance With Toileting,Home Chores / Shopping Caregiver for Another No DME Already Rented / Owned FWW / Walker,Bedside Commode Patient/Family Preference Halfway Facility Discharge Plan Transfer to Higher Level of Care Whiteboard Updated in Patient Room with Yes name and ext. # of Monotype Operator Comment [phone] Please Provide Date Initial DC 08/09/24 Assessment Was Performed Next Review Type Continued Stay Review
[2024-08-09] MEDS: ASPIRIN EC 81 MG TABLET PO (16:40)
[2024-08-09] MEDS: METOPROLOL IR 25 MG TABLET 12.5 MG PO (16:40)
[2024-08-10] VITALS (104 sets, daily range): BP systolic 106–148; BP diastolic 51–92; PULSE 74–110; RESP 15–47; TEMP 35.8–36.9; O2SAT 87–100
[2024-08-10] MEDS: ACETAMINOPHEN 325 MG TABLET 650 MG PO (01:46)
[2024-08-10] MEDS: PIPERACILLIN/TAZO 3.375 GM in SODIUM CHLORIDE 0.9% 100 ML IV ×2 (02:22→09:52)
[2024-08-10] MEDS: PANTOPRAZOLE DR 40 MG TABLET PO ×2 (06:24→20:41)
--- NOTE | 2024-08-10 08:24 | DI.RAD.S_ITS ---
PROCEDURE: XR CHEST 1V INDICATIONS: Dyspnea TECHNIQUE: One view of the chest was acquired. COMPARISON: [facility], CR, XR CHEST 1V, 08/09/2024, 6:06. FINDINGS: Surgical changes and devices: None. Lungs and pleura: Mild diffuse interstitial prominence. Mild bilateral perihilar airway thickening. Suspected small bilateral pleural effusions. Lung volumes are mildly diminished. No pneumothorax. No new focal consolidation. Mediastinum: The cardiomediastinal contours remain stable with enlargement of the cardiac silhouette. Bones and chest wall: No suspicious bony lesions. Overlying soft tissues appear unremarkable. IMPRESSION: Cardiomegaly with persistent but improved appearance of pulmonary edema/CHF. No new focal consolidation. Dictated by: Shravan Godwin M.D. on 08/10/2024 at 8:16 Approved by: Shravan Godwin M.D. on 08/10/2024 at 8:18
--- NOTE | 2024-08-10 08:24 | P.PN_ITS ---
Subjective Subjective Interval history: Admitted with CHF and NSTEMI. S: Her breathing and leg edema are slowly improving. No chest pain. No nausea. She is having some anxiety and does request anxiety medicine. She was eager to try to get out of bed. Exam Vital Signs (past 8 hours): - 08/10/24 00:30 08/10/24 00:43 08/10/24 00:43 Pulse Rate 91 H 89 Respiratory Rate 25 H 17 Blood Pressure 133/59 L Pulse Oximetry 99 100 08/10/24 00:45 08/10/24 01:00 08/10/24 01:00 Pulse Rate 90 89 Respiratory Rate 17 20 Blood Pressure 123/56 L Pulse Oximetry 100 98 08/10/24 01:15 08/10/24 01:30 08/10/24 01:45 Pulse Rate 89 87 105 H Respiratory Rate 20 19 19 Blood Pressure Pulse Oximetry 99 98 93 08/10/24 02:00 08/10/24 02:00 08/10/24 02:15 Pulse Rate 93 H 90 Respiratory Rate 26 H 15 Blood Pressure 137/62 Pulse Oximetry 96 95 08/10/24 02:30 08/10/24 02:45 08/10/24 03:00 Pulse Rate 95 H 94 H 90 Respiratory Rate 21 23 19 Blood Pressure Pulse Oximetry 96 95 96 08/10/24 03:01 08/10/24 03:01 08/10/24 03:15 Pulse Rate 92 H 90 Respiratory Rate 23 17 Blood Pressure 108/61 Pulse Oximetry 96 95 08/10/24 03:30 08/10/24 03:45 08/10/24 04:00 Pulse Rate 88 88 Respiratory Rate 20 20 Blood Pressure 114/56 L Pulse Oximetry 96 95 08/10/24 04:00 08/10/24 04:15 08/10/24 04:30 Pulse Rate 87 89 85 Respiratory Rate 19 19 23 Blood Pressure Pulse Oximetry 96 97 90 L 08/10/24 04:45 08/10/24 05:00 08/10/24 05:01 Pulse Rate 86 90 Respiratory Rate 19 24 Blood Pressure 130/92 H Pulse Oximetry 97 94 08/10/24 05:01 08/10/24 05:15 08/10/24 05:30 Pulse Rate 92 H 86 86 Respiratory Rate 24 21 21 Blood Pressure Pulse Oximetry 94 95 97 08/10/24 05:45 08/10/24 06:00 08/10/24 06:00 Pulse Rate 85 86 Respiratory Rate 20 21 Blood Pressure 135/58 L Pulse Oximetry 97 96 08/10/24 06:15 Pulse Rate 84 Respiratory Rate 19 Blood Pressure Pulse Oximetry 98 Fraction of Inspired Oxygen 32 Oxygen Delivery Method Nasal Cannula Oxygen Flow Rate 2 Narrative Exam Narrative: NAD, alert and oriented. Fluent speech. On 2 L NC. Lungs are clear, normal rate and effort. Heart is regular, no murmur gallop or rub. Abdomen is soft, non distended. Extremities are with 1+ edema. Objective Imaging Echo: Radiologist's impression: The study quality was technically difficult. The ejection fraction is estimated to be 50-55%. Diastolic function could not be accurately assessed due to unobtainable data. The right ventricle is normal in size and function. Mitral annular calcification with extension onto the posterior leaflet without significant mitral stenosis. Pulmonary artery pressures cannot be estimated because of the lack of a measurable TR jet velocity. Labs 08/09/24 03:55 08/09/24 03:55 [facility] Social History household members: spouse Smoking Status: Former smoker alcohol intake: current Assessment & Plan Assessment & Plan narrative: 1. Acute diastolic congestive heart failure. Present on admission and improving. 2. Bilateral pulmonary infiltrates, severe leukocytosis, possible community- acquired pneumonia versus pulmonary edema. Present on admission and improving 3. NSTEMI. Present on admission and active. 4. Chronic left bundle-branch block. Present on admission and active. 5. Acute hypoxic respiratory failure, present on admission and improving. 6. Microcytic anemia, probable chronic GI bleeding. Transfuse 1 unit packed red blood cell in the emergency department. Follow closely given volume overload status. 7. Acute kidney injury. Present on admission and active. 8. Sepsis with elevated serum lactate. Present on admission and active. 9. Diabetes mellitus. Monitor with sliding scale insulin coverage. 10. Hypertension. Hold antihypertensives. 11. Hyperlipidemia. Stable. 12. DVT prophylaxis. Place sequential compression devices. Avoid anticoagulation. 13. Code status: Full code. The patient states that she may reconsider this upon further discussion with her . Plan: -follow hemoglobin, this remained stable. Continue Protonix b.i.d.. Monitor for evidence of melena. -started on metoprolol, and aspirin as well as atorvastatin. -echo looks reassuring. Discussed with Cardiology. -we will begin to mobilize her today with physical therapy and occupational therapy. -repeated the chest x-ray, reveals persistent pulmonary edema. We will try Bumex 2 mg IV q.12 hours as she has had a suboptimal response to furosemide. ANDERS: 08/12 Time-Based Coding :: [TOTAL MINUTES] spent with patient and on the chart (including review of chart, obtaining history, exam, reviewing outside data, placing orders, documenting exam and treatment plan, and counseling patient) on [DATE]. Quality VTE Deep Vein Thrombosis/Pulmonary Embolism Present on Admission: No
[2024-08-10] MEDS: INSULIN GLARGINE 100 UNIT/ML 3ML PEN 52 UNIT SUBCUT ×2 (09:01→20:42)
[2024-08-10] MEDS: METOPROLOL IR 25 MG TABLET 12.5 MG PO (09:02)
[2024-08-10] MEDS: ASPIRIN EC 81 MG TABLET PO (09:02)
[2024-08-10] MEDS: SPIRONOLACTONE 12.5 MG TABLET PO (09:49)
[2024-08-10] MEDS: ATORVASTATIN 20 MG TABLET 80 MG PO (09:49)
[2024-08-10] MEDS: FENOFIBRATE, MICRONIZED 67 MG CAPSULE PO (09:49)
[2024-08-10] MEDS: ISOSORBIDE MONONITRATE ER 30 MG TABLET PO (09:50)
[2024-08-10] MEDS: BUMETANIDE 1 MG/4 ML VIAL 2 MG IV ×2 (09:52→20:41)
[2024-08-10] MEDS: cefTRIAXone 1,000 MG in SODIUM CHLORIDE 0.9% 100 ML 200 MG IV (10:30)
[2024-08-10] MEDS: OXYCODONE IR 5 MG TABLET PO (11:35)
[2024-08-10] MEDS: INSULIN LISPRO 100 UNIT/ML 3ML VIAL SUBCUT ×3 (11:35→20:43)
--- NOTE | 2024-08-10 12:00 | CM.DPC ---
DCP Continued: Reviewed EMR and team rounds for pt?s medical status. Per hospitalist, pt completed a limited echo and results are pending. No other discharge needs identified. Plan: Anticipating discharge with spouse on 08/11, pending results of echo. CM Team will continue to follow for coordination of discharge plans. EVANGELINA Ac
--- NOTE | 2024-08-10 13:40 | PT.IIE ---
Current Diagnoses Sepsis, unspecified organism (08/08/24) Physical Therapy Inpatient Evaluation/Re-Eval M1 PT/OT-IP Prior Functional Status Start: 08/10/24 14:45 Freq: NEEDED Status: Active Protocol: Document 08/10/24 13:40 AB (Rec: 08/10/24 15:00 [id number]) Medical Review Prior Functional Status Medical History Reviewed Yes Communication able to make needs known Mobility and Gait pt stated that she was modified independent with all mobilities and ambulation using a 4WW but limited ambulation due to c/o getting tired easily; stated that she sits on the 4WW when she gets tired Social History Household Members spouse Living Arrangements House Number of Floors (Floors) One Floor Number of Stairs To Enter/Railing? ramp to enter Home Environment Standard Height Toilet,Walk in Shower Home Equipment Front Wheel Walker,Four Wheel Walker,Manual Wheelchair, Shower Seat with Backrest,Hand Held Shower,Lift Recliner, Grab Bars Near Toilet Additional Social History Comment pt sleeps on her lift chair pt has a transport chair M2 PT-IP Current Condition Start: 08/10/24 14:45 Freq: NEEDED Status: Active Protocol: Document 08/10/24 13:40 AB (Rec: 08/10/24 15:00 [id number]) Physical Therapy Current Condition Current Condition Evaluation Date 08/10/24 Treatment Diagnosis CHF; respiratory failure; difficulty in walking Onset Date 08/08/24 M3 PT-IP Subjective Start: 08/10/24 14:45 Freq: NEEDED Status: Active Protocol: Document 08/10/24 13:40 AB (Rec: 08/10/24 15:00 [id number]) Subjective Physical Therapy Visit Type Type Initial Evaluation Visit Start Time 13:40 Visit Stop Time 14:40 Number of YEAST FERMENTATION ATTENDANT Visits 0 Physical Therapy Visit Comments Patient Comments agreeable to do PT M4 PT-IP Mobility and Gait Start: 08/10/24 14:45 Freq: NEEDED Status: Active Protocol: Document 08/10/24 13:40 AB (Rec: 08/10/24 15:00 [id number]) PT-Bed Mobility Assessment Supine to Sit Supine to Sit Maximum Assistance,Head of Bed Elevated,Bedrails PT-Transfer Assessment Sit to and From Stand Sit to and from Stand Moderate Assistance,Maximum Assistance,1 Person Assistance ,Use of Upper Extremities Equipment Transfer Assistive Device Gait Belt,Front Wheeled Walker Orthotic/Prosthetic Devices or Brace: No Transfers Transfer Destination Chair Transfer Technique Stand Step Pivot Transfer Ability Level of Assist Moderate Assistance,1 Person Assistance,Use of Upper Extremities Comments Mobility Comments pt supine in bed and agreeable to do PT. obtained PLOF and home set up from pt. BP: 125/ 74 O2 sat with 1L/min O2: 88- 92%. pt completed supine to sit max A and max cues with HOB elevated. pt required increase time to complete task. (+) SOB. O2 sat: 88-89%. pt requiring increase rest breaks in between activities. pt completed sit to stand from EOB mod A and cues and step transfer to chair using FWW mod A. pt rested again. O2 sat: 87-89%. pt agreed to ambulate. sit to stand from chair mod to max A and max cues. pt ambulated in room using FWW ~ 15 ft mod A and cues. presents with unsteady guarded gait. cued to take deep breaths in between activities. pt sat back on chair. O2 sat checked: ~ 87%. increase to ~ 88-89 % in a few seconds and with deep breathing. pt agreed to stay up on the chair. positioned pt on the chair. call light and table placed within reach. informed nurse regarding pt's mobility assistance and O2 sat . Gait Assessment Gait Gait Assistance Required: Moderate Assistance,1 Person Assist Distance (Feet) 15 Able to Maintain Weight Bearing Status Yes During Gait Assistive Devices Assistive Device Gait Belt,Front Wheeled Walker Orthotic/Prosthetic Devices or Brace: No Gait Deviations General Gait Pattern Decreased Stride Length, Decreased Feet Clearance Factors Limiting Gait Function Factors Limiting Gait Function Decreased Activity Tolerance, Decreased Sensation,Decreased Strength,Difficulty Following Directions,Poor Balance,Poor Safety Awareness,Respiratory Distress PT-Balance Assessment Sitting Balance and Reactions Static Sitting Balance Ability Good Dynamic Sitting Balance Ability Fair Standing Balance and Reactions Static Standing Balance Ability Fair Dynamic Standing Balance Ability Poor Device Used FWW M5 PT-IP Objective Assessments Start: 08/10/24 14:45 Freq: NEEDED Status: Active Protocol: Document 08/10/24 13:40 AB (Rec: 08/10/24 15:00 AB [id number]) Orientation Orientation/Cognition Level of Alertness Alert Orientation Name,Place,Situation Language Function Ability Hard of Hearing Safety Awareness Decreased Safety Awareness Comments pt stated that 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 R ear has hearing loss Strength Lower Extremity Strength Assessment Left Impaired Hip 3+/5 Knee 3+/5 Sensation Assessment Sensation Sensation Description Numbness Comments Sensation Comments numbness on toes per pt Muscle Tone Muscle Tone WNL Yes M6 PT-IP Treatment Start: 08/10/24 14:45 Freq: NEEDED Status: Active Protocol: Document 08/10/24 13:40 AB (Rec: 08/10/24 15:00 AB [id number]) Physical Therapy Treatment Education Education Provided Safety M7 PT-IP Assessment and Plan Start: 08/10/24 14:45 Freq: NEEDED Status: Active Protocol: Document 08/10/24 13:40 AB (Rec: 08/10/24 15:00 AB [id number]) PT Summary Assessment and Plan Potential Rehabilitation Potential Fair Status of Condition at Evaluation Evolving Summary Impairments Pain,ROM,Strength,Balance, Coordination,Sensation,Tone, Cognition,Bed Mobility, Transfers,Gait,Activity Tolerance Assessment Summary pt is a 63 y/o F who is admitted fro CHF, respiratory failure. pt requiring max A with bed mobility, mod to max A for transfers and ambulation using FWW and with decrease activity tolerance affecting mobility independence. O2 sat decreases to 87% with activity with 1L/min O2. pt lives with her spouse who will be able to assist her pt. will continue to assess progress but at this time, will require SNF rehab. will continue to assess progress. Goals Bed Mobility Goal Standby Assistance Transfer Goal Independent,Front Wheeled Walker Gait Goal Independent,Front Wheel Walker Gait Distance 100 Other Goals improve transfers and ambulation using 4WW ~ 150 ft mod I Days to Meet Goals 10 Frequency of Treatment Frequency Of Treatment Once a Day Treatment Plan Physical Therapy Treatment Plan Bed Mobility Training,Transfer Training,Gait Training, Therapeutic Exercise,Balance Retraining,Discharge Planning, Hot or Cold Pack,Neuromuscular Re-ed,Coordination Retraining Precautions Other Precautions O2 sat Recommendations To Nursing Amount of Assist Needed 1 Person Assist Discharge Recommendations PT Discharge Recommendations Home with 19/06 Assist Available,Home Health,SNF Rehab,Home vs SNF Transportation Needs at Discharge Private Vehicle,Wheelchair/ Cabulance
[2024-08-10] MEDS: LACTOBACILLUS ACIDOPHILUS TABLET 1 EACH PO (17:12)
[2024-08-10] MEDS: GABAPENTIN 100 MG CAPSULE PO (17:12)
[2024-08-10] MEDS: TRAZODONE 50 MG TABLET 100 MG PO (20:41)
[2024-08-10] MEDS: diphenhydrAMINE 50 MG/ML VIAL 25 MG IV (21:06)
[2024-08-11] VITALS (90 sets, daily range): BP systolic 122–150; BP diastolic 56–73; PULSE 79–107; RESP 15–42; TEMP 36.4–36.8; O2SAT 86–99
--- NOTE | 2024-08-11 08:09 | PM.PN.1 ---
Subjective Subjective Interval history: Admitted with CHF and NSTEMI. No known H/O CAD. Initially on BiPAP and nitroglycerin IV for pulmonary edema. S: She was doing well, no dyspnea. She denies any chest pain. I discussed with Dr. Garza of Cardiology, he feel she was appropriate for transfer to [facility] for an angiogram. She was usually followed by Dr. Bolden at [facility] and she was organizing a stress test before all of this happened. The patient is a [facility] patient, I did discuss this with the [facility] referral [facility], phone number [phone]. They have started an internal referral and we will likely here whether or not she was approved for transfer on August 12. Exam Vital Signs (past 8 hours): - 08/11/24 00:15 08/11/24 00:30 08/11/24 00:45 Pulse Rate 83 86 87 Respiratory Rate 20 21 22 Blood Pressure 08/11/24 01:00 08/11/24 01:00 08/11/24 01:15 Pulse Rate 88 86 Respiratory Rate 21 22 Blood Pressure 134/60 08/11/24 01:30 08/11/24 01:45 08/11/24 02:00 Pulse Rate 92 H 90 87 Respiratory Rate 24 21 22 Blood Pressure 08/11/24 02:15 08/11/24 02:30 08/11/24 02:45 Pulse Rate 85 84 84 Respiratory Rate 23 23 22 Blood Pressure 08/11/24 03:00 08/11/24 03:15 08/11/24 03:30 Pulse Rate 85 81 79 Respiratory Rate 20 22 23 Blood Pressure 08/11/24 03:45 08/11/24 04:00 08/11/24 04:15 Pulse Rate 86 83 84 Respiratory Rate 23 22 23 Blood Pressure 08/11/24 04:30 08/11/24 04:45 08/11/24 05:00 Pulse Rate 85 82 80 Respiratory Rate 22 22 22 Blood Pressure 08/11/24 05:15 08/11/24 05:29 08/11/24 05:30 Pulse Rate 79 91 H Respiratory Rate 23 24 Blood Pressure 128/59 L Fraction of Inspired Oxygen 32 Oxygen Delivery Method Nasal Cannula Oxygen Flow Rate 1 Narrative Exam Narrative: NAD, alert and oriented. Fluent speech. Lungs are clear, normal rate and effort. Heart is regular, no murmur gallop or rub. Abdomen is soft, non distended. Extremities are free of edema. Objective Imaging Echo: Radiologist's impression: The study quality was technically difficult. The ejection fraction is estimated to be 50-55%. Diastolic function could not be accurately assessed due to unobtainable data. The right ventricle is normal in size and function. Mitral annular calcification with extension onto the posterior leaflet without significant mitral stenosis. Pulmonary artery pressures cannot be estimated because of the lack of a measurable TR jet velocity. Labs 08/09/24 03:55 08/09/24 03:55 [facility] Social History household members: spouse Smoking Status: Former smoker alcohol intake: current Assessment & Plan Assessment & Plan narrative: 1. Acute diastolic congestive heart failure. Present on admission and improving. 2. Bilateral pulmonary infiltrates, severe leukocytosis, possible community-acquired pneumonia versus pulmonary edema. Present on admission and improving 3. NSTEMI. Present on admission and active. 4. Chronic left bundle-branch block. Present on admission and active. 5. Acute hypoxic respiratory failure, present on admission and improving. 6. Microcytic anemia, probable chronic GI bleeding. Transfuse 1 unit packed red blood cell in the emergency department. Follow closely given volume overload status. 7. Acute kidney injury. Present on admission and active. 8. Sepsis with elevated serum lactate. Present on admission and active. 9. Diabetes mellitus. Monitor with sliding scale insulin coverage. 10. Hypertension. Hold antihypertensives. 11. Hyperlipidemia. Stable. 12. DVT prophylaxis. Place sequential compression devices. Avoid anticoagulation. 13. Code status: Full code. The patient states that she may reconsider this upon further discussion with her . Plan: -follow hemoglobin (stable). Continue Protonix b.i.d.. Monitor for evidence of melena. None since admit. -started on metoprolol, and aspirin as well as atorvastatin. -echo looks reassuring. Discussed with Cardiology. Working on transfer to [facility], pending [facility] approval. -mobilize her today with physical therapy and occupational therapy. -Continue Bumex 2 mg IV q.12 hours as she has had a suboptimal response to furosemide. Anticipate transfer to [facility] on August 12 if [facility] approves. Indication is coronary angiogram and patient with new acute diastolic heart failure and NSTEMI. ANDERS: 08/12 Time-Based Coding :: [TOTAL MINUTES] spent with patient and on the chart (including review of chart, obtaining history, exam, reviewing outside data, placing orders, documenting exam and treatment plan, and counseling patient) on [DATE]. Quality VTE Deep Vein Thrombosis/Pulmonary Embolism Present on Admission: No
[2024-08-11] MEDS: BUMETANIDE 1 MG/4 ML VIAL 2 MG IV ×2 (08:41→21:25)
[2024-08-11] MEDS: LACTOBACILLUS ACIDOPHILUS TABLET 1 EACH PO ×2 (08:41→16:04)
[2024-08-11] MEDS: ASPIRIN EC 81 MG TABLET PO (08:41)
[2024-08-11] MEDS: INSULIN GLARGINE 100 UNIT/ML 3ML PEN 52 UNIT SUBCUT (08:41)
[2024-08-11] MEDS: ATORVASTATIN 20 MG TABLET 80 MG PO (08:41)
[2024-08-11] MEDS: ISOSORBIDE MONONITRATE ER 30 MG TABLET PO (08:42)
[2024-08-11] MEDS: FENOFIBRATE, MICRONIZED 67 MG CAPSULE PO (08:42)
[2024-08-11] MEDS: PANTOPRAZOLE DR 40 MG TABLET PO ×2 (08:42→21:24)
[2024-08-11] MEDS: METOPROLOL ER 25 MG TABLET PO (08:42)
[2024-08-11] MEDS: SPIRONOLACTONE 12.5 MG TABLET PO (08:43)
--- NOTE | 2024-08-11 09:50 | PT.IPTN ---
Current Diagnoses Sepsis, unspecified organism (08/08/24) Physical Therapy Treatment Note M2 PT-IP Current Condition Start: 08/10/24 14:45 Freq: NEEDED Status: Active Protocol: Document 08/10/24 13:40 AB (Rec: 08/10/24 15:00 AB [id number]) Physical Therapy Current Condition Current Condition Evaluation Date 08/10/24 Treatment Diagnosis CHF; respiratory failure; difficulty in walking Onset Date 08/08/24 M3 PT-IP Subjective Start: 08/10/24 14:45 Freq: NEEDED Status: Active Protocol: Document 08/11/24 09:24 KS (Rec: 08/11/24 10:39 KS [id number]) Subjective Physical Therapy Visit Type Type Treatment Note Visit Start Time 09:24 Visit Stop Time 09:50 Number of DEWER Visits 26 Physical Therapy Visit Comments Patient Comments agreeable to do PT M4 PT-IP Mobility and Gait Start: 08/10/24 14:45 Freq: NEEDED Status: Active Protocol: Document 08/11/24 09:24 KS (Rec: 08/11/24 10:39 KS [id number]) PT-Bed Mobility Assessment Supine to Sit Supine to Sit Moderate Assistance,1 Person Assistance,Head of Bed Elevated Sit to Supine Sit to Supine Moderate Assistance,1 Person Assistance PT-Transfer Assessment Sit to and From Stand Sit to and from Stand Contact Guard Assistance,1 Person Assistance,Use of Upper Extremities Equipment Transfer Assistive Device Gait Belt,Front Wheeled Walker Orthotic/Prosthetic Devices or Brace: No Transfers Transfer Destination Bed Transfer Technique Lateral steps Transfer Ability Level of Assist Minimal Assistance,1 Person Assistance,Use of Upper Extremities Comments Mobility Comments Pt in bed upon arrival, agreeable to work with PT but does not want to sit in chair as she was uncomfortable there yesterday. Explains she has h /o 4 strokes - legs are strong but core is weak/poor trunk control. Mod A for sup<>sit, CGA for sit>Stnd w/ FWW. Pt slightly off blanace but able to maintain w/ FWW. Pt took ~3 lateral steps towards HOB before sitting. She performed 2 additional sit<>stands CGA w / short bouts of marching in place. 1x posterior LOB while standing needing Min A to recover. Mod A for LE elevation into bed. Pt left in bed w/ all needs in reach. Gait Assessment Gait Gait Assistance Required: Minimum Assistance,1 Person Assist Distance (Feet) 6 Able to Maintain Weight Bearing Status Yes During Gait Assistive Devices Assistive Device Gait Belt,Front Wheeled Walker Orthotic/Prosthetic Devices or Brace: No Gait Deviations General Gait Pattern Decreased Stride Length, Decreased Feet Clearance Factors Limiting Gait Function Factors Limiting Gait Function Decreased Activity Tolerance, Decreased Sensation,Decreased Strength,Difficulty Following Directions,Poor Balance,Poor Safety Awareness,Respiratory Distress Comments Gait Comments Lateral steps towards HOB PT-Balance Assessment Sitting Balance and Reactions Static Sitting Balance Ability Good Dynamic Sitting Balance Ability Fair Standing Balance and Reactions Static Standing Balance Ability Fair Dynamic Standing Balance Ability Poor Device Used FWW M5 PT-IP Objective Assessments Start: 08/10/24 14:45 Freq: NEEDED Status: Active Protocol: Document 08/10/24 13:40 AB (Rec: 08/10/24 15:00 AB [id number]) Orientation Orientation/Cognition Level of Alertness Alert Orientation Name,Place,Situation Language Function Ability Hard of Hearing Safety Awareness Decreased Safety Awareness Comments pt stated that 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 R ear has hearing loss Strength Lower Extremity Strength Assessment Left Impaired Hip 3+/5 Knee 3+/5 Sensation Assessment Sensation Sensation Description Numbness Comments Sensation Comments numbness on toes per pt Muscle Tone Muscle Tone WNL Yes M6 PT-IP Treatment Start: 08/10/24 14:45 Freq: NEEDED Status: Active Protocol: Document 08/11/24 09:24 KS (Rec: 08/11/24 10:39 PR [id number]) Physical Therapy Treatment Education Education Provided Safety M7 PT-IP Assessment and Plan Start: 08/10/24 14:45 Freq: NEEDED Status: Active Protocol: Document 08/11/24 09:24 KS (Rec: 08/11/24 10:39 PR [id number]) PT Summary Assessment and Plan Potential Rehabilitation Potential Fair Summary Impairments Pain,ROM,Strength,Balance, Coordination,Sensation,Tone, Cognition,Bed Mobility, Transfers,Gait,Activity Tolerance Progress Towards Goals Slow Progress due to Medical Issues,Slow Progress due to Activity Tolerance Assessment Summary Pt requires less assistance overall today - Mod A for bed mobility, CGA for sit<>stand, and Min A for short distance ambulation w/ FWW. 1x posterior LOB needing Min A to recover. Poor trunk control in sitting at times needing FWW or bed rails occasionally. Pt would benefit from HHPT and HHOT services. Goals Bed Mobility Goal Standby Assistance Transfer Goal Independent,Front Wheeled Walker Gait Goal Independent,Front Wheel Walker Gait Distance 100 Other Goals improve transfers and ambulation using 4WW ~ 150 ft mod I Days to Meet Goals 10 Frequency of Treatment Frequency Of Treatment Once a Day Treatment Plan Physical Therapy Treatment Plan Bed Mobility Training,Transfer Training,Gait Training, Therapeutic Exercise,Balance Retraining,Discharge Planning, Hot or Cold Pack,Neuromuscular Re-ed,Coordination Retraining Precautions Other Precautions O2 sat Recommendations To Nursing Amount of Assist Needed 1 Person Assist Discharge Recommendations PT Discharge Recommendations Home with 19/06 Assist Available,Home Health,SNF Rehab,Home vs SNF Transportation Needs at Discharge Private Vehicle,Wheelchair/ Cabulance
--- NOTE | 2024-08-11 10:28 | CM.DPNOTE ---
Addendum entered by SHAMA Booth 08/11/24 11:04: Per [employer] SERVICES MANAGER, if pt stays and discharges from here, rec HH for PT/OT. Per [employer] MANAGER, pt eager/agreeable to HH. If pt does not transfer, CM team will arrange for HH referral at mo. SL Original Note: DCP Note [employer] reviewed EMR. Per hospitalist in morning rounds, believes she may require more cardiac workup than can be managed here. Attempting to transfer to [facility] for higher level of care. P: either home with spouse vs transfer to [facility]. CM team will continue to follow closely for additional CM/DCP needs that arise SHAMA Booth
[2024-08-11] MEDS: cefTRIAXone 1,000 MG in SODIUM CHLORIDE 0.9% 100 ML 200 MG IV (12:30)
[2024-08-11 15:12] LABS: Hematocrit 26.4 % (36-46); Hemoglobin 8.4 g/dL (12.0-16.0); Mean Corpuscular Volume 74.9 fL (80-100); Platelet Count 364 X10^3/uL (150-400); Red Blood Cell Count 3.53 X10^6/uL (4.0-5.2); Red Cell Distribution Width 20.1 % (11.6-14.8); White Blood Cell Count 8.4 X10^3/uL (4.5-11.0)
[2024-08-11 15:23] LABS: BUN Creatinine Ratio 32.9 (6-22); Blood Urea Nitrogen 53 mg/dL (7-17); Calcium 9.2 mg/dL (8.4-10.2); Carbon Dioxide 33 mmol/L (22-32); Chloride 96 mmol/L (98-107); Estimated Glomerular Filt Rate 35 mL/min (>60); Glucose 161 mg/dL (80-110); HEMOLYSIS 17 (0-50); Magnesium 2.1 mg/dL (1.6-2.3); Potassium 4.1 mmol/L (3.4-5.1); Sodium 134 mmol/L (137-145)
[2024-08-11] MEDS: diphenhydrAMINE 50 MG/ML VIAL 25 MG IV (16:03)
[2024-08-11] MEDS: GABAPENTIN 100 MG CAPSULE PO (16:04)
[2024-08-11] MEDS: INSULIN LISPRO 100 UNIT/ML 3ML VIAL SUBCUT ×2 (17:29→21:26)
[2024-08-11] MEDS: TRAZODONE 50 MG TABLET 100 MG PO (21:24)
[2024-08-11] MEDS: INSULIN GLARGINE 100 UNIT/ML 3ML PEN 48 UNIT SUBCUT (21:25)
[2024-08-12] VITALS (57 sets, daily range): BP systolic 127–159; BP diastolic 58–70; PULSE 80–93; RESP 17–33; TEMP 36.5–36.7; O2SAT 89–99
[2024-08-12] MEDS: ACETAMINOPHEN 325 MG TABLET 650 MG PO ×3 (01:07→22:36)
[2024-08-12 04:52] LABS: Hematocrit 25.4 % (36-46); Hemoglobin 8.4 g/dL (12.0-16.0); Mean Corpuscular Hemoglobin 24.5 PG (26-34); Mean Corpuscular Volume 74.3 fL (80-100); Platelet Count 398 X10^3/uL (150-400); Red Blood Cell Count 3.42 X10^6/uL (4.0-5.2); Red Cell Distribution Width 20.7 % (11.6-14.8); White Blood Cell Count 7.9 X10^3/uL (4.5-11.0)
[2024-08-12 05:03] LABS: BUN Creatinine Ratio 29.2 (6-22); Blood Urea Nitrogen 47 mg/dL (7-17); Calcium 9.1 mg/dL (8.4-10.2); Carbon Dioxide 36 mmol/L (22-32); Chloride 94 mmol/L (98-107); Estimated Glomerular Filt Rate 35 mL/min (>60); Glucose 107 mg/dL (80-110); HEMOLYSIS < 15 (0-50); Potassium 3.4 mmol/L (3.4-5.1); Sodium 136 mmol/L (137-145)
[2024-08-12] MEDS: PANTOPRAZOLE DR 40 MG TABLET PO ×2 (05:38→21:17)
[2024-08-12] MEDS: diphenhydrAMINE 50 MG/ML VIAL 25 MG IV (05:38)
[2024-08-12] MEDS: INSULIN GLARGINE 100 UNIT/ML 3ML PEN 52 UNIT SUBCUT (08:21)
[2024-08-12] MEDS: ISOSORBIDE MONONITRATE ER 30 MG TABLET PO (08:25)
[2024-08-12] MEDS: SPIRONOLACTONE 12.5 MG TABLET PO (08:25)
[2024-08-12] MEDS: METOPROLOL ER 25 MG TABLET PO (08:25)
[2024-08-12] MEDS: BUMETANIDE 1 MG/4 ML VIAL 2 MG IV ×2 (08:25→21:17)
[2024-08-12] MEDS: ASPIRIN EC 81 MG TABLET PO (08:25)
[2024-08-12] MEDS: LACTOBACILLUS ACIDOPHILUS TABLET 1 EACH PO ×2 (08:25→17:17)
[2024-08-12] MEDS: FENOFIBRATE, MICRONIZED 67 MG CAPSULE PO (08:26)
[2024-08-12] MEDS: ATORVASTATIN 20 MG TABLET 80 MG PO (08:26)
[2024-08-12] MEDS: POTASSIUM CHLORIDE 20 MEQ TAB 40 MEQ PO (09:57)
[2024-08-12] MEDS: cefTRIAXone 1,000 MG in SODIUM CHLORIDE 0.9% 100 ML 200 MG IV (10:00)
--- NOTE | 2024-08-12 10:08 | PT-IP ANOTE ---
Discussed pt in rounds and pt to transfer facilities d/t medical acuity and doctor clears to d/c PT order.
--- NOTE | 2024-08-12 10:28 | OT.IPNOTE ---
Discussed pt in rounds. Pt with NSTEMI and currently seeking to transfer out to another facility for angiogram. MD requested that therapies discharge orders at this time.
--- NOTE | 2024-08-12 10:55 | CM.DPNOTE ---
Addendum entered by SHAMA Booth 08/12/24 15:42: Per PN, accepted at [facility] pending bed availability. SL Original Note: DCP Note SHAMA reviewed EMR. Per hospitalist in morning rounds, pt needs transfer to place with cardiology for left heart cath. Pending [place] referral input. Cancel PT/OT for now. P: transfer vs home with HH. CM team will continue to follow closely SHAMA Booth
[2024-08-12] MEDS: INSULIN LISPRO 100 UNIT/ML 3ML VIAL SUBCUT ×3 (12:30→21:18)
--- NOTE | 2024-08-12 14:29 | PM.DS.1 ---
History of Present Illness History of Present Illness Date Patient Seen: 08/14/24 Chief complaint: SOB Narrative: 63 year old woman under the primary care of Dr. Humza Ferrer with a history of diastolic congestive heart failure, multiple strokes with chronic right-sided weakness and long-term variably controlled diabetes presents with onset of significant increased shortness of breath, abdominal discomfort, swelling and increased lower extremity edema. She notes that for the past 9 months she has had orthopnea symptoms and sleeps in a recliner, with chronic refractory lower extremity edema. She has been followed by Cardiology on diuretic therapy. She was found to be hypoxic in the field with oxygen saturations in the 70s 80s% range, misread 6 L of nasal cannula oxygen and brought to the emergency department. She was placed on BiPAP due to progressive hypoxemia, administered IV furosemide and transferred to the ICU. ER note: Patient is a 63 female history of multiple strokes on Plavix chronic right-sided weakness uses a walker diabetes on insulin hypertension hyperlipidemia no known history of congestive heart failure but takes Lasix presenting today with increasing shortness of breath. She reports it has been ongoing for the last 24 hours feeling some abdominal pain and swelling. EMS reports that she was hypoxic upon arrival actually started giving her DuoNeb. She is this has she required 6 L nasal cannula she improved somewhat with a DuoNeb however right before arrival she is quickly decompensated. She denies any sort of chest pain he is unable to have a conversation continues to be hypoxic and appears in moderate to severe respiratory distress. Discharge Providers Provider Date of admission: 08/08/24 16:44 Discharge Date: 08/14/24 Primary care physician: Humza Ferrer MD Consults: 08/10/24 13:20 Consult to Occupational Therapy Evaluate & Treat Comment: Physician Instructions: Evaluate and treat Consult to Physical Therapy Evaluate & Treat Comment: Physician Instructions: Evaluate and Treat Discharge provider: Kennedy Shafer DO Summary Hospital Course Discharge Diagnosis: 1. Acute diastolic congestive heart failure. Present on admission and improving. 2. Bilateral pulmonary infiltrates, severe leukocytosis, possible community-acquired pneumonia versus pulmonary edema. Present on admission and improving 3. NSTEMI. Present on admission and active. 4. Chronic left bundle-branch block. Present on admission and active. 5. Acute hypoxic respiratory failure, present on admission and improving. 6. Microcytic anemia, probable chronic GI bleeding. Transfuse 1 unit packed red blood cell in the emergency department. Follow closely given volume overload status. 7. Acute kidney injury. Present on admission and active. 8. Sepsis with elevated serum lactate. Present on admission and active. 9. Diabetes mellitus. Monitor with sliding scale insulin coverage. 10. Hypertension. Hold antihypertensives. 11. Hyperlipidemia. Stable. Hospital Course: This is a 63 year old female with PMH of DM, prior CVA, HTN, diastolic heart failure who was admitted with acute respiratory failure in the setting of presumed acute on chronic diastolic heart failure as well as INGRIS. She was initially on bipap therapy for her dyspnea and hypoxia, and improved with diuresis. Initial troponin marcie slightly from 0.08 to 0.6, then increased up to 20 then downtrended to today 2.5. She was not started on heparin infusion after discussion with [facility] histologist due to her presenting anemia. She was initially on a nitroglycerine infusion but this was discontinued a few hours after her ICU admission. Bumex was added due to ineffective diuresis and patient is now down to 1L of oxygen via nasal cannula and feels improved. Her Cr has improved to 1.6 from 1.8 but baseline is around 0.9. Her Hg was also 7.1 on presentation, without overt signs or symptoms of bleeding. Because of this she was not anticoagulated as discussed above, she was continued on asa and plavix. She is currently on BID pantoprazole for possible upper GI source, but surgery was not interested in endoscopy at this time for further evaluation given her current NSTEMI. Hg has been stable at 8.4 the last 3 days. She had been in the process of stress testing with her regular histologist, after discussion she was recommended for transfer for [facility]. Discussed with [facility] histologist whom agreed with transfer for inpatient [facility] and ongoing managment of the above. Time Spent with Patient Time spent: Greater than 30 minutes Exam Vital Signs (past 8 hours): - 08/12/24 06:30 08/12/24 06:45 08/12/24 07:00 Temperature Pulse Rate 81 81 83 Respiratory Rate 21 20 22 Blood Pressure Pulse Oximetry Oxygen Delivery Method 08/12/24 07:34 08/12/24 07:35 08/12/24 08:00 Temperature 98.1 F Pulse Rate 86 Respiratory Rate 26 H Blood Pressure 127/58 L Pulse Oximetry 91 Oxygen Delivery Method Room Air 08/12/24 08:00 08/12/24 08:30 08/12/24 08:45 Temperature Pulse Rate 82 85 87 Respiratory Rate 22 25 H 29 H Blood Pressure Pulse Oximetry 89 L Oxygen Delivery Method 08/12/24 09:00 08/12/24 09:45 08/12/24 10:00 Temperature Pulse Rate 86 82 88 Respiratory Rate 24 21 17 Blood Pressure Pulse Oximetry 94 95 Oxygen Delivery Method 08/12/24 10:30 08/12/24 10:45 08/12/24 11:15 Temperature Pulse Rate 85 84 84 Respiratory Rate 24 23 23 Blood Pressure Pulse Oximetry 91 93 91 Oxygen Delivery Method 08/12/24 12:15 08/12/24 12:22 08/12/24 12:22 Temperature Pulse Rate 83 82 Respiratory Rate 24 23 Blood Pressure 134/63 Pulse Oximetry 91 92 Oxygen Delivery Method Fraction of Inspired Oxygen 32 Oxygen Delivery Method Room Air Oxygen Flow Rate 1 Objective Imaging Echo: My impression: Limited ECHO: 1) Normal left ventricular size with mildly reduced systolic function (EF 45- 50%). 2) There is a significant dyssynchronous contraction pattern, consistent with a conduction abnormality. 3) The right ventricle grossly appears normal in size with probable normal systolic function. 4) Compared to the Echo done 07/17/2024, LVEF has decreased slightly from 50- 55% to 45-50% on this study. Labs 08/13/24 04:30 08/13/24 03:40 Labs: Laboratory Results - last 24 hr 08/11/24 08/12/24 15:00 04:10 WBC 8.4 7.9 RBC 3.53 L 3.42 L Hgb 8.4 L 8.4 L Hct 26.4 L 25.4 L MCV 74.9 L 74.3 L MCH 24.0 L 24.5 L MCHC 32.0 33.0 RDW 20.1 H 20.7 H Plt Count 364 398 Sodium 134 L 136 L Potassium 4.1 3.4 Chloride 96 L 94 L Carbon Dioxide 33 H 36 H BUN 53 H 47 H Creatinine 1.61 H 1.61 H Estimated GFR 35 L 35 L BUN/Creatinine Ratio 32.9 H 29.2 H Glucose 161 H 107 Calcium 9.2 9.1 Magnesium 2.1 Troponin I 2.540 H* PFSH Social History household members: spouse Smoking Status: Former smoker alcohol intake: current Discharge Plan Discharge Plan [facility] Disposition[facility] Other facility: [facility] Discharge Location: [facility] Nursing Discharge Comment: Patient transferred to [facility] for higher level of care Discharge Data Primary Care Provider: Humza Ferrer Quality VTE Deep Vein Thrombosis/Pulmonary Embolism Present on Admission: No
[2024-08-12 15:19] LABS: D Dimer 453 ng/ml (<500)
[2024-08-12] MEDS: LORazepam 0.5 MG TABLET PO (15:27)
--- NOTE | 2024-08-12 15:34 | P.PN_ITS ---
Subjective Subjective Interval history: 63 F admitted with anemia, respiratory failure, acute on chronic diastolic heart failure presumed to be from acute NSTEMI. Improved today, accepted for transfer for [facility], currently awaiting bed. Exam Vital Signs (past 8 hours): - 08/12/24 07:35 08/12/24 08:00 08/12/24 08:00 Temperature 98.1 F Pulse Rate 86 82 Respiratory Rate 26 H 22 Blood Pressure Pulse Oximetry 91 89 L Oxygen Delivery Method Room Air 08/12/24 08:30 08/12/24 08:45 08/12/24 09:00 Temperature Pulse Rate 85 87 86 Respiratory Rate 25 H 29 H 24 Blood Pressure Pulse Oximetry Oxygen Delivery Method 08/12/24 09:45 08/12/24 10:00 08/12/24 10:30 Temperature Pulse Rate 82 88 85 Respiratory Rate 21 17 24 Blood Pressure Pulse Oximetry 94 95 91 Oxygen Delivery Method 08/12/24 10:45 08/12/24 11:15 08/12/24 12:15 Temperature Pulse Rate 84 84 83 Respiratory Rate 23 23 24 Blood Pressure Pulse Oximetry 93 91 91 Oxygen Delivery Method 08/12/24 12:22 08/12/24 12:22 08/12/24 12:30 Temperature 97.8 F Pulse Rate 82 Respiratory Rate 23 Blood Pressure 134/63 134/63 Pulse Oximetry 92 Oxygen Delivery Method 08/12/24 12:30 08/12/24 13:30 08/12/24 14:00 Temperature Pulse Rate 86 84 82 Respiratory Rate 21 22 23 Blood Pressure Pulse Oximetry Oxygen Delivery Method 08/12/24 14:15 08/12/24 14:30 Temperature Pulse Rate 83 84 Respiratory Rate 22 23 Blood Pressure Pulse Oximetry Oxygen Delivery Method Fraction of Inspired Oxygen 32 Oxygen Delivery Method Room Air Oxygen Flow Rate 1 Narrative Exam Narrative: NAD, alert and oriented. Fluent speech. Lungs are clear, normal rate and effort. Heart is regular, no murmur gallop or rub. Abdomen is soft, non distended. Extremities are free of edema. Objective Labs 08/12/24 04:10 08/12/24 04:10 Labs: Laboratory Results - last 24 hr 08/12/24 08/12/24 04:10 14:54 WBC 7.9 RBC 3.42 L Hgb 8.4 L Hct 25.4 L MCV 74.3 L MCH 24.5 L MCHC 33.0 RDW 20.7 H Plt Count 398 D-Dimer 453 Sodium 136 L Potassium 3.4 Chloride 94 L Carbon Dioxide 36 H BUN 47 H Creatinine 1.61 H Estimated GFR 35 L BUN/Creatinine Ratio 29.2 H Glucose 107 Calcium 9.1 Troponin I 2.540 H* [facility] Social History household members: spouse Smoking Status: Former smoker alcohol intake: current Assessment & Plan Assessment & Plan narrative: 1. Acute diastolic congestive heart failure. Present on admission and improving. 2. Bilateral pulmonary infiltrates, severe leukocytosis, possible community- acquired pneumonia versus pulmonary edema. Present on admission and improving 3. NSTEMI. Present on admission and active. 4. Chronic left bundle-branch block. Present on admission and active. 5. Acute hypoxic respiratory failure, present on admission and improving. 6. Microcytic anemia, probable chronic GI bleeding. Transfuse 1 unit packed red blood cell in the emergency department. Follow closely given volume overload status. 7. Acute kidney injury. Present on admission and active. 8. Sepsis ruled out with elevated serum lactate. Present on admission and active. 9. Diabetes mellitus. Monitor with sliding scale insulin coverage. 10. Hypertension. Hold antihypertensives. 11. Hyperlipidemia. Stable. 12. DVT prophylaxis. Place sequential compression devices. Avoid anticoagulation. 13. Code status: Full code. The patient states that she may reconsider this upon further discussion with her . Plan: -follow hemoglobin (stable). Continue Protonix b.i.d.. Monitor for evidence of melena. None since admit. Likely outpatient evluation in setting of NSTEMI. -started on metoprolol, and aspirin as well as atorvastatin. -echo looks reassuring though slight decrease in EF to approx 45%. No WMA. Discussed with [place] unarmed security guard Dr. Kong, and hospitalist at [facility]. Accepted for transfer today for [facility]. Did recommend d-dimer and if elevated then CTA. Likely no bed available today. -Continue Bumex 2 mg IV q.12 hours today. Net negative 3L in the last 24 hours, total net negative 9L since admit on 08/08. -will stop ceftriaxone, no evidence of active infection currently. Code: DNR, surrogate is patient's spouse, okay with plan for [facility] Dispo: patient admitted under inpatient status. Pending transfer for [facility] to [facility], accepting hospitalist Dr. Bonilla. Additional history obtained via discussions with [facility] [employer] Mill Operator and hospitalist. These discussions contributed to the creation of the above assessment and plan. I have reviewed patient's presenting documentation, labs, and imaging personally. Likely transfer tomorrow, pending bed availability. Time-Based Coding :: [TOTAL MINUTES] spent with patient and on the chart (including review of chart, obtaining history, exam, reviewing outside data, placing orders, documenting exam and treatment plan, and counseling patient) on [DATE]. Quality VTE Deep Vein Thrombosis/Pulmonary Embolism Present on Admission: No
[2024-08-12] MEDS: GABAPENTIN 100 MG CAPSULE PO (17:17)
[2024-08-12] MEDS: TRAZODONE 50 MG TABLET 100 MG PO (21:17)
[2024-08-12] MEDS: INSULIN GLARGINE 100 UNIT/ML 3ML PEN 48 UNIT SUBCUT (21:17)
[2024-08-12] MEDS: HYDROCORTISONE 2.5% CREAM 30 GM 1 APPLIC TOP (21:20)
[2024-08-13] VITALS (70 sets, daily range): BP systolic 114–176; BP diastolic 55–74; PULSE 72–108; RESP 14–37; TEMP 36.1–36.8; O2SAT 89–98
[2024-08-13 04:32] LABS: BUN Creatinine Ratio 33.8 (6-22); Blood Urea Nitrogen 47 mg/dL (7-17); Calcium 9.1 mg/dL (8.4-10.2); Carbon Dioxide 35 mmol/L (22-32); Chloride 94 mmol/L (98-107); Estimated Glomerular Filt Rate 42 mL/min (>60); Glucose 148 mg/dL (80-110); HEMOLYSIS 19 (0-50); Potassium 3.8 mmol/L (3.4-5.1); Sodium 136 mmol/L (137-145)
[2024-08-13 04:56] LABS: Hematocrit 24.5 % (36-46); Hemoglobin 8.1 g/dL (12.0-16.0); Mean Corpuscular HGB Conc 32.8 % (30-36); Mean Corpuscular Hemoglobin 24.2 PG (26-34); Mean Corpuscular Volume 73.8 fL (80-100); Platelet Count 372 X10^3/uL (150-400); Red Blood Cell Count 3.32 X10^6/uL (4.0-5.2); Red Cell Distribution Width 20.2 % (11.6-14.8); White Blood Cell Count 7.4 X10^3/uL (4.5-11.0)
[2024-08-13] MEDS: METOPROLOL ER 25 MG TABLET PO (09:00)
[2024-08-13] MEDS: ISOSORBIDE MONONITRATE ER 30 MG TABLET PO (09:00)
[2024-08-13] MEDS: LACTOBACILLUS ACIDOPHILUS TABLET 1 EACH PO ×2 (09:00→17:26)
[2024-08-13] MEDS: BUMETANIDE 1 MG/4 ML VIAL 2 MG IV ×2 (09:01→21:41)
[2024-08-13] MEDS: FENOFIBRATE, MICRONIZED 67 MG CAPSULE PO (09:01)
[2024-08-13] MEDS: ATORVASTATIN 20 MG TABLET 80 MG PO (09:01)
[2024-08-13] MEDS: ASPIRIN EC 81 MG TABLET PO (09:01)
[2024-08-13] MEDS: SPIRONOLACTONE 12.5 MG TABLET PO (09:11)
[2024-08-13] MEDS: INSULIN GLARGINE 100 UNIT/ML 3ML PEN 52 UNIT SUBCUT (09:12)
[2024-08-13] MEDS: PANTOPRAZOLE DR 40 MG TABLET PO ×2 (09:16→21:42)
--- NOTE | 2024-08-13 11:18 | CM.DPNOTE ---
DCP Note ENTRY OPERATOR reviewed EMR. Per ore charger, pt accepted at [facility], pending bed availability, for further cardio workup. Likely transfer later today. CM team will continue to follow as needed SHAMA Childers
[2024-08-13] MEDS: INSULIN LISPRO 100 UNIT/ML 3ML VIAL SUBCUT ×3 (11:57→20:48)
[2024-08-13] MEDS: diphenhydrAMINE 50 MG/ML VIAL 25 MG IV (11:58)
[2024-08-13] MEDS: GABAPENTIN 100 MG CAPSULE PO (17:26)
--- NOTE | 2024-08-13 19:18 | PC.NURSE ---
0700 Report received from pernell RN. Plan of care discussed. 1200 Focused assessment completed. No changes from baseline status. 1600 Focused assessment completed. No changes from baseline status. 1919 [facility]. Plan of care discussed. Patient with no complaints at this time.
[2024-08-13] MEDS: INSULIN GLARGINE 100 UNIT/ML 3ML PEN 48 UNIT SUBCUT (20:50)
[2024-08-13] MEDS: LORazepam 0.5 MG TABLET PO (21:41)
[2024-08-13] MEDS: TRAZODONE 50 MG TABLET 100 MG PO (21:41)
[2024-08-14] VITALS: BP 148/64; PULSE 83; RESP 22; O2SAT 96
[2024-08-14 00:15] VITALS: PULSE 83; RESP 20; O2SAT 95
[2024-08-14] MEDS: ACETAMINOPHEN 325 MG TABLET 650 MG PO (00:20)
[2024-08-14] MEDS: LORazepam 0.5 MG TABLET PO (02:29)
--- NOTE | 2024-08-14 03:42 | PC.NURSE ---
Patient transferred to [facility] by [facility], report given to Sisi Ingram RN, bedside report given to ambulance RN, in stable condition.
== END 2024-08-14 02:30 | disposition short-term general hospital (02) | DRG 280 ==
LOC: ED 13:11 → AC 16:45 → ICU 17:00
PROVIDERS: Hospitalist; Internal Medicine; Admitting Provider Student in an Organized Health Care Education/Training Program; Emergency Provider Emergency Medicine; PCP Family Medicine; Referring Provider Emergency Medicine; Visit Provider Student in an Organized Health Care Education/Training Program
DX: I11.0 Hypertensive heart disease with heart failure (principal); I50.33 Acute on chronic diastolic (congestive) heart failure; I21.4 Non-ST elevation (NSTEMI) myocardial infarction; J18.9 Pneumonia, unspecified organism; J96.01 Acute respiratory failure with hypoxia; I69.351 Hemiplegia and hemiparesis following cerebral infarction affecting right dominant side; N17.9 Acute kidney failure, unspecified; K92.1 Melena; I44.7 Left bundle-branch block, unspecified; D50.0 Iron deficiency anemia secondary to blood loss (chronic); E11.9 Type 2 diabetes mellitus without complications; E78.5 Hyperlipidemia, unspecified; Z87.891 Personal history of nicotine dependence; Z79.4 Long term (current) use of insulin; Z79.84 Long term (current) use of oral hypoglycemic drugs
CPT/HCPCS: 36415; 36430; 36600; 71045; 74174; 76705; 80048; 80053; 81001; 82550; 82805; 82962; 83605; 83690; 83735; 83880; 84145; 84484; 85018; 85025; 85027; 85379; 85610; 85730; 86850; 86900; 86901; 87040; 87077; 87086; 87186; 87633; 87797; 93005; 93307; 94660; 96365; 96375; 96376; 97162; 97530; 99285; 99291; P9016; J0696; J1170; J1200; J1815; J1940; J2470; J2543; Q9967

== ENCOUNTER → 2024-10-30 08:56 | Outpatient (CLI) | payer OTHER, MEDICARE, SELFPAY ==
[2024-08-08 17:35] VITALS: BMI 39.5
[2024-08-09 01:40] VITALS: PULSE 98; RESP 17; O2SAT 94
[2024-10-30 10:19] LABS: Add Manual Diff / Slide Review NO; Basophils Absolute Auto 100 /uL (0-100); Basophils Percent Auto 0.9 % (0-2); Eosinophils Absolute Auto 300 /uL (0-450); Eosinophils Percent Auto 3.9 % (2-4); Hematocrit 38.3 % (36-46); Hemoglobin 12.3 g/dL (12.0-16.0); Lymphocytes Absolute Auto 1400 /uL (1100-4500); Lymphocytes Percent Auto 20.9 % (25-40); Mean Corpuscular HGB Conc 32.1 % (30-36); Mean Corpuscular Hemoglobin 27.3 PG (26-34); Monocytes Absolute Auto 400 /uL (0-900); Monocytes Percent Auto 6.1 % (3-14); Neutrophils Absolute Auto 4600 /uL (1500-7000); Neutrophils Percent Auto 68.2 % (50-75); Platelet Count 256 X10^3/uL (150-400); Red Blood Cell Count 4.51 X10^6/uL (4.0-5.2); Red Cell Distribution Width 19.3 % (11.6-14.8); White Blood Cell Count 6.7 X10^3/uL (4.5-11.0)
[2024-10-30 10:23] LABS: Appearance Urine UA CLOUDY; Bilirubin Urine UA NEGATIVE (NEGATIVE); Color Urine UA YELLOW; Glucose Urine UA NEGATIVE (Negative); Ketones Urine UA NEGATIVE (NEGATIVE); Leukocyte Esterase Urine UA 2+ (NEGATIVE); Nitrite Urine UA NEGATIVE (Negative); Occult Blood Urine UA 2+ (Negative); Protein Urine UA NEGATIVE (Negative); pH Urine UA 5.5 (4.5-8.0)
[2024-10-30 10:30] LABS: Hemoglobin A1C% w Est Avg Glu 6.8 % (4.0-6.0)
[2024-10-30 10:35] LABS: Bacteria Urine Many (>30); Culture Indicated Urine Specimen Cultured; RBC Urine 10-30/HPF (0-5/HPF); Squamous Epithelial Cell Urine 1-5 /HPF (0-5/HPF); Urine Volume 10mL (spun); WBC Urine 10-30/HPF (0-5/HPF)
[2024-10-30 10:42] LABS: HEMOLYSIS < 15 (0-50); Iron 95 ug/dL (37-170)
[2024-10-30 10:44] LABS: Cholesterol 191 mg/dL (140-199); HDL Cholesterol 52 mg/dL (40-60); LDL Cholesterol Calculated 74 mg/dL (<100); Triglycerides 325 mg/dL (35-150)
[2024-10-30 10:53] LABS: Percent Iron Saturation 30 % (15-50); Total Iron Binding Capacity 312 ug/dL (265-497); Transferrin 295 mg/dL (206-381)
[2024-11-01 14:32] LABS: Alanine Aminotransferase 23 IU/L (<35); Albumin 3.9 g/dL (3.5-5.0); Albumin Globulin Ratio 1.3 (1.0-2.8); Alkaline Phosphatase 76 U/L (38-126); Aspartate Aminotransferase 25 IU/L (14-36); BUN Creatinine Ratio 16.4 (6-22); Bilirubin Total 0.5 mg/dL (0.2-1.3); Blood Urea Nitrogen 23 mg/dL (7-17); Calcium 9.9 mg/dL (8.4-10.2); Carbon Dioxide 28 mmol/L (22-32); Chloride 97 mmol/L (98-107); Estimated Glomerular Filt Rate 41 mL/min (>60); Globulin 3.1 g/dL (1.7-4.1); Glucose 278 mg/dL (80-110); HEMOLYSIS < 15 (0-50); Potassium 4.7 mmol/L (3.4-5.1); Sodium 132 mmol/L (137-145)
== END ==
PROVIDERS: PCP Nurse Practitioner Family; Referring Provider Nurse Practitioner Family; Visit Provider Nurse Practitioner Family
DX: I50.9 Heart failure, unspecified (principal); E78.5 Hyperlipidemia, unspecified; E11.9 Type 2 diabetes mellitus without complications
CPT/HCPCS: 36415; 80053; 80061; 81001; 83036; 83540; 83550; 85025; 87077; 87086; 87186

== ENCOUNTER → 2025-01-16 14:04 | Outpatient (CLI) | payer MEDICARE, SELFPAY ==
[2024-08-08 17:35] VITALS: BMI 39.5
[2024-08-09 01:40] VITALS: PULSE 98; RESP 17; O2SAT 94
[2025-01-16 14:31] LABS: Add Manual Diff / Slide Review NO; Basophils Absolute Auto 100 /uL (0-100); Eosinophils Absolute Auto 300 /uL (0-450); Eosinophils Percent Auto 3.1 % (2-4); Hematocrit 37.6 % (36-46); Hemoglobin 12.4 g/dL (12.0-16.0); Lymphocytes Absolute Auto 1300 /uL (1100-4500); Lymphocytes Percent Auto 15.1 % (25-40); Mean Corpuscular Hemoglobin 29.1 PG (26-34); Mean Corpuscular Volume 88.1 fL (80-100); Monocytes Absolute Auto 400 /uL (0-900); Monocytes Percent Auto 4.7 % (3-14); Neutrophils Absolute Auto 6400 /uL (1500-7000); Neutrophils Percent Auto 76.1 % (50-75); Platelet Count 277 X10^3/uL (150-400); Red Blood Cell Count 4.27 X10^6/uL (4.0-5.2); Red Cell Distribution Width 16.2 % (11.6-14.8); White Blood Cell Count 8.4 X10^3/uL (4.5-11.0)
[2025-01-16 14:41] LABS: HEMOLYSIS < 15 (0-50)
[2025-01-16 14:44] LABS: HEMOLYSIS < 15 (0-50); Iron 79 ug/dL (37-170)
[2025-01-16 14:47] LABS: BUN Creatinine Ratio 20.7 (6-22); Blood Urea Nitrogen 29 mg/dL (7-17); Calcium 9.8 mg/dL (8.4-10.2); Carbon Dioxide 32 mmol/L (22-32); Chloride 99 mmol/L (98-107); Cholesterol 184 mg/dL (140-199); Estimated Glomerular Filt Rate 41 mL/min (>60); Glucose 181 mg/dL (80-110); HDL Cholesterol 47 mg/dL (40-60); LDL Cholesterol Calculated 83 mg/dL (<100); Potassium 4.6 mmol/L (3.4-5.1); Sodium 137 mmol/L (137-145); Triglycerides 269 mg/dL (35-150)
[2025-01-16 14:56] LABS: Percent Iron Saturation 22 % (15-50); Total Iron Binding Capacity 355 ug/dL (265-497); Transferrin 339 mg/dL (206-381)
[2025-01-16 15:16] LABS: TSH w/ Reflex to FT4 2.07 uIU/mL (0.47-4.68)
[2025-01-16 15:38] LABS: Ferritin 83 ng/mL (11-264)
== END ==
PROVIDERS: PCP Nurse Practitioner Family; Referring Provider Nurse Practitioner Family; Visit Provider Nurse Practitioner Family
DX: E11.9 Type 2 diabetes mellitus without complications (principal); E78.5 Hyperlipidemia, unspecified; R68.89 Other general symptoms and signs; G62.9 Polyneuropathy, unspecified; N18.30 Chronic kidney disease, stage 3 unspecified; I25.10 Atherosclerotic heart disease of native coronary artery without angina pectoris; N18.9 Chronic kidney disease, unspecified; I50.9 Heart failure, unspecified; D64.9 Anemia, unspecified
CPT/HCPCS: 36415; 80048; 80061; 82728; 83540; 83550; 84443; 85025

== ENCOUNTER → 2025-03-05 16:14 | Outpatient (CLI) | payer MEDICARE, SELFPAY ==
[2024-08-08 17:35] VITALS: BMI 39.5
[2024-08-09 01:40] VITALS: PULSE 98; RESP 17; O2SAT 94
[2025-03-05 17:32] LABS: BUN Creatinine Ratio 19.3 (6-22); Blood Urea Nitrogen 33 mg/dL (7-17); Calcium 10.1 mg/dL (8.4-10.2); Carbon Dioxide 33 mmol/L (22-32); Chloride 96 mmol/L (98-107); Estimated Glomerular Filt Rate 33 mL/min (>60); Glucose 85 mg/dL (80-110); HEMOLYSIS < 15 (0-50); Phosphorous 3.9 mg/dL (2.8-4.1); Potassium 4.3 mmol/L (3.4-5.1); Sodium 139 mmol/L (137-145)
[2025-03-06 23:09] LABS: Complement C3 155 mg/dL (82-167)
[2025-03-08 07:09] LABS: Parathyroid Hormone Int 62 pg/mL (15-65)
== END ==
PROVIDERS: PCP Nurse Practitioner Family; Referring Provider Internal Medicine Nephrology; Visit Provider Internal Medicine Nephrology
DX: N05.9 Unspecified nephritic syndrome with unspecified morphologic changes (principal); N25.81 Secondary hyperparathyroidism of renal origin; E83.30 Disorder of phosphorus metabolism, unspecified; D89.89 Other specified disorders involving the immune mechanism, not elsewhere classified
CPT/HCPCS: 36415; 80048; 83970; 84100; 86160

== ENCOUNTER → 2025-04-02 15:12 | Outpatient (CLI) | payer MEDICARE, SELFPAY ==
[2024-08-08 17:35] VITALS: BMI 39.5
[2024-08-09 01:40] VITALS: PULSE 98; RESP 17; O2SAT 94
[2025-04-02 15:43] LABS: Add Manual Diff / Slide Review NO; Basophils Absolute Auto 100 /uL (0-100); Basophils Percent Auto 0.9 % (0-2); Eosinophils Absolute Auto 300 /uL (0-450); Hematocrit 35.8 % (36-46); Hemoglobin 11.8 g/dL (12.0-16.0); Lymphocytes Absolute Auto 1000 /uL (1100-4500); Mean Corpuscular HGB Conc 33.1 % (30-36); Mean Corpuscular Hemoglobin 30.2 PG (26-34); Mean Corpuscular Volume 91.1 fL (80-100); Monocytes Absolute Auto 500 /uL (0-900); Monocytes Percent Auto 5.1 % (3-14); Neutrophils Absolute Auto 8200 /uL (1500-7000); Platelet Count 311 X10^3/uL (150-400); Red Blood Cell Count 3.93 X10^6/uL (4.0-5.2); Red Cell Distribution Width 14.8 % (11.6-14.8); White Blood Cell Count 10.2 X10^3/uL (4.5-11.0)
[2025-04-02 16:08] LABS: HEMOLYSIS < 15 (0-50); Iron 155 ug/dL (37-170)
[2025-04-02 16:23] LABS: Percent Iron Saturation 37 % (15-50); Total Iron Binding Capacity 419 ug/dL (265-497); Transferrin 369 mg/dL (206-381)
[2025-04-02 16:48] LABS: Ferritin 34 ng/mL (11-264)
== END ==
LOC: LAB 15:14
PROVIDERS: PCP Nurse Practitioner Family; Referring Provider Nurse Practitioner Family; Visit Provider Nurse Practitioner Family
DX: I25.10 Atherosclerotic heart disease of native coronary artery without angina pectoris (principal); N18.9 Chronic kidney disease, unspecified; D64.9 Anemia, unspecified; E11.9 Type 2 diabetes mellitus without complications
CPT/HCPCS: 36415; 82728; 83540; 83550; 85025

== ENCOUNTER → 2025-09-02 12:34 | Outpatient (CLI) | payer MEDICARE, SELFPAY ==
[2024-08-08 17:35] VITALS: BMI 39.5
[2024-08-09 01:40] VITALS: PULSE 98; RESP 17; O2SAT 94
--- NOTE | 2025-09-02 12:35 | DI.US.S_ITS ---
PROCEDURE: US SHALINI LIMITED SINGLE LEVEL INDICATIONS: PERIPHERAL EDEMA TECHNIQUE: Real time scanning was performed of the calf arteries with image documentation. Ankle-brachial indices were obtained bilaterally and recorded. COMPARISON: [facility], CT, CT ANGIO ABD/PEL GI BLEED, 08/08/2024, 14:12. FINDINGS: Right SECURITY THREAT ANALYST 36 cm/sec. Right DPA 189 cm/sec. Left SECURITY THREAT ANALYST 59 cm/sec. Left DPA 112 cm/sec. There is medial calcinosis due to diabetes. Monophasic waveforms. Subcutaneous edema is seen. Ankle-brachial indices: Right SHALINI 1.0. Left SHALINI 1.0. IMPRESSION: ABIs are within normal limits. However, these could be falsely normalized due to medial calcinosis of diabetes. Atherosclerotic calcified plaques seen on prior CT in the abdomen. Subcutaneous edema. Dictated by: Mello Zamora M.D. on 09/03/2025 at 12:21 Approved by: Mello Zamora M.D. on 09/03/2025 at 12:58
== END ==
LOC: US 12:34
PROVIDERS: PCP Student in an Organized Health Care Education/Training Program; Referring Provider Student in an Organized Health Care Education/Training Program; Visit Provider Student in an Organized Health Care Education/Training Program
DX: I73.9 Peripheral vascular disease, unspecified (principal); R60.0 Localized edema
CPT/HCPCS: 93922